=== PATIENT | female | born 1960 | race Caucasian/White ===

== ENCOUNTER → 2017-12-14 09:55 | Outpatient (CLI) | payer OTHER, SELFPAY ==
--- NOTE | 2017-12-14 10:01 | RAD_ITS ---
STUDY: X-RAY - PELVIS AND RIGHT HIP REASON FOR EXAM: Female, 57 years old. Bilateral hip pain TECHNIQUE: Radiological exam, hip, unilateral, with pelvis when performed; 2 or 3 views. COMPARISON: None. FINDINGS: There is a non-specific bowel gas pattern. Normal visualized soft tissue structures. There is minimal narrowing with cortical sclerosis and osteophyte formation of the sacroiliac joint consistent with degenerative osteoarthritic changes. Normal bilateral superior and inferior pubic rami. Normal pubic symphysis. Normal bilateral ischial tuberosities. Normal visualized femoral head. Normal acetabulum. Normal hip joint. RAD/Hip 2-3 Views with Pelvis IMPRESSION: Mild degenerative changes. Electronically Signed: Mariel Garcia MD at 4:09 EST , Service support ,
--- NOTE | 2017-12-14 10:01 | RAD_ITS ---
STUDY: X-RAY - PELVIS AND LEFT HIP REASON FOR EXAM: Female, 57 years old. Bilateral hip pain TECHNIQUE: Radiological exam, hip, unilateral, with pelvis when performed; 2 or 3 views. COMPARISON: None. FINDINGS: There is a non-specific bowel gas pattern. Normal visualized soft tissue structures. There is minimal narrowing with cortical sclerosis and osteophyte formation of the sacroiliac joint consistent with degenerative osteoarthritic changes. Normal bilateral superior and inferior pubic rami. Normal pubic symphysis. Normal bilateral ischial tuberosities. Normal visualized femoral head. Normal acetabulum. Normal hip joint. Benign appearing small bone sclerosis superior to the left acetabulum. RAD/Hip 2-3 Views with Pelvis IMPRESSION: Minimal degenerative changes centered at the sacroiliac joints. Electronically Signed: Mariel Garcia MD at 4:09 EST , Service support ,
== END ==
PROVIDERS: Family Provider Nurse Practitioner; PCP Nurse Practitioner; Visit Provider Nurse Practitioner
DX: M25.551 Pain in right hip (principal); M25.552 Pain in left hip
CPT/HCPCS: 73502

== ENCOUNTER → 2018-06-07 13:21 | Outpatient (CLI) | payer OTHER, SELFPAY | PROVIDERS: Family Provider Nurse Practitioner; PCP Nurse Practitioner; Visit Provider Internal Medicine Cardiovascular Disease | DX: I49.3 Ventricular premature depolarization (principal); Z86.79 Personal history of other diseases of the circulatory system; I47.2 Ventricular tachycardia; I10 Essential (primary) hypertension; E78.5 Hyperlipidemia, unspecified | CPT/HCPCS: 95806 ==

== ENCOUNTER → 2018-11-29 07:34 | Outpatient (CLI) | payer OTHER, SELFPAY ==
[2018-05-11 13:24] VITALS: BMI 32.8
[2018-11-29 10:10] LABS: AST(SGOT) 22 U/L (15-37); Alanine Aminotransfer ALT/SGPT 36 U/L (13-56); Albumin, Serum 3.7 g/dL (3.2-5.0); Alkaline Phosphatase 113 U/L (45-117); Bilirubin, Direct 0.15 mg/dL (0.00-0.30); Cholesterol 213 mg/dL (200); Globulin 3.3 g/dL (2.2-4.2); High Density Lipoprotein 54 mg/dL; Triglycerides 199 mg/dL; Very Low Density Lipoprotein 40 mg/dL (5-40)
== END ==
PROVIDERS: Family Provider Family Medicine; PCP Family Medicine; Referring Provider Internal Medicine Cardiovascular Disease; Visit Provider Internal Medicine Cardiovascular Disease
DX: E78.5 Hyperlipidemia, unspecified (principal)
CPT/HCPCS: 36415; 80061; 80076

== ENCOUNTER → 2019-01-24 09:16 | Outpatient (CLI) | payer OTHER, SELFPAY ==
[2018-11-30 13:14] VITALS: BMI 33.3
--- NOTE | 2019-01-24 09:20 | STE_ITS ---
Reason For Study: Arrhythmia Stress Results Protocol: Gregg Protocol Maximum Predicted HR: 164 bpm Target HR: 139 bpm % Maximum Predicted HR: 138 % Heart Stage Duration Rate BP Comment (mm:ss) (bpm) Baseline 65 132/84No Chest Pain Gregg Protocol Stage I 3:00 111 140/76No Chest Pain Gregg Protocol Stage II 3:00 129 148/72No Chest Pain Gregg Protocol Stage III 0:50 226 / Narrow Complex Tachycardia-Stopped Treadmill Patient Coughed While Lying Down and Broke Narrow Complex Recovery 80 128/72Tachycardia, Denied Chest Pain Stress Duration: 6:50 mm:ss Maximum Stress HR: 226 bpm METS: 9 Baseline Echocardiogram Findings The estimated ejection fraction is 65 %. Stress Echo Wall motion Data Resting WM Intermediate WM Stress WM Wall Motion Stress No regional wall motion abnormalities noted. EKG Data The baseline ECG displays normal sinus rhythm. The patient exercised according to the regular Gregg protocol for a total duration of 6:50. The maximum heart rate attained was 235 beats per minute. This was 143% of maximum predicted heart rate. The patient exercised into stage 3 of the Gregg protocol. During stress, there were no ST or T wave changes noted to suggest ischemia. No clinical angina was noted. Interpretation Summary The estimated ejection fraction is 65 %. Normal, adequate, treadmill echocardiogram. Negative for ischemia by EKG and echocardiographic criteria. No anginal symptoms noted. Patient did developed narrow complex supra ventricular tachycardia during exercise at a rate of around 230 bpm at around 6:45 seconds into exercise. Test was terminated, and her SVT resolved after coughing around 1:39 seconds into recovery. At no time did she have any anginal symptoms. No additional arrhythmias noted. Average exercise capacity for age. Final LVEF is 75%. Recommend consideration of changing from beta-blockers to calcium channel blockers to avoid recurrent supraventricular tachycardia. No complications. Ordering Physician: Josue Ogden Referring Physician: Michell Johnson Performed By: RoofYovana RDCS, RVT
[2019-01-24 10:40] LABS: AST(SGOT) 21 U/L (15-37); Alanine Aminotransfer ALT/SGPT 28 U/L (13-56); Albumin, Serum 3.7 g/dL (3.2-5.0); Alkaline Phosphatase 93 U/L (45-117); Bilirubin, Direct 0.16 mg/dL (0.00-0.30); Cholesterol 194 mg/dL (200); High Density Lipoprotein 63 mg/dL; Protein, Total 6.7 g/dL (6.4-8.2); Triglycerides 117 mg/dL; Very Low Density Lipoprotein 23 mg/dL (5-40)
== END ==
PROVIDERS: Family Provider Family Medicine; PCP Family Medicine; Referring Provider Internal Medicine Cardiovascular Disease; Visit Provider Internal Medicine Cardiovascular Disease
DX: R55 Syncope and collapse (principal); I49.3 Ventricular premature depolarization; I47.2 Ventricular tachycardia; Z82.49 Family history of ischemic heart disease and other diseases of the circulatory system; E78.5 Hyperlipidemia, unspecified
CPT/HCPCS: 36415; 80061; 80076; 93017; 93350

== ENCOUNTER → 2019-03-28 | Outpatient (CLI) | payer OTHER, SELFPAY ==
[2018-11-30 13:14] VITALS: BMI 33.3
--- NOTE | 2019-03-28 09:50 | US_ITS ---
STUDY: SUPERFICIAL ULTRASOUND - RIGHT FOREARM REASON FOR EXAM: Female, 58 years old. Lump on the right forearm TECHNIQUE: A superficial ultrasound was performed with real-time and static qiu-scale imaging. COMPARISON: None. FINDINGS: In the area of concern, there is a palpable lump which show some prominence in the tissue measuring 2.4 x 1.9 x 0.8 cm. This is relatively isoechoic to the surrounding tissue. Possibly an isoechoic lipoma US/Ext Non Vasc Limited/Soft Tiss IMPRESSION: As above Electronically Signed: Mandeep Archer DO at 13:10 EDT Tel , Service support ,
== END | disposition home or self-care (01) ==
LOC: US 09:49
PROVIDERS: Family Provider Family Medicine; PCP Family Medicine; Referring Provider Family Medicine; Visit Provider Family Medicine
DX: R22.31 Localized swelling, mass and lump, right upper limb (principal)
CPT/HCPCS: 76882

== ENCOUNTER → 2019-07-04 08:18 | Outpatient (CLI) | payer OTHER, SELFPAY ==
[2018-11-30 13:14] VITALS: BMI 33.3
[2019-07-04 09:12] LABS: AST(SGOT) 27 U/L (15-37); Alanine Aminotransfer ALT/SGPT 43 U/L (13-56); Albumin, Serum 3.8 g/dL (3.2-5.0); Alkaline Phosphatase 106 U/L (45-117); Bilirubin, Direct 0.15 mg/dL (0.00-0.30); Cholesterol 193 mg/dL (200); Globulin 3.2 g/dL (2.2-4.2); High Density Lipoprotein 63 mg/dL; Triglycerides 123 mg/dL; Very Low Density Lipoprotein 25 mg/dL (5-40)
== END ==
PROVIDERS: Family Provider Family Medicine; PCP Family Medicine; Referring Provider Physician Assistant Medical; Visit Provider Physician Assistant Medical
DX: E78.5 Hyperlipidemia, unspecified (principal)
CPT/HCPCS: 36415; 80061; 80076

== ENCOUNTER → 2020-03-30 | Outpatient (CLI) | payer OTHER, SELFPAY ==
[2019-07-04 14:12] VITALS: BMI 33.5
[2020-03-30 09:51] LABS: AST(SGOT) 15 U/L (15-37); Alanine Aminotransfer ALT/SGPT 28 U/L (13-56); Albumin, Serum 3.7 g/dL (3.2-5.0); Alkaline Phosphatase 78 U/L (45-117); Bilirubin, Direct 0.17 mg/dL (0.00-0.30); Cholesterol 221 mg/dL (200); Globulin 3.2 g/dL (2.2-4.2); High Density Lipoprotein 62 mg/dL; Protein, Total 6.9 g/dL (6.4-8.2); Triglycerides 79 mg/dL; Very Low Density Lipoprotein 16 mg/dL (5-40)
== END | disposition home or self-care (01) ==
LOC: LAB 08:38
PROVIDERS: PCP Family Medicine; Referring Provider Internal Medicine Cardiovascular Disease; Visit Provider Internal Medicine Cardiovascular Disease
DX: E78.5 Hyperlipidemia, unspecified (principal)
CPT/HCPCS: 36415; 80061; 80076

== ENCOUNTER → 2020-09-26 09:48 | Outpatient (CLI) | payer OTHER, SELFPAY ==
[2020-04-02 10:37] VITALS: BMI 30.7
[2020-09-26 10:51] LABS: AST(SGOT) 30 U/L (15-37); Alanine Aminotransfer ALT/SGPT 46 U/L (13-56); Albumin, Serum 3.9 g/dL (3.2-5.0); Alkaline Phosphatase 121 U/L (45-117); Bilirubin, Direct 0.19 mg/dL (0.00-0.30); Cholesterol 221 mg/dL (200); Globulin 3.2 g/dL (2.2-4.2); High Density Lipoprotein 79 mg/dL; Protein, Total 7.1 g/dL (6.4-8.2); Triglycerides 53 mg/dL; Very Low Density Lipoprotein 11 mg/dL (5-40)
== END ==
PROVIDERS: PCP Family Medicine; Referring Provider Nurse Practitioner Family; Visit Provider Nurse Practitioner Family
DX: E78.00 Pure hypercholesterolemia, unspecified (principal)
CPT/HCPCS: 36415; 80061; 80076

== ENCOUNTER → 2020-10-15 08:53 | Outpatient (CLI) | payer OTHER, SELFPAY ==
[2020-10-09 14:34] VITALS: BMI 32.5
== END ==
PROVIDERS: PCP Family Medicine; Referring Provider Specialist; Visit Provider Specialist
DX: R00.2 Palpitations (principal)
CPT/HCPCS: 93225; 93226

== ENCOUNTER → 2021-01-21 09:29 | Outpatient (CLI) | payer OTHER, SELFPAY ==
[2020-10-09 14:34] VITALS: BMI 32.5
--- NOTE | 2021-01-21 09:34 | US_ITS ---
STUDY: ULTRASOUND BREAST - RIGHT REASON FOR EXAM: Female, 60 years old. Tenderness in the right axillary region. TECHNIQUE: Axial and longitudinal images of the RIGHT breast were performed with a high resolution ultrasound transducer. # OF IMAGES: 27 COMPARISON: None. FINDINGS: RIGHT Breast: Sonographic imaging of the right axillary region was performed. No sonographic abnormality is seen. US/Breast Limited Unilateral IMPRESSION: No sonographic abnormality is seen. ASSESSMENT CATEGORY: BIRADS Category 1: Negative. A letter regarding these results will be sent to the patient by the facility within 30 days. Electronically Signed: Bill Og MD at 10:04 EDT , Service support ,
== END ==
PROVIDERS: PCP Family Medicine; Referring Provider Family Medicine; Visit Provider Family Medicine
DX: R22.31 Localized swelling, mass and lump, right upper limb (principal)
CPT/HCPCS: 76642

== ENCOUNTER 2021-12-13 10:11 | Outpatient (CLI) | payer BC, SELFPAY ==
[2021-12-13 10:35] LABS: Absolute Lymphocyte Count 1.47 X10^3/uL (0.83-4.51); Absolute Neutrophil Count 2.5 X10^3/uL (2.0-7.7); Basophil# 0.05 X10^3/uL; Basophil% 1.1 % (0-1); Eosinophil# 0.22 X10^3/uL; Eosinophils% 4.9 % (0-5); Hematocrit 43.2 % (37-47); Lymphocyte # 1.47 X10^3/ul (0.83-4.51); Lymphocyte % 32.6 % (19-41); Mean Corp Hgb Conc 34.7 g/dL (32-36); Mean Corpuscular Hgb 31.4 pg (27.0-32.0); Mean Corpuscular Volume 90.4 fL (81-99); Mean Platelet Vol. 10.2 fl (6.2-12.0); Monocyte# 0.26 X10^3/uL; Monocyte% 5.8 % (0-10); NRBC Flagged by Analyzer 0 % (0-5); Neutrophil % 55.4 % (47-70); Platelet Count 276 K/mm3 (150-450); RBC Distribution Width CV 12.3 % (11.6-14.6); RBC Distribution Width SD 40.8 fl (35.1-43.9); Red Blood Count 4.78 M/mm3 (4.2-5.4); White Blood Count 4.5 K/mm3 (4.4-11.0)
[2021-12-13 11:06] LABS: AST(SGOT) 21 U/L (15-37); Alanine Aminotransfer ALT/SGPT 41 U/L (13-56); Alkaline Phosphatase 104 U/L (45-117); Anion Gap 5 (5-15); BUN 11 mg/dL (7-18); Bilirubin, Direct 0.16 mg/dL (0.00-0.30); Calcium,Total 9.1 mg/dL (8.5-10.1); Chloride 105 mmol/L (98-107); Cholesterol 225 mg/dL (200); Creatinine, Serum 0.69 mg/dL (0.55-1.02); EST Glomerular Filtration Rate 93 mL/min (>60); Est Glom Filt Rate - Afr Amer 113 mL/min (>60); Globulin 3.4 g/dL (2.2-4.2); Glucose 98 mg/dL (74-106); High Density Lipoprotein 68 mg/dL; Magnesium 2.3 mg/dL (1.6-2.6); Potassium 3.6 mmol/L (3.5-5.1); Protein, Total 7.4 g/dL (6.4-8.2); Sodium Level 140 mmol/L (136-145); T4 Free Direct 1.15 ng/dL (0.76-1.46); Thyroid Stim Hormone (TSH) 3.69 uIU/mL (0.358-3.74); Triglycerides 144 mg/dL; Very Low Density Lipoprotein 29 mg/dL (5-40)
== END 2021-12-13 23:59 | disposition home or self-care (01) ==
LOC: LAB 10:19
PROVIDERS: PCP Family Medicine; Referring Provider Nurse Practitioner Family; Visit Provider Nurse Practitioner Family
DX: R00.2 Palpitations (principal); I47.2 Ventricular tachycardia; R25.2 Cramp and spasm; I10 Essential (primary) hypertension; E78.5 Hyperlipidemia, unspecified; Z86.79 Personal history of other diseases of the circulatory system
CPT/HCPCS: 36415; 80048; 80061; 80076; 83735; 84439; 84443; 85025

== ENCOUNTER 2022-02-04 08:57 | Outpatient (CLI) | payer SELFPAY, BC ==
--- NOTE | 2022-02-04 09:04 | ECHOD_ITS ---
Reason For Study: Arrhythmia Procedure This was a 2D Doppler, Color Flow transthoracic echocardiogram. The exam was of adequate technical quality. Exam performed in department. Left Ventricle Normal LV size. Left ventricular systolic function is normal. The estimated ejection fraction is 65 %. No evidence for diastolic dysfunction. No regional wall motion abnormalities noted. Right Ventricle Normal RV size. Normal systolic function. Atria Normal left atrium. Normal right atrium. No doppler evidence for ASD. Mitral Valve There is no mitral annular calcification. Normal mitral valve. Mild (1+) mitral valve insufficiency. Tricuspid Valve Normal tricuspid valve. Mild tricuspid valve insufficiency. Right ventricular systolic pressure estimated to be 25 mmHg. Aortic Valve Trisinus/trileaflet aortic valve. Mild focal aortic valve thickening. Pulmonic Valve The pulmonic valve is not well visualized. Great Vessels The aortic root is not well visualized. Pericardium/Pleural No pericardial effusion. MMode/2D Measurements & Calculations LVIDd: 5.4 cm IVSd: 0.90 cm LA dimension: 3.3 cm LVIDs: 3.4 cm LVPWd: 0.89 cm RVDd: 4.3 cm FS: 37.9 % LAV(MOD-bp): 70.6 ml LA A4 area: 22.5 cm2 RA A4 area: 19.1 cm2 LAV(MOD-bp) Indexed: 30.4 ml/m2 LAV(MOD-sp2): 61.3 ml LAV(MOD-sp4): 74.9 ml Time Measurements MV dec time: 0.22 sec Doppler Measurements & Calculations MV E max aiden: 96.6 cm/sec Lat Peak E' Aiden: 13.8 cm/sec Med Peak E' Aiden: 11.4 cm/sec MV A max aiden: 98.2 cm/sec E/E' lat: 7.0 E/E' med: 8.5 MV E/A: 0.98 MV V2 max: 106.9 cm/sec MV P1/2t max aiden: 105.9 cm/sec Ao V2 max: 137.8 cm/sec MV max P.6 mmHg MV P1/2t: 163.2 msec Ao max P.6 mmHg MV V2 mean: 60.3 cm/sec MV dec slope: 190.1 cm/sec2 MV mean P.7 mmHg MVA(P1/2t): 1.3 cm2 MV V2 VTI: 42.3 cm LV V1 max: 132.6 cm/sec PA V2 max: 82.8 cm/sec TR max aiden: 232.5 cm/sec LV V1 max P.0 mmHg TR max P.6 mmHg ECHO/Echo Complete Interpretation Summary Left ventricular systolic function is normal. The estimated ejection fraction is 65 %. Mild (1+) mitral valve insufficiency. Mild tricuspid valve insufficiency. Mild focal aortic valve thickening. Right ventricular systolic pressure estimated to be 25 mmHg. No evidence for diastolic dysfunction. Ordering Physician: Jim Dyson Referring Physician: Michell Du Performed By: José Proctor RCS
== END 2022-02-04 23:59 | disposition home or self-care (01) ==
LOC: CVS 09:03
PROVIDERS: PCP Family Medicine; Referring Provider Nurse Practitioner Family; Visit Provider Nurse Practitioner Family
DX: G47.33 Obstructive sleep apnea (adult) (pediatric) (principal); I47.2 Ventricular tachycardia; E78.5 Hyperlipidemia, unspecified; I10 Essential (primary) hypertension; I49.3 Ventricular premature depolarization; Z86.79 Personal history of other diseases of the circulatory system
CPT/HCPCS: 93306

== ENCOUNTER → 2022-08-06 | Outpatient (CLI) | payer BC, SELFPAY ==
[2022-08-06 08:46] LABS: AST(SGOT) 19 U/L (15-37); Alanine Aminotransfer ALT/SGPT 34 U/L (13-56); Alkaline Phosphatase 107 U/L (45-117); Bilirubin, Direct 0.18 mg/dL (0.00-0.30); Cholesterol 241 mg/dL (200); Globulin 3.4 g/dL (2.2-4.2); High Density Lipoprotein 74 mg/dL; Protein, Total 7.4 g/dL (6.4-8.2); Triglycerides 126 mg/dL; Very Low Density Lipoprotein 25 mg/dL (5-40)
== END | disposition home or self-care (01) ==
PROVIDERS: PCP Family Medicine; Visit Provider Physician Assistant Medical
DX: E78.5 Hyperlipidemia, unspecified (principal)
CPT/HCPCS: 36415; 80061; 80076

== ENCOUNTER → 2022-12-22 | Outpatient (CLI) | payer BC, SELFPAY ==
[2022-12-26 15:56] LABS: HPV APTIMA, High Risk Negative (Negative)
== END | disposition home or self-care (01) ==
LOC: LABSPEC 11:09
PROVIDERS: PCP Family Medicine; Visit Provider Registered Nurse
DX: Z12.4 Encounter for screening for malignant neoplasm of cervix (principal)
CPT/HCPCS: 87624; 88175; G0145

== ENCOUNTER → 2023-10-14 | Outpatient (CLI) | payer BC, SELFPAY ==
--- NOTE | 2023-10-14 14:36 | US_ITS ---
STUDY: ULTRASOUND OF THE FEMALE PELVIS - COMPLETE REASON FOR EXAM: Female, 63 years old. PELVIC MASS LMP: 6 years ago, postmenopausal age. TECHNIQUE: Transabdominal and Transvaginal TECHNICAL QUALITY: Adequate. COMPARISON: 09/10/2015. FINDINGS: The uterus is retroverted and is in a midline position. The uterus measures 12.9 x 8.8 x 5.7 cm. Normal uterine cervix. The endometrium is obscured due to shadowing artifact related to calcifications and uterine fibroids. There are 5 heterogeneous masses with shadowing artifact, some revealing dystrophic calcification and compatible with uterine fibroids, the 3 largest one seen at the left uterus measuring 6.4 x 6.1 x 4.8 cm, the second largest seen at the right uterus measuring 3.9 x 2.8 cm revealing calcifications. The third largest lesion is seen along midline posterior uterus measuring 3.1 x 3.2 x 2.9 cm. I.U.D. - The patient does not have an I.U.D. The bilateral ovaries are not visualized. There is no fluid in the cul-de-sac. The volume of the bladder was 547.6 ml. US/Pelvic w/ Transvaginal IMPRESSION: Myomatous uterus as described of scarring the visualization of the endometrium. Nonvisualized bilateral ovaries, remainder of the pelvic ultrasound unremarkable. Electronically Signed: Maricel Wilkes MD at 23:26 [id number] ,
== END | disposition home or self-care (01) ==
PROVIDERS: PCP Family Medicine; Referring Provider Urology; Visit Provider Urology
DX: Z01.411 Encounter for gynecological examination (general) (routine) with abnormal findings (principal); N28.89 Other specified disorders of kidney and ureter
CPT/HCPCS: 76830; 76856

== ENCOUNTER → 2023-11-20 | Outpatient (CLI) | payer BC, SELFPAY ==
--- OUTSIDE RECORDS SUMMARY | 2023-11-20 07:05 | XMS RPT_ITS | CCD ---
Author Name Unknown Address [address] [place] [address] Organization [facility] Care Team Providers Care Threader Name Role Phone Britta Weldon Unavailable Swathi Wild Unavailable Unavailable Unavailable Unavailable Britta Weldon Unavailable Nancie Clark Unavailable Gabe Weinberg Unavailable Nancie Clark Primary Care Provider [phone] KYLAH CH Attending UnavailKYLAH Choi Referring UnavailNANCIE Bah Primary Care Unavailable KYLAH CH Attending UnavailKYLAH Choi Referring UnavailNANCIE Bah Primary Care Unavailable NANCIE CLARK Attending Unavailable NANCIE CLARK Referring Unavailable MICHELL TIRADO Primary Care Unavailable Britta Weldon Unavailable Nancie Clark Unavailable Gabe Weinberg Unavailable [phone] Michell Tirado Primary Care Provider Unavailab Nancie Olsen Unavailable Robert Hendricks Unavailable Britta Weldon Unavailable Gabe Weinberg Unavailable Michell Tirado Primary Care Provider Unavailab Britta Dong MD Unavailable Amber WHELAN, Kristina Unavailable [phone] Gabe Weinberg MD Unavailable [phone] Michell Tirado MD E Primary Care Provider Unavai js Clark MD, Kristina Unavailable [phone] Robert Hendricks MD Unavailable Shiraz WHELAN, Britta M Unavailable [phone] Amber WHELAN, Kristina Unavailable Lenard WHELAN, Gabe Conway Unavailable Michell Tirado MD Primary Care Provider Amber WHELAN, Kristina Unavailable Robert Hendricks MD Unavailable Amber WHELAN, Kristina Unavailable Ambre WHELAN, Kristina Unavailable Lenard WHELAN, Gabe Conway Unavailable Amber WHELAN, Kristina Unavailable Robert Hendricks MD Unavailable HERMAN TAYLOR Attending Unavailable MIEDEL, MICHELL E Primary Care Unavailable AKHIL DUPREE Attending Unavailable MIEDEL, MICHELL E Primary Care Unavailable AKHIL DUPREE Admitting Unavailable AKHIL DUPREE Referring Unavailable MIEDEL, MICHELL E Primary Care Unavailable AKHIL DUPREE Attending Unavailable MIEDEL, MICHELL E Primary Care Unavailable KANU MCNEAL Attending Unavailab le MIEDEL, MICHELL E Primary Care Unavailable KANU MCNEAL Attending Unavailab le MIEDEL, MICHELL E Primary Care Unavailable KANU MCNEAL Attending Unavailab le MIEDEL, MICHELL E Primary Care Unavailable AKHIL DUPREE Admitting Unavailable MIEDEL, MICHELL E Primary Care Unavailable MIKAYLA ROTH Attending Unavailable AKHIL DUPREE Referring Unavailable AKHIL DUPREE Referring Unavailable MIEDEL, MICHELL E Primary Care Unavailable AKHIL DUPREE Attending Unavailable MIEDEL, MICHELL E Referring Unavailable MIEDEL, MICHELL E Primary Care Unavailable MIEDEL, MICHELL E Attending Unavailable MIEDEL, MICHELL E Primary Care Unavailable KANU MCNEAL Admitting Unavailab KANU Ellis Attending Unavailab le MIEDEL, MICHELL E Primary Care Unavailable KANU MCNEAL Attending Unavailab KANU Ellis Referring Unavailab le DUPREEAKHIL Referring Unavailable DUPREEAKHIL Admitting Unavailable MIEDEL, MICHELL E Primary Care Unavailable MIKAYLA ROTH Attending Unavailable AKHIL DUPREE Referring Unavailable DUPREEAKHIL PERRY Admitting Unavailable MIEDEL, MICHELL E Primary Care Unavailable MIKAYLA ROTH Attending Unavailable AKHIL DUPREE Referring Unavailable DUPREEAKHIL Admitting Unavailable MIEDEL, MICHELL E Primary Care Unavailable AZ HUNTER Attending Unavailable MIEDEL, MICHELL E Primary Care Unavailable AKHIL DUPREE Admitting Unavailable AZ HUNTER Attending Unavailable AKHIL DUPREE Referring Unavailable Unavailable Primary Care Provider Unavailabl e Allergies Allergy Classification Reported Allergen(s) Allergy Type Date of Onset Reaction(s) Facility HMG-CoA Reductase Inhibitors (statins) (20 sources) Pravastatin Drug Allergy 8 [facility] (17 sources) Hmg-Coa Reductase Inhibitors (Statins); Translations: [[id number] REDUCTASE INHIBITORS] Propensity to adverse reactions to drug 8 [facility] (13 sources) Pravastatin; Translations: [Unknown] Drug Allergy 9 [facility] Rep[facility] (12 sources) Simvastatin; Translations: [SIMVASTATIN] Drug Allergy 9 [facility] Medications Current Medications Medication Drug Class(es) Dates Sig (Normalized) Sig (Original) aspirin 81 mg delayed release oral tablet (19 sources) Platelet Aggregation Inhibitor, Nonsteroidal Anti-inflammatory Drug Start: 07-05-2021 End: 08-04-2021 take 1 tablet by mouth twice daily aspirin 81 MG EC tablet Take 1 (one) tablet (81 mg total) by mouth 2 (two) times a day . 60 tablet 0 07/05/2021 08/04/2021 Active Completed/Discontinued Medications Medication Drug Class(es) Dates Sig (Normalized) Sig (Original) gemfibrozil 600 mg oral tablet (3 sources) Peroxisome Proliferator Receptor alpha Agonist Start: 07-23-20 End: 02-15-20 21 take 1 tablet by mouth twice daily gemfibroziL (LOPID) 600 MG tablet Take 600 mg by mouth 2 (two) times a day . 0 07/23/2020 02/14/2021 Discontinued (Discontinued by another clinician) loratadine 10 mg oral capsule (7 sources) Start: 12-28-19 End: 02-15-20 loratadine (CLARITIN LIQUI-GEL) 10 mg cap CLARITIN 10 MG CAPS 0 12/28/2015 02/14/2021 Discontinued (Discontinued by another clinician) medroxyPROGESTERone acetate 10 mg oral tablet (4 sources) Progestin Start: 06-06-20 End: 02-15-20 take 1 tablet by mouth once daily medroxyPROGESTERone (PROVERA) 10 MG tablet Take 1 (one) tablet (10 mg total) by mouth daily for 10 days . 10 tablet 2 06/06/2019 02/14/2021 Discontinued (Discontinued by another clinician) mometasone furoate 0.05 mg/actuat metered dose nasal spray (5 sources) Corticosteroid Start: 12-28-19 16 End: 02-15-20 mometasone (NASONEX) 50 mcg/actuation nasal spray mometasone NASONEX 50 MCG/ACT SUSP Take as directed MOMETASONE FUROATE [id number] Jazlyn Mello RN 12-28-2015 [facility] ([id number]) 0 12/28/2015 02/14/2021 Discontinued (Discontinued by another clinician) 1 ml triamcinolone acetonide 40 mg/ml injection (1 source) Corticosteroid Start: 02-15-20 End: 02-15-20 triamcinolone acetonide (KENALOG-40) injection 40 mg Problems Active Problems Problem Classification Problem Date Documented Date Episodic/Chronic Joint disorders and dislocations; trauma-related (20 sources) Chondromalacia; Translations: [Chondromalacia patellae, right knee] Onset: 02-27-2021 Chronic Joint disorders and dislocations; trauma-related (12 sources) Acute tear of lateral meniscus of right knee; Translations: [Other tear of lateral meniscus, current injury, right knee, initial encounter] Onset: 05-29-2021 Episodic Menopausal disorders (1 source) Postmenopausal bleeding; Translations: [Post-menopause bleeding] Chronic Menstrual disorders (19 sources) Menorrhagia; Translations: [Excessive and frequent menstruation with regular cycle] Onset: 06-01-2018 06-01-2018 Chronic Nonmalignant breast conditions (2 sources) Breast lump; Translations: [Breast nodule] Episodic Osteoarthritis (18 sources) Osteoarthritis of right knee joint; Translations: [Unilateral primary osteoarthritis, right knee] Onset: 02-27-2021 Chronic Other upper respiratory infections (1 source) Sore throat symptom; Translations: [Acute pharyngitis, unspecified] Episodic Residual codes; unclassified (2 sources) History of arthroscopy of knee joint; Translations: [Other specified postprocedural states] Episodic Unclassified (1 source) Patient encounter status; Translations: [Visit for screening mammogram] Past or Other Problems Problem Classification Problem Date Documented Da te Episodic/Chronic Other and unspecified benign neoplasm (1 source) Leiomyoma; Translations: [Fibroids] Episodic Results Test Name Value Interpretation Reference Range Facil ity Vital Signs Date Time Vital Sign Value Performing Clinician Orlando pimentel 06-21-2021 14:14-0400 Body height 185.4 cm Kanu Mcneal MD Work Phone: [facility] 06-21-2021 14:14-0400 Body mass index (BMI) [Ratio] 31.66 kg/m2 Kanu Mcneal MD Work Phone: [facility] 06-21-2021 14:14-0400 Body weight 108.86 kg Kanu Mcneal MD Work Phone: [facility] 06-21-2021 14:14-0400 Diastolic blood pressure 85 mm[Hg] Kanu Mcneal MD Work Phone: [facility] 06-21-2021 14:14-0400 Heart rate 81 /min Kanu Mcneal MD Work Phone: [facility] 06-21-2021 14:14-0400 Systolic blood pressure 129 mm[Hg] Kanu Mcneal MD Work Phone: [facility] 06-15-2021 18:29-0400 Diastolic blood pressure 84 mm[Hg] Herman Taylor MD Work Phone: [facility] 06-15-2021 18:29-0400 Systolic blood pressure 130 mm[Hg] Herman Taylor MD Work Phone: [facility] 06-15-2021 18:26-0400 Body height 185.4 cm Herman Taylor MD Work Phone: [facility] 06-15-2021 18:26-0400 Body mass index (BMI) [Ratio] 31.66 kg/m2 Herman Taylor MD Work Phone: [facility] 06-15-2021 18:26-0400 Body temperature 98.4 [degF] Herman Taylor MD Work Phone: [facility] 06-15-2021 18:26-0400 Body weight 108.86 kg Herman Taylor MD Work Phone: [facility] 06-15-2021 18:26-0400 Heart rate 67 /min Herman Taylor MD Work Phone: [facility] 06-15-2021 18:26-0400 Respiratory rate 18 /min Herman Taylor MD Work Phone: [facility] 06-15-2021 18:26-0400 SaO2% (BldA) [Mass fraction] 95 % Herman Taylor MD Work Phone: [facility] 02-14-2021 08:02-0400 Body height 182.9 cm Akhil Dupree CNP Work Phone: [facility] 02-14-2021 08:02-0400 Body mass index (BMI) [Ratio] 32.55 kg/m2 Akhil Dupree CNP Work Phone: [facility] 02-14-2021 08:02-0400 Body weight 108.86 kg Akhil Dupree CNP Work Phone: [facility] Encounters Encounter Date Encounter Type Care Provider Facility Start: 10-31-2022 Documentation procedure Mammog yosef Coordinator [facility] Start: 10-31-2022 Letter encounter Mammography Coordinator [facility] Department Start: 10-24-2022 Documentation procedure [facility] Start: 10-24-2022 Letter encounter Mammography Coordinator [facility] Department Start: 10-21-2022 Documentation procedure Mammog yosef Coordinator [facility] Start: 10-21-2022 Letter encounter Mammography Coordinator [facility] Department Start: 10-17-2022 End: 10-17-2022 ambulatory Facility:[facility] Start: 08-22-2021 End: 08-23-2021 ambulatory [facility] Start: 07-19-2021 End: 07-19-2021 ambulatory KANU MCNEAL [facility] Start: 07-19-2021 End: 07-19-2021 Postop follow up visit related to original px Kanu Mcneal MD Work Phone: [facility] Procedures Date Procedure Procedure Detail Performing Clinician Start: 10-17-2022 Mammography Mammograph y Coordinator Start: 02-14-2021 Arthrocentesis aspir &/inj major jt/bursa w/o Akhil Dupree [facility] Work Phone: Start: 08-24-2020 Microscopic observat ion [Identifier] in Cervix by Cyto stain [facility] Start: 08-21-2020 MG Breast - bilatera l screening Nancie Clark Work Phone: Start: 08-21-2020 Mammography [facility] Pcp c Start: 02-02-2019 Us breast uni real t mirna with image limited Kylah Ch Work Phone: Start: 02-02-2019 MG Breast - bilatera l diagnostic Kylah Ch Work Phone: Start: 02-02-2019 Mammography Nancie Quinn s Start: 04-06-2018 Microscopic observat ion [Identifier] in Cervix by Cyto stain Kylah Ch Start: 12-23-2017 Mammography Kylah Jerson schulte Plan of Treatment Date Care Activity Detail Author Start: 10-17-2023 Mammography MAMMOGRAM [facility] Start: 08-24-2023 Screening for malign ant neoplasm of cervix Pap Smear [facility] Start: 10-26-2022 DEPRESSION ASSESSMENT DEPRESSION ASS ESSMENT [facility] Start: 08-24-2021 History and physical examination, annual for health maintenance Wellness Visit [facility] Start: 08-21-2021 Screening for malign ant neoplasm of breast Mammogram [facility] Start: 08-21-2021 Screening mammography Mammogram [facility] Start: 07-19-2021 End: 07-19-2021 Follow-up encounter 07/19/2021 Follow-Up Sports Medicine Kanu Mcneal MD [address] [place] [address] [facility] Start: 07-10-2021 End: 09-08-2022 Ultrasound duplex venous leg right Ultrasound duplex venous leg right Vascular Ultrasound Routine Acute medial meniscus tear of right knee, subsequent encounter S/P right knee arthroscopy Expected: 07/10/2021, Expires: 09/08/2022 [facility] Work Phone: Immunizations Immunization Date Immunization Notes Care Provider Shelby gómez 12-08-2020 Moderna SARS-CoV-2 Vaccination Shana Guerra [facility] 11-09-2020 Moderna SARS-CoV-2 Vaccination Covid Oes Pcp c [facility] Payers Date Payer Category Payer Unknown [employer] P[employer] OOS [id number] 2021-Present [phone] [address] [place] [address] PPO [id number] 2021 Unknown [id number] 2020 Unknown [id number] 2020 Unknown [id number] 2014 Unknown xxxxxxxxx [id number] 2014 Unknown [id number] [id number] 2014 Unknown [id number] [id number] 1962 Unknown [id number] 2.16.840.1.073457.3.579.2.900 1962 Unknown [id number] 2.16.840.1.024765.3.579.2.900 1962 Unknown [id number] 2.16.840.1.765636.3.579.2.900 1962 Unknown [id number] 2.16.840.1.849764.3.579.2.903 1962 Unknown [id number] 2.16.840.1.516759.3.579.2.90 1962 Unknown [id number] 2.16.840.1.750733.3.579.2.903 1962 Unknown [id number] 2.16.840.1.561206.3.579.2.903 1962 Unknown [id number] 2.16.840.1.308242.3.579.2.903 1962 Unknown [id number] 2.16.840.1.310663.3.579.2.903 1962 Unknown [id number] 2.16.840.1.291058.3.579.2.903 1962 Unknown [id number] 2.16.840.1.616495.3.579.2.903 1962 Unknown [id number] 2.16.840.1.863003.3.579.2.903 1962 Unknown [id number] 2.16.840.1.754098.3.579.2.903 1962 Unknown [id number] 2.16.840.1.001206.3.579.2.903 1962 Unknown [id number] 2.16.840.1.907644.3.579.2.903 1962 Unknown [id number] 2.16.840.1.764799.3.579.2.903 1962 Unknown [id number] 2.16.840.1.706002.3.579.2.903 1962 Unknown [id number] 2.16.840.1.464216.3.579.2.903 1962 Unknown [id number] 2.16.840.1.162859.3.579.2.903 Social History Date Type Detail Facility Start: 01-07-2017 End: 06-22-2017 Tobacco smoking status NHIS Never smoker [facility] Start: 1960 Sex Assigned At Not on file [facility] Work Phone: Start: 01-07-2017 Alcohol Comment socially [facility] Start: 08-21-2020 End: 06-15-2021 Tobacco use and exposure Never used [facility] Start: 08-21-2020 End: 07-20-2021 Alcohol intake Current drinker of alcohol (finding) [facility] Exposure to SARS-CoV -2 (event) Not sure [facility] Start: 08-24-2020 End: 03-06-2021 History SDOH Alcohol Frequency 4 [facility] Start: 08-24-2020 End: 03-06-2021 History SDOH Alcohol Std Drinks 1 [facility] Exposure to SARS-CoV -2 (event) Yes [facility] Start: 06-15-2021 Tobacco smoking stat [facility] Ex-smoker [facility] History of tobacco use Cigarette Smoker [facility] Start: 07-08-2021 End: 07-20-2021 Alcohol intake [facility] Tobacco smoking stat [facility] Tobacco smoking consumption unknown [facility] Clinical Notes 02-14-2021 to 10-31-2022 Letter - Mammography Coordinator - 10/31/2022 4:07 PM ESTLetter - Mammography Coordinator - 10/24/2022 4:13 PM ESTLetter - Mammography Coordinator - 10/21/2022 8:04 AM ESTPatient Instructions Note Date & Type Note Facility 10-31-2022 Miscellaneous Notes November 03, 2022 PID: [id number] Winifred Rosa [address] [place] [address] Dear Ms. Orosco, Your prior imaging studies have arrived and been compared to your current study. We are pleased to inform you that the results of your recent breast imaging exam on 10/17/2022 are normal. Your mammogram demonstrates that you have dense breast tissue, which could hide abnormalities. Dense breast tissue, in and of itself, is a relatively common condition. Therefore, this information is not provided to cause undue concern; rather, it is to raise your awareness and promote discussion with your health care provider regarding the presence of dense breast tissue in addition to other risk factors. Early detection of cancer is very important. We also understand recommendations regarding breast cancer screening are controversial. Please discuss with your primary care provider which strategy is best for you and whether a mammogram is right for you. Your imaging studies and report will be kept on file at [facility] as part of your permanent medical record and are available for your continuing care. Thank you for allowing us to help in meeting your health care needs. Sincerely, Dr. Leonardo Interpreting Radiologist [facility] (Normal Old Films compared) documented in this encounter [facility] 10-24-2022 Miscellaneous Notes October 28, 2022 PID: [id number] Winifred Orosco [address] [place] [address] Dear Ms. Orosco, Your prior imaging studies have arrived and been compared to your current study. We are pleased to inform you that the results of your recent breast imaging exam on 10/17/2022 are normal. Your mammogram demonstrates that you have dense breast tissue, which could hide abnormalities. Dense breast tissue, in and of itself, is a relatively common condition. Therefore, this information is not provided to cause undue concern; rather, it is to raise your awareness and promote discussion with your health care provider regarding the presence of dense breast tissue in addition to other risk factors. Early detection of cancer is very important. We also understand recommendations regarding breast cancer screening are controversial. Please discuss with your primary care provider which strategy is best for you and whether a mammogram is right for you. Your imaging studies and report will be kept on file at [facility] as part of your permanent medical record and are available for your continuing care. Thank you for allowing us to help in meeting your health care needs. Sincerely, Dr. Leonardo Interpreting Radiologist [facility] (Normal Old Films compared) documented in this encounter [facility] 10-21-2022 Miscellaneous Notes October 21, 2022 PID: [id number] Winifred Orosco [address] [facility] [place] [address] Dear Ms. Orosco, Your breast imaging exam 10/17/2022 showed a possible finding that may require additional imaging studies for a complete evaluation. However, we recognize you have prior imaging studies at facilities other than [facility], and would like the opportunity to compare your recent imaging with those studies to evaluate for any change. At this time, we have requested your prior studies. Your mammogram demonstrates that you have dense breast tissue, which could hide abnormalities. Dense breast tissue, in and of itself, is a relatively common condition. Therefore, this information is not provided to cause undue concern; rather, it is to raise your awareness and promote discussion with your health care provider regarding the presence of dense breast tissue in addition to other risk factors. If/when your prior studies arrive, a final report will be sent to your healthcare provider and/or you. In addition, you will receive a new result letter and or phone call If you need additional imaging. If we do not receive prior studies within 30 days of your exam, you will receive a reminder letter and or phone call to schedule your diagnostic imaging. Your imaging studies and reports are kept on file at [facility] as part of your permanent medical record, and are available for your continuing care. If you have any questions or concerns, please call [phone]. Thank you for choosing [facility] for your imaging needs. Sincerely, Dr. Leonardo Interpreting Radiologist [facility] (Old Films) documented in this encounter [facility] 10-17-2022 Note HNO ID: [id number] Author: RT Barrett(R) Service: ? Author Type: Technologist Type: Progress Notes Filed: 10/17/2022 1:20 PM Note Text: Radiology Service Progress Note PATIENT NAME: Winifred Orosco DATE OF SERVICE: October 17, 2022 TIME: 1:19 PM PATIENT IDENTITY VERIFICATION COMPLETED USING TWO (2) IDENTIFIERS: Name and Date of confirmed by patient verbally. FALL SCREENING: Has the patient had 2 falls in the last year or 1 fall with injury or currently using an Ambulatory Assistive Device (Walker, Cane, Wheelchair, Crutches, etc.)? No PATIENT GENDER DATA: Female. status: : No status: NO. PATIENT RELEVANT IMPLANT DATA REVIEWED: Not Applicable RADIOLOGY DEPARTMENT: Mammography PERIPHERAL IV DATA: Not applicable SIGNED BY: RT Barrett(R) October 17, 2022 1:19 PM [facility] 07-20-2021 History of Present illness Narrative Winifred Orosco comes in today for a followup of her right knee. She is 2 weeks out. If you recall, we did a right knee arthroscopy. Unfortunately, there was grade 3 chondromalacia of the medial femoral condyle, femoral trochlear groove, and grade 4 chondromalacia in the patella. We did a chondroplasty of the right knee with a partial medial meniscectomy. The patient is 2 weeks out. She has full range of motion of the ankle and hip. Right knee has 5 degrees short of full extension and 120 degrees of flexion. No DVT signs or symptoms. Calves soft. IMPRESSION Two weeks status post right knee arthroscopy. PLAN At this point in time, I have informed her the next step would in fact be total knee replacement. She says she is going to continue to work through the process. I have shown her the pictures. We talked about return to work. She will do her home exercises, local wound care, aspirin protocol. I will see her on a p.r.n. basis. documented in this encounter [facility] 06-22-2021 History of Present illness Narrative She comes in today for a preoperative consultation regarding her right knee. Winifred is a patient who has had right knee pain and discomfort for quite some period of time. However, over the course of the last 6 months, it has really started to increase in its severity and its consistency. 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 Unfortunately, by the end of October, she tried a 2nd shot and there was no relief whatsoever. Despite 2 injections as well as anti-inflammatories and ice, she has had increased pain, increased swelling and says that ever since November of 2020, it has been a constant nagging pain. It is difficulty to do steps. It is difficulty to go down inclines. She feels like the knee pops, it cracks, it hurts, it gives out on her and at this time, she presents for her pre-surgical visit regarding her knee arthroscopy. This patient went on to have x-ray examination. X-ray examination, 4 views of the right knee, revealed preservation of the joint space. She went on to have an MRI scan April 02, 2021, which showed abnormalities in both the medial and lateral meniscus, as well as some patellofemoral chondromalacia, but also showed a large Sandra's cyst. ALLERGIES Pravastatin, simvastatin, and statins. MEDICATIONS Include baby aspirin, diltiazem, glucosamine, lisinopril, fish oil. ILLNESSES High blood pressure. SURGERIES Biopsy, fine-needle aspiration. SOCIAL HISTORY She is . Does not smoke. Drinks on a social basis. REVIEW OF SYSTEMS Joint pain, arthralgias, knee pain, knee swelling. PHYSICAL EXAM General: She is awake, alert, and oriented x3, ambulates without assistive device. Chest: Clear. Heart: Regular rate and rhythm. Abdomen: Benign. Right lower extremity: Neurologically intact. Full range of motion of the ankle, knee, and hip. At this point in time, the right knee has tenderness on the medial and lateral joint line with a positive Jennifer. She has patellofemoral crepitus with a negative anterior drawer, negative posterior drawer. Negative Manny. Positive Jennifer. No varus or valgus instability. IMPRESSION 1.Right knee medial and lateral meniscus tear. 2.Right knee chondromalacia patella. PLAN At this point in time, we will proceed forward with right knee arthroscopy. All risks and complications were discussed. I have discussed all the treatment options with the patient. The patient is part of the entire decision-making process. Mental status was assessed. Narcotic review was performed. She has no listed narcotics. The patient is fully vaccinated for COVID-19. documented in this encounter [facility] 06-15-2021 History of Present illness Narrative PATIENT NAME: Winifred Orosco [facility] [address] [facility] [address] : 1960 DATE OF VISIT: 06/15/2021 SS#: [id number] PROVIDER: Herman Taylor MD Chief Complaint Patient presents with Covid-19 Screening headache, sore throat, x this morning. fully vaccinated SUBJECTIVE 61 y.o. female presents Covid-19 Screening (headache, sore throat, x this morning. fully vaccinated) HPI BRASHER, ST--onset this morning. Mild, infrequent cough to clear throat. Denies anosmia or ageusia. Has had COVID. Was vaccinated as well. MEDICAL ISSUES History reviewed. No pertinent past medical history. 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 Tobacco Use Smoking status: Former Smoker Types: Cigarettes Smokeless tobacco: Never Used Vaping Use Vaping Use: Never used Substance and Sexual Activity Alcohol use: Yes Drug use: No Sexual activity: Yes Partners: Male control/protection: Post-menopausal Other Topics Concern Not on file Social History Narrative Not on file Social Determinants of Health Financial Resource Strain: Difficulty of Paying Living Expenses: Not on file Food Insecurity: Worried About Running Out of Food in the Last Year: Not on file Ran Out of Food in the Last Year: Not on file Transportation Needs: Lack of Transportation (Medical): Not on file Lack of Transportation (Non-Medical): Not on file Physical Activity: Days of Exercise per Week: Not on file Minutes of Exercise per Session: Not on file Stress: Feeling of Stress : Not on file Social Connections: Frequency of Communication with Friends and Family: Not on file Frequency of Social Gatherings with Friends and Family: Not on file Attends Islam Services: Not on file Active Member of Clubs or Organizations: Not on file Attends Club or Organization Meetings: Not on file Marital Status: Not on file Housing Stability: Unable to Pay for Housing in the Last Year: Not on file Number of Places Lived in the Last Year: Not on file Unstable Housing in the Last Year: Not on file FAMILY HISTORY Family History Problem Relation Age of Onset Lung cancer Mother Uterine cancer Paternal Aunt Uterine cancer Cousin Breast cancer Neg Hx REVIEW OF SYSTEMS Review of Systems Constitutional: Negative for chills and fever. Gastrointestinal: Negative for nausea and vomiting. MEDICATIONS PRIOR TO VISIT Current Outpatient Medications on File Prior to Visit Medication Sig Dispense Refill diltiazem (CARDIZEM CD) 120 MG 24 hr capsule glucosamine sulfate 2KCl 1,000 mg Tab GLUCOSAMINE HCL TABS losartan (COZAAR) 25 MG tablet omega 7-hzs-mjw-fish oil (FISH OIL) 300-1,000 mg CpDR Take by mouth . aspirin 81 MG EC tablet ASPIRIN EC 81 MG TBEC LISINOPRIL ORAL Take by mouth . No current facility-administered medications on file prior to visit. ALLERGIES/INTOLERANCES Allergies Allergen Reactions Pravastatin Simvastatin Dwwhxcb-Qmy-Qhe Reductase Inhibitors OBJECTIVE BP 130/84 Pulse 67 Temp 98.4 F (36.9 C) (Temporal) Resp 18 Ht 6' 1 Wt 108.9 kg (240 lb) LMP 03/26/2018 SpO2 95% BMI 31.66 kg/m Physical Exam Constitutional: General: She is not in acute distress. Appearance: She is well-developed. HENT: Head: Normocephalic and atraumatic. Right Ear: External ear normal. Left Ear: External ear normal. Mouth/Throat: Pharynx: No posterior oropharyngeal erythema. Eyes: General: No scleral icterus. Right eye: No discharge. Left eye: No discharge. Conjunctiva/sclera: Conjunctivae normal. Pulmonary: Effort: Pulmonary effort is normal. No respiratory distress. Abdominal: General: There is no distension. Musculoskeletal: Cervical back: Normal range of motion. Skin: General: Skin is dry. Neurological: Mental Status: She is alert and oriented to person, place, and time. Coordination: Coordination normal. Psychiatric: Behavior: Behavior normal. Thought Content: Thought content normal. Judgment: Judgment normal. PROCEDURE Procedures Results No results found for this or any previous visit (from the past 168 hour(s)). ASSESSMENT/PLAN (expressed as patient instructions): 1. Sore throat COVID-19, Molecular No follow-ups on file. MDM Section ORDERS PLACED THIS VISIT Orders Placed This Encounter Procedures COVID-19, Molecular MEDICATION LIST AT END OF VISIT Current Outpatient Medications Medication Sig Dispense Refill diltiazem (CARDIZEM CD) 120 MG 24 hr capsule glucosamine sulfate 2KCl 1,000 mg Tab GLUCOSAMINE HCL TABS losartan (COZAAR) 25 MG tablet omega 6-izi-raj-fish oil (FISH OIL) 300-1,000 mg CpDR Take by mouth . aspirin 81 MG EC tablet ASPIRIN EC 81 MG TBEC LISINOPRIL ORAL Take by mouth . No current facility-administered medications for this visit. Isolate pending result. documented in this encounter [facility] 06-15-2021 Instructions Herman Taylor MD - 06/15/2021 6:39 PM EDT [facility] COVID-19 Post-swabbing Instructions We will do our best to update you as soon as we receive your test results, but if we had to send your test to be run at the lab, you may see the results on MyChart or receive a call from [facility] before we are able to contact you. You should receive a call from our COVID-19 results provider as soon as possible. If you test POSITIVE for COVID-19: Isolate until: - it has been 10 days since you developed symptoms AND - you have been without a fever (100.4 F) for at least 24 hours without the use of fever reducing medication AND - your symptoms are improving Isolation is when you test positive for COVID-19 and is meant to keep the infected person away from all others, even in their own home. If you live with others, stay in a specific sick room or area and away from other people or animals, including pets. Use a separate bathroom, if available. Seek emergency medical care immediately if you develop worsening warning signs including: - trouble breathing - persistent pain or pressure in the chest - new confusion - inability to wake or stay awake - bluish lips or face It is not recommended by the CDC to have another COVID-19 test done in order to discontinue isolation or return to work/school. We can provide return to work and school documentation as needed. If you test NEGATIVE for COVID-19: Symptomatic for COVID-19 If you have COVID-19 symptoms (symptomatic) and you are under a 14 day quarantine because of significant exposure (which is defined as close contact with someone that has a laboratory confirmed infection from COVID-19 or a person that was diagnosed by a medical professional), then a negative COVID-19 test does not clear you from the 14 day quarantine. You were likely not clinically infectious at the time of the test. This does not mean that you will not get sick and develop symptoms. It is possible that you were in the early phase of the infection at the time of your test and you could be positive later. For these reasons: 1) If the test was due to having symptoms WITH significant exposure, you should remain in quarantine: - for the full 14 days AND - you have been without a fever (100.4 F) for at least 24 hours without the use of fever reducing medication AND - your symptoms are improving If you are unable to separate yourself completely from the COVID-19 positive person (i.e. parent caring for a child), CDC guidelines recommend you quarantine for 24 days (10 days from symptom onset of the COVID positive person PLUS 14 additional days). 2) If the test was due to symptoms WITHOUT significant exposure, you may return to work/school if: - you have been without a fever (100.4 F) for at least 24 hours without the use of fever reducing medication AND - your symptoms are improving Asymptomatic for COVID-19 If you do not have any COVID-19 symptoms (asymptomatic): 1) you and your provider may have decided together not to do asymptomatic COVID-19 testing at this time (or your test is still pending). Your quarantine may end after 10 days if: - you remain without symptoms (without symptoms reducing medications) for the full 10 days since your last exposure to a known COVID-19 positive person - you continue to monitor symptoms for the full 14 days after exposure. If symptoms develop at any time during these 14 days, please self-isolate and contact your health care provider for further instructions as you may need further testing. 2) you and your provider may have decided together to do asymptomatic COVID-19 testing at this time. Your quarantine may end after 7 days if: - your COVID-19 test is done after day 5 (post exposure) - your COVID-19 test is negative (not detected) - you remain without symptoms (without symptom reducing medications) during your quarantine - you continue to monitor symptoms for the full 14 days after exposure. If symptoms develop at any time during these 14 days, please self-isolate and contact your health care provider for further instructions as you may need further testing. When Do I Self-Quarantine? You should quarantine if you have had a significant exposure which is defined as having been in close contact (as defined below) with someone that has a laboratory confirmed infection from COVID-19 or that person was diagnosed by a medical professional. This includes contact within 48 hours prior to when the COVID-19 positive person developed symptoms. - Quarantine is used to keep someone who might have been exposed to COVID-19 away from others. - Quarantine helps prevent spread of disease that can occur before a person knows they are sick or if they are infected with the virus without feeling symptoms. - People in quarantine should stay home, separate themselves from others, monitor their health, and follow directions from their state or local health department. What if Someone is Fully Vaccinated and Has a Significant COVID-19 exposure? - If you are fully vaccinated, and you have had close contact with someone who tested positive for COVID-19, you do not need to isolate/quarantine or get tested unless you have symptoms. - If you have symptoms after an exposure, you will need a negative test to resume normal activity. - People are considered fully vaccinated: 2 weeks after their second dose in a 2-dose series (such as Pfizer or Moderna vaccines) OR 2 weeks after a single-dose vaccine (such as Sacha & Sacha's Emerita vaccine) What counts as close contact? - You were within 6 feet of someone who has COVID-19 for at least 15 minutes - You provided care at home to someone who is sick with COVID-19 - You had direct physical contact with the person (touched, hugged, or kissed them) - You shared eating or drinking utensils - They sneezed, coughed, or somehow got respiratory droplets on you When and How Will I Get Results? Tests performed in the clinic will be available within 15-20 minutes from initiation of test. If your test was sent out to the lab for testing, it could take anywhere from 1-5 days after your specimen is collected. The provider/practice who placed the order for your test will notify you of your results. - If you have an active [employer] account, and your COVID-19 test is negative (not detected), then you will be notified through your [employer] account. You should call the urgent care if you have any further questions. - If your COVID-19 test is positive (detected), you will receive a phone call to discuss your results and answer any questions you might have at that time. Please make sure [employer] [employer] has your updated phone number so we can contact you. [facility] will notify the [place] [facility] of any positive results to comply with state regulations. What Happens After I Get Tested if I Develop Worsening COVID-19 Symptoms? All patients should self-quarantine at home until they receive their test results. While self-quarantining, contact your PCP or return to the urgent care if you develop any of the following: - A fever of 103 degrees F (39.4 C) or higher - A fever that lasts more than 3 days without medication - A fever that returns after being gone for more than 24 hours - Chest pain or difficulty breathing - A worsening of current symptoms For work concerns, please contact your employer's HR department. How Do I Self-Quarantine? - Stay home until 14 days after last exposure and maintain social distance (at least 6 feet) from others at all times - Avoid contact with people at higher risk for severe illness from COVID-19 - Self-monitor for symptoms: - Check temperature twice a day - Watch for fever (100.4F or higher), cough, shortness of breath, or other CDC recognized symptoms of COVID-19 If I test positive, what about those with which I have had close contact (household members, partners, close friends, etc)? Anyone with close contact (as defined above) within 48 hours prior to when the COVID-19 positive person developed symptoms should self-quarantine. This includes during the 10 day quarantine period. So, if your family is unable to isolate from you - they must wait your 10 days, plus additional quarantine as described below. If they develop symptoms - they should quarantine for the entire 14 days from their exposure to you. A negative test, while having symptoms, does not change this recommendation. If they do not develop symptoms and are no longer exposed to you: Without testing, quarantine can end after 10 days from the last exposure to a known positive COVID person. If they test negative, and their test was done at least 5 days from their last known COVID exposure, their quarantine can end after 7 days. They must continue to monitor symptoms daily for all 14 days. However, if at any time during those 14 days they develop symptoms you must self-isolate and follow up for further evaluation. If they are fully vaccinated and do not have symptoms, they are not required to quarantine. If they have symptoms, they need a negative test to resume activity. What Do I Do If I am Sick? Stay Home: If you are sick, stay home from work, school, public places, and social gatherings Social Distance: maintain 6 feet of distance from other people. Monitor Your Symptoms: If you develop fever, shortness of breath, confusion, or any respiratory symptoms, please notify your doctor immediately Cover Your Cough: Cough and sneeze into your shirt sleeve or inner elbow. Do not cough into your hands or into the air. If available, cough into a tissue and throw it into a trash can. Wash Your Hands: Wash hands often with soap and warm water and/or alcohol based hand sales engineer account manager, scrubbing your hands for at least 20 seconds. Wash your hands after sneezing or coughing, after going to the bathroom, and before eating or drinking. Wear a Mask: Wear a face mask when around others. Always wear a face mask (if able) if you have to leave your home Don't Touch: avoid touching your eyes, nose, and mouth Don't Share: avoid sharing items with others as they can spread infection Call First: If you do need to seek urgent medical care, call the facility first to let them know you are on your way Other COVID Questions? CDC - https://www.cdc.gov/coronavirus/2 019-ncov/index.html - https://www.cdc.gov/coronavirus/2 019-ncov/qn-cxt-gsh-sick/quaranti ne.html [facility] - Website: https://coronavirus.[place]/wps/ portal/gov/covid-19/home - Hotline: 615-5-QFT-OD (714-763-9780) [facility]: https://blog.[employer]/serie s/knhmb-11-opawpaoifba-toolkit/ documented in this encounter [facility] 04-24-2021 History of Present illness Narrative [facility] [address] [facility] [address] [facility] [id number] No chief complaint on file. Winifred Orosco returns to the office today for follow-up of the right knee as well as her MRI results. She reports that the knee is about the same. She has good and bad days. On the good days she feels as though she could continue on with injections and OTC pain medications. Then there are some days when she is very limited as to what she can do because of the right knee pain. She denies any new injuries or significant changes within the right knee. She has been in outpatient physical therapy for the right knee which does not make it worse but also has not given her any type of significant symptom or pain relief. She did receive an injection on February 14, 2021 which she states did provide her with some pain relief but at this point in time it has worn off. The patient's past medical history, surgical history, social history, family history, medications and allergies were reviewed with the patient today and are available in the chart for further review. Allergies Allergen Reactions Pravastatin Simvastatin Hyxqedp-Gix-Szd Reductase Inhibitors Current Outpatient Medications: aspirin 81 MG EC tablet, ASPIRIN EC 81 MG TBEC, Disp: , Rfl: diltiazem (CARDIZEM CD) 120 MG 24 hr capsule, , Disp: , Rfl: glucosamine sulfate 2KCl 1,000 mg Tab, GLUCOSAMINE HCL TABS, Disp: , Rfl: LISINOPRIL ORAL, Take by mouth ., Disp: , Rfl: omega 4-kmx-qiv-fish oil (FISH OIL) 300-1,000 mg CpDR, Take by mouth ., Disp: , Rfl: No past medical history on file. 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 Tobacco Use Smoking status: Never Smoker Smokeless tobacco: Never Used Vaping Use Vaping Use: Never used Substance and Sexual Activity Alcohol use: Yes Drug use: No Sexual activity: Yes Partners: Male control/protection: Post-menopausal Other Topics Concern Not on file Social History Narrative Not on file Social Determinants of Health Financial Resource Strain: Difficulty of Paying Living Expenses: Food Insecurity: Worried About Running Out of Food in the Last Year: Ran Out of Food in the Last Year: Transportation Needs: Lack of Transportation (Medical): Lack of Transportation (Non-Medical): Physical Activity: Days of Exercise per Week: Minutes of Exercise per Session: Stress: Feeling of Stress : Social Connections: Frequency of Communication with Friends and Family: Frequency of Social Gatherings with Friends and Family: Attends Islam Services: Active Member of Clubs or Organizations: Attends Club or Organization Meetings: Marital Status: Imaging: MRI Knee 1. Medial and lateral meniscal tears. 2. 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 3. 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 4. Joint effusion with partially ruptured lobulated and septated Sandra's cyst. Assessment/Plan: After reviewing of the patient MRI images we discussed treatment options for the right knee. She has been utilizing conservative treatment measures, oral pain medications, injections as well as outpatient physical therapy without any significant symptom or pain relief. She is not able to do everything that she would like or needs to do on a consistent basis. She does not want to have to revolve her life around what the knee will allow her or not allow her to do. 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 We did discuss surgical intervention which would consist of a right knee arthroscopy with meniscectomy and chondroplasty with Dr. Mcneal. Unfortunately the patient feels as though this is the only way she can obtain some symptom and pain relief. She would like to move forward and have the knee arthroscopy with Dr. Mcneal. I did explain that the office will contact her to schedule this. I am more than happy to see her back in the office as needed prior to her surgery. She does verbalize understanding and is in agreement with this treatment plan. documented in this encounter [facility] 04-24-2021 History of Present illness Narrative [facility] DAILY TREATMENT NOTE Today's Date 04/24/2021 Patient Name: Winifred Orosco Date of : 1960 Current Visit #: 5 Authorized Visits: 50 Case Name: Right Knee Pain History: Pre-Treatment Pain Scale: 3 Symptoms: gradually improved Functional Diagnosis: 1. Primary osteoarthritis of right knee 2. Chondromalacia patellae of right knee Clinical Information: Subjective: Pt denies change in med hx. She states her pain actually seems to be worsening. She is scheduled to follow up with orthopedics later today. Objective Knee Right Knee Range of Motion: Flexion Active: 125 Extension Active: 0 Muscle Strength: Flexion: 5 Extension: 5 Treatments: Physical Therapy Exercise Log - 04/24/21 1303 OTHER Notes Visit 5: 1:04 - 1:41 Therapeutic Exercise ([id number]) Intervention SciFit - x5 min Lvl 3 Parameters Calf stretch, HS stretch - 20 sec x3 Intervention figure 4 stretch - 20 sec x3 - NT Parameters quad sets - 5 sec x15 Intervention SLR in ER - x20 - NT Parameters sidelying clamshells - x20 - NT Intervention sidelying SLR abd - x20 - NT Parameters BOSU Lunges - x20 alt Intervention Step ups 6 - x15 fwd, lat Parameters Lat/retro ambulation - 30' x4 Intervention Shuttle - x20 50# with ball squeeze, SL 25# Parameters hip abd, add - x20 ball GTB - NT Intervention LAQ, HS curls - x15 GTB - NT Parameters Steamboats - x15 Lvl 3 PT Treatment Times Therex Total Time 39 Direct Treatment Time 39 Total Treatment Time 39 Goals: Physical Therapy Ortho Goals: MOBILITY: Patient will be able to ambulate for 30 minutes in community without difficulty in 6 weeks. MOBILITY: Patient will be able to ambulate on uneven surfaces without difficulty in 6 weeks. MOBILITY: Patient will be able to ascend/descend stairs without difficulty in 4 weeks. CHANGING MAINTAINING POSITON: Patient will be able to stand for >1 hour without difficulty in 6 weeks IMPAIRMENT: Improve pain from 5/10 to <3/10 during prolonged standing and walking in 6 weeks OTHER: Patient will increase FOTO score from 65 to at least 75 to show MDC/MCII and expected functional outcome in 6 weeks. OTHER: Patient will be able to properly demonstrate independence with HEP in 1 week. Patient Education: Diagnosis and recovery specific education and Pain Management with patient verbalized understanding. Post-Treatment Pain Scale: 2 Assessment: Patient had an expected response to treatment. Skilled Intervention demonstrated by modifications of treatment per exercise log including assessment of patient's response and safety interventions per exercise log. Progress towards goals as expected. Plan: Hold pending follow up with referring provider Az Hunter PT State License, [id number] documented in this encounter [facility] 04-10-2021 History of Present illness Narrative [facility] OUTPATIENT REHABILITATION DAILY TREATMENT NOTE Today's Date 04/10/2021 Patient Name: Winifred Orosco Date of : 1960 Current Visit #: 4 Authorized Visits: 50 Case Name: Right Knee Pain History: Pre-Treatment Pain Scale: 2 Symptoms: stabilized Functional Diagnosis: 1. Primary osteoarthritis of right knee 2. Chondromalacia patellae of right knee Clinical Information: Subjective: Pt reports knee was hurting yesterday after hiking 2 miles and wokring around house. Pt has swelling today. Objective Treatments: Physical Therapy Exercise Log - 04/10/21 0750 OTHER Notes Visit 4: 7:50 - 8:30 Therapeutic Exercise (61084) Intervention SciFit - x5 min Lvl 3 - not available Parameters Calf stretch, HS stretch - 20 sec x3 Intervention figure 4 stretch - 20 sec x3 Parameters quad sets - 5 sec x15 Intervention SLR in ER - x20 Parameters sidelying clamshells - x20 Intervention sidelying SLR abd - x20 Parameters BOSU Lunges - x20 alt Intervention Step ups - x15 fwd, lat Parameters Lat ambulation - 15' x4 Intervention Shuttle - x20 50# with ball squeeze Parameters hip abd, add - x20 ball GTB Intervention LAQ, HS curls - x15 GTB Parameters Steamboats - x15 Lvl 3 PT Treatment Times Therex Total Time 40 Direct Treatment Time 40 Total Treatment Time 40 Goals: Physical Therapy Ortho Goals: MOBILITY: Patient will be able to ambulate for 30 minutes in community without difficulty in 6 weeks. MOBILITY: Patient will be able to ambulate on uneven surfaces without difficulty in 6 weeks. MOBILITY: Patient will be able to ascend/descend stairs without difficulty in 4 weeks. CHANGING MAINTAINING POSITON: Patient will be able to stand for >1 hour without difficulty in 6 weeks IMPAIRMENT: Improve pain from 5/10 to <3/10 during prolonged standing and walking in 6 weeks OTHER: Patient will increase FOTO score from 65 to at least 75 to show MDC/MCII and expected functional outcome in 6 weeks. OTHER: Patient will be able to properly demonstrate independence with HEP in 1 week. Patient Education: Quality of movement with patient demonstrated understanding. Post-Treatment Pain Scale: 2 Assessment: Patient had an expected response to treatment. Skilled Intervention demonstrated by modifications of treatment per exercise log including increased load and safety interventions per exercise log. Progress towards goals as expected. Plan for Next Visit: Treatment Visit with focus on strengthening and VMO tracking Mikayla Roth PTA STATE LICENSE, [id number] documented in this encounter [facility] 04-05-2021 History of Present illness Narrative [facility] OUTPATIENT REHABILITATION DAILY TREATMENT NOTE Today's Date 04/05/2021 Patient Name: Winifred Orosco Date of : 1960 Current Visit #: 3 Authorized Visits: 50 Case Name: Right Knee Pain History: Pre-Treatment Pain Scale: 3 Symptoms: gradually improved Functional Diagnosis: 1. Primary osteoarthritis of right knee 2. Chondromalacia patellae of right knee Clinical Information: Subjective: Pt reports knee feeling more sore today and does not have brace on today. Pt stated wearing brace helps knee feel more stable and less pain. Pt had MRI this week waiting to hear about results. Objective Treatments: Physical Therapy Exercise Log - 04/05/21 1127 OTHER Notes Visit 3: 11:27 - 12:03 Therapeutic Exercise (80090) Intervention SciFit - x5 min Lvl 3 Parameters Calf stretch, HS stretch - 20 sec x3 Intervention figure 4 stretch - 20 sec x3 Parameters quad sets - 5 sec x15 Intervention SLR in ER - x20 Parameters sidelying clamshells - x20 Intervention sidelying SLR abd - x20 Parameters BOSU Lunges - x20 alt Intervention Step ups - x15 fwd, lat Parameters Lat ambulation - 15' x4 Intervention Shuttle - x20 50# with ball squeeze Parameters hip abd, add - x15 ball GTB Intervention LAQ, HS curls - x15 GTB Parameters Steamboats - x10 Lvl 3 PT Treatment Times Therex Total Time 35 Direct Treatment Time 35 Total Treatment Time 35 Goals: Physical Therapy Ortho Goals: MOBILITY: Patient will be able to ambulate for 30 minutes in community without difficulty in 6 weeks. MOBILITY: Patient will be able to ambulate on uneven surfaces without difficulty in 6 weeks. MOBILITY: Patient will be able to ascend/descend stairs without difficulty in 4 weeks. CHANGING MAINTAINING POSITON: Patient will be able to stand for >1 hour without difficulty in 6 weeks IMPAIRMENT: Improve pain from 5/10 to <3/10 during prolonged standing and walking in 6 weeks OTHER: Patient will increase FOTO score from 65 to at least 75 to show MDC/MCII and expected functional outcome in 6 weeks. OTHER: Patient will be able to properly demonstrate independence with HEP in 1 week. Patient Education: Quality of movement with patient demonstrated understanding. Post-Treatment Pain Scale: 2 Assessment: Patient had an expected response to treatment. Skilled Intervention demonstrated by modifications of treatment per exercise log including increased load and safety interventions per exercise log. Progress towards goals as expected. Plan for Next Visit: Treatment Visit with focus on strengthening and patellar tracking Mikayla Roth PTA STATE LICENSE, [id number] documented in this encounter [facility] 02-27-2021 History of Present illness Narrative [facility] OUTPATIENT REHABILITATION Evaluation Today's Date 02/27/2021 Patient Name: Winifred Orosco Date of : 1960 Case Name: Right Knee Pain Functional Diagnosis: 1. Primary osteoarthritis of right knee 2. Chondromalacia patellae of right knee 3. Chondromalacia of patellofemoral joint, right Clinical Information: Subjective Referring Diagnosis: Right Knee OA Follow Up With Physician: none scheduled. History of Present Illness Per medical records dated: 02/14/21 Contemporary Medical History: X-Ray FINDINGS: There is no acute displaced fracture or dislocation identified bilaterally. There is lliy-pu-[id number] tricompartmental osteoarthritis involving the right knee, most significant the medial compartment. No joint effusion or layering lipohemarthrosis. There is jqvi-[id number] bicompartmental osteoarthritis involving the left knee. Subjective History: Pt reports c/o chronic right knee pain worsening over time. She reports no injury. She has received multiple Cortisone injections, most recently 02/14 but they seem to be less and less effective. She was also provided a hinged knee brace which seems to be helping with the pain throughout the day. She reports occasional numbness and heaviness with prolonged standing and walking. Previous Imaging: X-ray Pain Scale: Pain location: knee Average Pain: 1/10 Pain at highest: 5/10 Aggravating factors: prolonged standing and walking, stairs Easing factors: rest, elevation, ice, Aleve 24 Hour Symptom Behavior Morning Pain: gradual End of day pain: worse Personal Goals: Decrease pain and improve stability. She is hoping to avoid surgery. 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 Sleep Assessment Sleep disturbance: no Sleep Disturbance Red Flags: None Comments: Barriers to Care: None Islam, social, or cultural considerations to be made aware of before starting treatment: No Knee Right Knee Tenderness: medial joint line Range of Motion: Flexion Active: 128 Extension Active: 0 Muscle Strength: Flexion: 5 Extension: 5 Special Tests Jennifer (Medial): Positive Jennifer (Lateral): Negative Stress Test (Varus): Negative Stress Test (Valgus): Negative Patellar Femoral Grind: Negative Pt presents with increased genu valgum but has no further laxity and denies pain with stress testing FOTO: 65 Ankle/Foot Right Ankle/Foot Right Ankle/Foot WFL Treatments: Physical Therapy Exercise Log - 02/27/21 0905 OTHER Notes Visit 1: 8:40 - 9:10 Therapeutic Exercise (76329) Intervention provided written HEP handouts consisting of the following: Parameters HS stretch Intervention figure 4 stretch Parameters quad sets Intervention SLR in ER Parameters sidelying clamshells Intervention sidelying SLR abd PT Treatment Times Total Treatment Time 30 Goals: Physical Therapy Ortho Goals: MOBILITY: Patient will be able to ambulate for 30 minutes in community without difficulty in 6 weeks. MOBILITY: Patient will be able to ambulate on uneven surfaces without difficulty in 6 weeks. MOBILITY: Patient will be able to ascend/descend stairs without difficulty in 4 weeks. CHANGING MAINTAINING POSITON: Patient will be able to stand for >1 hour without difficulty in 6 weeks IMPAIRMENT: Improve pain from 5/10 to <3/10 during prolonged standing and walking in 6 weeks OTHER: Patient will increase FOTO score from 65 to at least 75 to show MDC/MCII and expected functional outcome in 6 weeks. OTHER: Patient will be able to properly demonstrate independence with HEP in 1 week. CPT Code 74139 Low 73898 Moderate 97847 High History 0 1-2 3+ Comorbidities: OA, Personal factors: chronicity or severity of the current condition Examination of body systems (elements of body structures & functions, activity limitations, and/or participation restrictions) 1-2 elements 3+ elements 4+ elements See below clinical impression Clinical Presentation Stable Evolving Unstable As evidenced by reproduction of or changes in symptoms with certain movements and pt report of overall worsening of symtpoms over time Decision Making Low (FOTO >/= 69) Moderate (FOTO 34 - 68) High (FOTO </= 33) FOTO score= 65 Pt is a 60 y.o. female who presents to PT services with c/o right knee pain. Upon assessment, pt has been found with the following impairments: decreased strength, impaired dynamic balance, antalgic gait, swelling and pain. 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 The pt would benefit from skilled PT services focused on the above listed impairments and limitations in order to safely progress pt to their desired level of function. Pt to be discharged from OP PT services if/when goals are met, if they fail to make progress with conservative management in PT, if their level of progress plateaus, or if they do not maintain compliance with attendance or HEP. At this time, it is my clinical judgment that services are medically necessary. Plan of Care Frequency of Visits: 2 times per week Duration: 6 weeks Interventions: Therapeutic Exercise, Neuromuscular Re-Education, Manual Therapy, Gait Training, Hot/Cold Pack and Vasopneumatic Rehab Potential: good Suicide Screen Signs and Symptoms of Abuse/Neglect: No Actions Taken: No Suicide Risk: Does the patient feel like ending their life today?No Actions Taken: No Patient Education Provided Pt was educated on the benefits of therapy and importance of compliance with sessions and HEP for rehabilitation. Pt was also educated on treatment diagnosis, POC, and frequency/duration of treatment. Clinical Impression Pt would benefit from PT interventions for possible patellofemoral pain syndrome and arthritis of the knee to address impairments in strength and stability as well as swelling and pain control. Az Hunter PT State License, [id number] documented in this encounter [facility] 02-14-2021 History of Present illness Narrative Associated Order(s): LG Jt Injection/Arthrocentesis: R knee Post-Procedure Diagnose(s): Primary osteoarthritis of right knee; Chondromalacia of patellofemoral joint, right LG Jt Injection/Arthrocentesis: R knee Performed by: Akhil Dupree CNP Authorized by: Akhil Dupree CNP CPT 82704 - Large Joint Arthrocentesis: Consent given by: Patient Time out: Immediately prior to the procedure a time out was called Physician or proceduralist has discussed critical or nonroutine steps, procedure duration and anticipated blood loss: Yes Supporting Documentation: Indications: Pain, joint swelling and diagnostic evaluation Procedure Details: Location: Knee Site: R knee Prep: patient was prepped and draped in usual sterile fashion Needle size: 22 G Approach: Anterolateral Medications: 40 mg triamcinolone acetonide 40 mg/mL Anesthetic used: Lidocaine 1% Anesthetic amount (mL): 2 Patient tolerance: Patient tolerated the procedure well with no immediate complications Winifred Orosco 1960 CC: 60 y.o. is a she with right knee pain. Chief Complaint Patient presents with Right Knee - Pain . HPI: Knee Pain: Patient presents today with right knee pain. 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 She denies any specific injury to the knee. She did see her pcp who has injected her with cortisone. The first injection in the fall provided her with great relief but unfortunately the one at the end of Oct, didn't give her but a month of relief. She is having increased swelling which she does take Aleve for as well as uses ice which do calm the knee down but it just continues to worsen. This swelling she has today started in Nov and really hasn't gone down since. She denies any instability in the knee but does have difficulty with up and down stairs. There is popping and cracking in the knee but not catching or locking up. PMH: Allergies Allergen Reactions Pravastatin Simvastatin Qmbzrcz-Txv-Rfs Reductase Inhibitors Current Outpatient Medications: aspirin 81 MG EC tablet, ASPIRIN EC 81 MG TBEC, Disp: , Rfl: diltiazem (CARDIZEM CD) 120 MG 24 hr capsule, , Disp: , Rfl: glucosamine sulfate 2KCl 1,000 mg Tab, GLUCOSAMINE HCL TABS, Disp: , Rfl: LISINOPRIL ORAL, Take by mouth ., Disp: , Rfl: omega 1-mqm-pyl-fish oil (FISH OIL) 300-1,000 mg CpDR, Take by mouth ., Disp: , Rfl: History reviewed. No pertinent past medical history. 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 Social Needs Financial resource strain: Not on file Food insecurity Worry: Not on file Inability: Not on file Transportation needs Medical: Not on file Non-medical: Not on file Tobacco Use Smoking status: Never Smoker Smokeless tobacco: Never Used Substance and Sexual Activity Alcohol use: Yes Frequency: 2-3 times a week Drinks per session: 1 or 2 Drug use: No Sexual activity: Yes Partners: Male control/protection: Post-menopausal Lifestyle Physical activity Days per week: Not on file Minutes per session: Not on file Stress: Not on file Relationships Social connections Talks on phone: Not on file Gets together: Not on file Attends anabaptist service: Not on file Active member of club or organization: Not on file Attends meetings of clubs or organizations: Not on file Relationship status: Not on file Other Topics Concern Not on file Social History Narrative Not on file The patient's past medical history, surgical history, social history, family history, medications and allergies were reviewed with the patient today and are available in the chart for further review. ROS: Review of Systems Constitutional: Negative for activity change and fatigue. HENT: Negative for congestion, hearing loss and trouble swallowing. Eyes: Negative for visual disturbance. Respiratory: Negative for chest tightness and shortness of breath. Cardiovascular: Negative for chest pain and palpitations. Gastrointestinal: Negative for abdominal pain, diarrhea, nausea and vomiting. Endocrine: Negative for polydipsia, polyphagia and polyuria. Genitourinary: Negative for decreased urine volume, difficulty urinating and hematuria. Musculoskeletal: Positive for arthralgias and joint swelling. Negative for myalgias. Skin: Negative for color change, rash and wound. Allergic/Immunologic: Negative for immunocompromised state. Neurological: Negative for dizziness, weakness, light-headedness and numbness. Hematological: Does not bruise/bleed easily. Psychiatric/Behavioral: Negative for confusion and sleep disturbance. The patient is not nervous/anxious. PE: Physical Exam Constitutional: She is oriented to person, place, and time. She appears well-developed and well-nourished. HENT: Head: Normocephalic. Eyes: Pupils are equal, round, and reactive to light. Neck: Normal range of motion. Neck supple. Cardiovascular: Normal rate and regular rhythm. Pulmonary/Chest: Effort normal and breath sounds normal. Abdominal: Soft. Bowel sounds are normal. Musculoskeletal: General: Tenderness and edema present. Right knee: She exhibits decreased range of motion and swelling. She exhibits no effusion. Tenderness found. Medial joint line and lateral joint line tenderness noted. Neurological: She is alert and oriented to person, place, and time. Skin: Skin is warm and dry. ORTHO: Right Knee Exam Tenderness The patient is experiencing tenderness in the lateral joint line, medial joint line and patella. Range of Motion Extension: normal Flexion: 120 (Pain with PROM) abnormal Tests Jennifer: Medial - negative Lateral - negative Varus: negative Valgus: negative Manny: Anterior - negative Drawer: Anterior - negative Posterior - negative Other Erythema: absent Scars: absent Sensation: normal Pulse: present Swelling: mild Effusion: no effusion present Imaging:R Knee There is puih-hq-zuulnwit tricompartmental osteoarthritis involving the right knee, most significant the medial compartment Assessment/Plan: After examination and reviewing of the patient x-ray images, we discussed treatment options. I did offer her another cortisone injection which she gladly accepted. I did this without complications and she tolerated this well. Given that she has been utilizing injections and oral otc pain medications with no improvement and worsening symptoms, I am going to start her in outpatient physical therapy and get a MRI for further diagnostic evaluation. I will see her back for her results. She verbalizes understanding and is in agreement with the treatment plan. Diagnosis: Problem List Items Addressed This Visit None Follow Up: No follow-ups on file. Akhil Dupree CNP documented in this encounter [facility] Primary osteoarthritis of right knee Chondromalacia patellae of right knee Chondromalacia of patellofemoral joint, right [facility] Diagnosis Primary osteoarthritis of right knee- Primary Chondromalacia patellae of right knee [facility] Diagnosis Primary osteoarthritis of right knee- Primary Chondromalacia patellae of right knee [facility] Diagnosis Primary osteoarthritis of right knee- Primary Chondromalacia patellae of right knee [facility] Diagnosis Acute lateral meniscus tear of right knee, initial encounter- Primary Acute medial meniscus tear of right knee, initial encounter [facility] Diagnosis Acute medial meniscus tear of right knee, initial encounter- Primary Chondromalacia of patellofemoral joint, right Chondromalacia patellae of right knee Acute medial meniscus tear of right knee [facility] Diagnosis Chondromalacia patellae of right knee Acute medial meniscus tear of right knee Sore throat- Primary Acute pharyngitis Acute medial meniscus tear of right knee, initial encounter Chondromalacia of patellofemoral joint, right [facility] Diagnosis Chondromalacia patellae of right knee Acute medial meniscus tear of right knee Acute medial meniscus tear of right knee, subsequent encounter- Primary Chondromalacia of patellofemoral joint, right Acute medial meniscus tear of right knee, initial encounter Chondromalacia of patellofemoral joint, right [facility] Diagnosis Acute medial meniscus tear of right knee, initial encounter- Primary Chondromalacia of patellofemoral joint, right Chondromalacia patellae of right knee Acute medial meniscus tear of right knee Acute medial meniscus tear of right knee, initial encounter Chondromalacia of patellofemoral joint, right [facility] Diagnosis Acute medial meniscus tear of right knee, subsequent encounter- Primary S/P right knee arthroscopy [facility] Diagnosis S/P arthroscopy of right knee- Primary Other postprocedural status documented in this encounter [facility] Assessments Diagnosis Postartificial menopausal sy ndrome - Primary Symptomatic states associated with artificial menopause Diagnosis Breast nodule Other (abnormal) findings on radiological examination of breast Diagnosis Breast nodule Other (abnormal) findings on radiological examination of breast Diagnosis Breast nodule Other (abnormal) findings on radiological examination of breast Diagnosis Visit for screening mammogram Diagnosis Post-menopause bleeding Postmenopausal bleeding Fibroids Leiomyoma of uterus, unspecified Advance Directives No Advanced Directives Records FoundDocuments on File Type Date Recorded 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 Advance Directives and Livin g Will 08/21/2020 3:39 PM Documents on File Type Date Recorded 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 Advance Directives and Livin g Will 08/21/2020 3:39 PM Documents on File Type Date Recorded 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 Advance Directives and Livin g Will 05/26/2019 3:39 PM Documents on File Type Date Recorded 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 Advance Directives and Livin g Will 04/02/2021 5:27 PM Documents on File Type Date Recorded 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 Advance Directives and Livin g Will 07/05/2021 5:30 AM Documents on File Type Date Recorded 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 Advance Directives and Livin g Will 07/09/2021 5:30 AM Summary Purpose Family History No Family History Records FoundNo Family History Records FoundNo Family History Records FoundNo Family History Records FoundNo Family History Records Found Reason for Referral Status Reason Specialty Diagnoses / Procedures Referre d By Contact Referred To Contact Closed Radiology Diagnoses Visit for screening mammogram Procedures Mammography Screening West Bilateral Mammography Screening Bilateral Nancie Clark MD [address] [place] [address] [place] [address] Status Reason Specialty Diagnoses / Procedures Re ferred By Contact Referred To Contact Closed Central Scheduling Diagnoses Post-menopause bleeding Fibroids Procedures US Pelvic Transabdominal and Transvaginal Nancie Clark MD [address] [place] [address] Central Scheduling [address] [place] [address] Status Reason Specialty Diagnoses / Procedures Referred By Contact Referred To Contact Authorized Rehabilitation Diagnoses Primary osteoarthritis of right knee Chondromalacia of patellofemoral joint, right Akhil Dupree, BERNY [address] [place] [address] [place] [address] [address] [place] [address] Status Reason Specialty Diagnoses / Procedures Re ferred By Contact Referred To Contact New Request Radiology Diagnoses Primary osteoarthritis of right knee Chondromalacia of patellofemoral joint, right Procedures MR Knee Right Without Contrast Akhil Dupree, BERNY [address] [place] [address] Specialty Diagnoses / Procedures Referred By Contpanda tomas Referred To Contact Cardiology Diagnoses Acute medial meniscus tear of right knee, subsequent encounter S/P right knee arthroscopy Procedures Ultrasound duplex venous leg right Kanu Mcneal MD [address] [place] [address] Referral ID Status Reason Start Date Expiration Date V isits Requested Visits Authorized [id number] New Request 07/10/2021 07/10/2022 1 1 Additional Source Comments Reason for Visit (unrecogniz ed section and content) Status Reason Specialty Diagnoses / Procedures Referre d By Contact Referred To Contact Closed Radiology Diagnoses Visit for screening mammogram Procedures Mammography Screening West Bilateral Mammography Screening Bilateral Nancie Clark MD [address] [facility] [address] [place] [address] Status Reason Specialty Diagnoses / Procedures Re ferred By Contact Referred To Contact Closed Central Scheduling Diagnoses Post-menopause bleeding Fibroids Procedures US Pelvic Transabdominal and Transvaginal Nancie Clark MD [address] [facility] [address] [place] [id number] Central Scheduling [address] [place] [address] Status Reason Specialty Diagnoses / Procedures Referred By Contact Referred To Contact Pending Review Radiology Diagnoses Breast nodule Procedures Mammography Diagnostic West Bilateral Mammography Diagnostic Bilateral Kylah Ch CNP [address] [facility] [address] [place] [address] Central Scheduling [address] [place] [address] Reason Comments Pain Reason Comments Physical Therapy Status Reason Specialty Diagnoses / Procedures Referred By Contact Referred To Contact Authorized Rehabilitation Diagnoses Primary osteoarthritis of right knee Chondromalacia of patellofemoral joint, right Akhil Dupree, BERNY [address] [place] [address] [facility] [place] [address] [place] [address] Reason Comments Results Reason Comments Covid-19 Screening headache, sore throa t, x this morning. fully vaccinated Reason Comments Pre-op Exam right knee Reason Comments Suture / Staple Removal Wound Check INFORMATION SOURCE (unrecogn ized section and content) DATE CREATED AUTHOR AUTHOR'S ORGANIZ ATION 06/16/2021 [facility] DATE CREATED AUTHOR AUTHOR'S ORGANIZ ATION 07/20/2021 [facility] DATE CREATED AUTHOR AUTHOR'S ORGANIZ ATION 08/23/2021 [facility] DATE CREATED AUTHOR AUTHOR'S ORGANIZ ATION 11/05/2022 [facility] Care Teams (unrecognized sec tion and content) Threader Relationship Specialty Start Date End Date Gabe Weibnerg MD [address] [facility] [place] [address] PCP - WADE Attributed Provider - [facility] 01/10/19 Michell Tirado MD [address] [facility] [place] [address] PCP - General Internal Medicine 05/26/19 Britta Weldon MD [address] [facility] 2 [place] [address] 03/25/11 Nancie Clark MD [address] [facility] [address] [place] [address] Operations Vocational Instructor Obstetrics/Gynecolo gy 04/06/18 Nancie Clark MD [address] [facility] [address] [place] [address] WADE Attributed Provider - ELEMENTARY ELL TEACHER Obstetrics/Gynecolo gy 09/01/17 Robert Hendricks MD [address] [place] [address] WADE Attributed Provider - Family Medicine Family Medicine 01/07/17 Threader Relationship Specialty Start Date End Date Gabe Weinberg MD [address] [place] [address] PCP - WADE Attributed Provider - [facility] 01/10/19 Michell Tirado MD [address] [facility] [place] [address] PCP - General Internal Medicine 05/26/19 Britta Weldon MD [address] [place] [address] 2 [place] [address] 03/25/11 Nancie Clark MD [address] [facility] [address] [place] [address] Operations Vocational Instructor Obstetrics/Gynecolo gy 04/06/18 Nancie Clark MD [address] [place] [address] [address] [place] [address] WADE Attributed Provider - ELEMENTARY ELL TEACHER Obstetrics/Gynecolo gy 09/01/17 Robert Hendricks [place] [address] WADE Attributed Provider - Family Medicine Family Medicine 01/07/17 Threader Relationship Specialty Start Date End Date aGbe Weinberg MD [address] [place] [address] PCP - WADE Attributed Provider - [facility] 01/10/19 Michell Tirado MD [address] [facility] [place], [place] [address] PCP - General Internal Medicine 05/26/19 Britta Weldon MD [address] [place] [address] [address] [place] [address] 03/25/11 Nancie Clark MD [address] [facility] [address] [place] [address] Operations Vocational Instructor Obstetrics/Gynecolo gy 04/06/18 [place] [address] [place] [address] Rd [facility] [address] [place] [address] WADE Attributed Provider - ELEMENTARY ELL TEACHER Obstetrics/Gynecolo gy 09/01/17 Robert Hendricks MD [address] [place] [address] WADE Attributed Provider - Family Medicine Family Medicine 01/07/17 Threader Relationship Specialty Start Date End Date Gabe Weinberg MD [address] [facility] [place] [address] PCP - WADE Attributed Provider - [facility] 01/10/19 Michell Tirado MD [address] [facility] [place] [address] PCP - General Internal Medicine 05/26/19 Britta Weldon MD [address] [facility] 2 [place] [address] 03/25/11 Nancie Clark MD [address] [address] Operations Vocational Instructor Obstetrics/Gynecolo gy 04/06/18 Nancie Clark MD [address] [facility] [address] [place] [address] WADE Attributed Provider - ELEMENTARY ELL TEACHER Obstetrics/Gynecolo gy 09/01/17 Robert Hendricks MD [address] [place] [address] WADE Cody Provider - [facility] Family Medicine 01/07/17 Source Comments (unrecognize d section and content) In the event this informatio n is protected by the Federal Confidentiality of Alcohol and Drug Abuse Patient Records regulations: The Federal rules restrict any use of the information to criminally investigate or prosecute any alcohol or drug abuse patient.[facility] the event this information is protected by the Federal Confidentiality of Alcohol and Drug Abuse Patient Records regulations: The Federal rules restrict any use of the information to criminally investigate or prosecute any alcohol or drug abuse patient.[facility] the event this information is protected by the Federal Confidentiality of Alcohol and Drug Abuse Patient Records regulations: The Federal rules restrict any use of the information to criminally investigate or prosecute any alcohol or drug abuse patient.[facility] FOR RECORDS PERTAINING TO PATIENTS WHO ARE OR HAVE BEEN ENROLLED IN A CHEMICAL DEPENDENCY/SUBSTANCEABUSE PROGRAM, SOME INFORMATION MAY BE OMITTED. This clinical summary was aggregated from multiple sources. Caution should be exercised in using it in the provision of clinical care. This summary normalizes information from multiple sources, and as a consequence, information in this document may materially change the coding, format and clinical context of patient data. In addition, data may be omitted in some cases. CLINICAL DECISIONS SHOULD BE BASED ON THE PRIMARY CLINICAL RECORDS. [facility] [employer] [facility]. provides no warranty or guarantee of the accuracy or completeness of information in this document.
[2023-11-20 10:55] LABS: AST(SGOT) 20 U/L (15-37); Alanine Aminotransfer ALT/SGPT 27 U/L (13-56); Albumin, Serum 4.1 g/dL (3.2-5.0); Alkaline Phosphatase 95 U/L (45-117); Bilirubin, Direct 0.18 mg/dL (0.00-0.30); Cholesterol 258 mg/dL (200); Globulin 3.2 g/dL (2.2-4.2); High Density Lipoprotein 83 mg/dL; Protein, Total 7.3 g/dL (6.4-8.2); Triglycerides 81 mg/dL; Very Low Density Lipoprotein 16 mg/dL (5-40)
== END | disposition home or self-care (01) ==
LOC: MTLAB 07:03
PROVIDERS: PCP Family Medicine; Referring Provider Nurse Practitioner Gerontology; Visit Provider Nurse Practitioner Gerontology
DX: E78.5 Hyperlipidemia, unspecified (principal)
CPT/HCPCS: 36415; 80061; 80076

== ENCOUNTER → 2024-01-01 | Outpatient (CLI) | payer BC, SELFPAY ==
--- OUTSIDE RECORDS SUMMARY | 2024-01-01 07:09 | XMS RPT_ITS | CCD ---
Author Name Unknown Address [address] [place] [address] Organization [facility] Care Team Providers Care 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 Name Role Phone Britta Weldon Unavailable Swathi Wild Unavailable Unavailable Unavailable Unavailable Britta Weldon Unavailable Nancie Clark Unavailable Gabe Weinberg Unavailable Nancie Clark Primary Care Provider KYLAH CH Attending UnavailKYLAH Choi Referring UnavailNANCIE Bah Primary Care Unavailable KYLAH CH Attending UnavailKYLAH Choi Referring UnavailNANCIE Bah Primary Care Unavailable NANCIE CLARK Attending Unavailable NANCIE CLARK Referring Unavailable MICHELL TIRADO Primary Care Unavailable Britta Weldon Unavailable Nancie Clark Unavailable Gabe Weinberg Unavailable Michell Tirado Primary Care Provider Unavailab Nancie Olsen Unavailable Robert Hendricks Unavailable [phone] Britta Weldon Unavailable Gabe Weinberg Unavailable [phone] Michell Tirado Primary Care Provider Unavailab Britta Dong MD Unavailable Amber WHELAN, Kristina Unavailable Gabe Weinberg MD Unavailable Michell Tirado MD E Primary Care Provider Unavai js Clark MD, Kristina Unavailable Robert Hendricks MD Unavailable Shiraz WHELAN, Britta M Unavailable Amber WHELAN, Kristina Unavailable [phone] Lenard WHELAN, Gabe Conway Unavailable Michell Tirado MD Primary Care Provider Amber WHELAN, Kristina Unavailable Robert Hendricks MD Unavailable Amber WHELAN, Kristina Unavailable [phone] Amber WHELAN, Kristina Unavailable [phone] Lenard WHELAN, Gabe Conway Unavailable [phone] Amber WHELAN, Kristina Unavailable Robert Hendricks MD Unavailable [phone] HERMAN TAYLOR Attending Unavailable MIEDEL, MICHELL E [...] (statins) (20 sources) Pravastatin Drug Allergy [address] [facility] (17 sources) Hmg-Coa Reductase Inhibitors (Statins); Translations: [ZLFUULI-RIU-WXJ REDUCTASE INHIBITORS] Propensity to adverse reactions to drug [address] [facility] (13 sources) Pravastatin; Translations: [Unknown] Drug Allergy 9 [facility] (12 sources) Simvastatin; Translations: [SIMVASTATIN] Drug Allergy [address] [facility] Medications Current Medications Medication Drug [...] MCG/ACT SUSP Take as directed MOMETASONE FUROATE [id number] Jazlyn Mello RN 12-28-2015 [facility] [phone] 0 12/28/2015 02/14/2021 Discontinued (Discontinued by another [...] 185.4 cm Kanu Mcneal MD Work Phone: [facility] 06-21-2021 14:14-0400 Body mass index (BMI) [Ratio] 31.66 kg/m2 Kanu Mcneal MD Work Phone: [facility] 06-21-2021 14:14-0400 Body weight 108.86 kg Kanu Mcneal MD Work Phone: [facility] 06-21-2021 14:14-0400 Diastolic blood pressure 85 mm[Hg] Kanu Mcneal MD Work Phone: [facility] 06-21-2021 14:14-0400 Heart rate 81 /min Kanu Mcneal MD Work Phone: [facility] 06-21-2021 14:14-0400 Systolic blood pressure 129 mm[Hg] Kanu Mcneal MD Work Phone: [facility] 06-15-2021 18:29-0400 Diastolic blood pressure 84 mm[Hg] Herman Taylor MD Work Phone: [facility] 06-15-2021 18:29-0400 Systolic blood pressure 130 mm[Hg] Herman Taylor MD Work Phone: [facility] 06-15-2021 18:26-0400 Body height 185.4 cm Herman Taylor MD Work Phone: [facility] 06-15-2021 18:26-0400 Body mass index (BMI) [Ratio] 31.66 kg/m2 Herman Taylor MD Work Phone: [facility] 06-15-2021 18:26-0400 Body temperature 98.4 [degF] Herman Taylor MD Work Phone: [facility] 06-15-2021 18:26-0400 Body weight 108.86 kg Herman Taylor MD Work Phone: [facility] 06-15-2021 18:26-0400 Heart rate 67 /min Herman Taylor MD Work Phone: [facility] 06-15-2021 18:26-0400 Respiratory rate 18 /min Herman Taylor MD Work Phone: [facility] 06-15-2021 18:26-0400 SaO2% (BldA) [Mass fraction] 95 % Herman Taylor MD Work Phone: [facility] 02-14-2021 08:02-0400 Body height 182.9 cm Akhil Dupree CNP Work Phone: [facility] 02-14-2021 08:02-0400 Body mass index (BMI) [Ratio] 32.55 kg/m2 Akhil Dupree CNP Work Phone: [facility] 02-14-2021 08:02-0400 Body weight 108.86 kg Akhil Dupree CNP Work Phone: [facility] Encounters Encounter Date Encounter Type Care Provider Facility Start: 10-31-2022 Documentation procedure Mammog yosef Coordinator [facility] Start: 10-31-2022 Letter encounter Mammography Coordinator [facility] Department Start: 10-24-2022 Documentation procedure [facility] Start: 10-24-2022 Letter encounter Mammography Coordinator [facility] Department Start: 10-21-2022 Documentation procedure Mammog yosef Coordinator [facility] Start: 10-21-2022 Letter encounter Mammography Coordinator [facility] Department Start: 10-17-2022 End: 10-17-2022 ambulatory Facility:[facility] Start: 08-22-2021 End: 08-23-2021 ambulatory [facility] Start: 07-19-2021 End: 07-19-2021 ambulatory KANU MCNEAL [facility] Start: 07-19-2021 End: 07-19-2021 Postop follow up visit related to original px Kanu Mcneal MD Work Phone: [facility] Procedures Date Procedure Procedure Detail Performing Clinician Start: 10-17-2022 Mammography Mammograph y Coordinator Start: 02-14-2021 Arthrocentesis aspir &/inj major jt/bursa w/o Akhil Dupree [facility] Work Phone: Start: 08-24-2020 Microscopic observat ion [Identifier] in Cervix by Cyto stain [facility] Start: 08-21-2020 MG Breast - bilatera l screening Nancie Clark Work Phone: Start: 08-21-2020 Mammography Covid Oes Pcp c Start: 02-02-2019 Us breast uni real t imrna with image limited Kylah Ch Work Phone: Start: 02-02-2019 MG Breast - bilatera l diagnostic Kylah Ch Work Phone: Start: 02-02-2019 Mammography Nancie Quinn s Start: 04-06-2018 Microscopic observat ion [Identifier] in Cervix by Cyto stain Kylah Ch Start: 12-23-2017 Mammography Kylah Jerson schulte Plan of Treatment Date Care Activity Detail Author Start: 10-17-2023 Mammography MAMMOGRAM [facility] Start: 08-24-2023 Screening for malign ant neoplasm of cervix Pap Smear [facility] Start: 10-26-2022 DEPRESSION ASSESSMENT DEPRESSION ASS ESSMENT [facility] Start: 08-24-2021 History and physical examination, annual for health maintenance Wellness Visit [facility] Start: 08-21-2021 Screening for malign ant neoplasm of breast Mammogram [facility] Start: 08-21-2021 Screening mammography Mammogram [facility] Start: 07-19-2021 End: 07-19-2021 Follow-up encounter 07/19/2021 Follow-Up Sports Medicine Kanu Mcneal MD [address] [place] [address] [facility] Start: 07-10-2021 End: 09-08-2022 Ultrasound duplex venous leg right Ultrasound duplex venous leg right Vascular Ultrasound Routine Acute medial meniscus tear of right knee, subsequent encounter S/P right knee arthroscopy Expected: 07/10/2021, Expires: 09/08/[address] [facility] Work Phone: Immunizations Immunization Date Immunization Notes Care Provider Shelby gómez 12-08-2020 Moderna SARS-CoV-2 Vaccination Shana Guerra [facility] 11-09-2020 Moderna SARS-CoV-2 Vaccination Covid Oes Pcp c [facility] Payers Date Payer Category Payer Unknown [employer] PPO OOS [id number] 2021-Present [phone] [address] [place] [address] PPO [id number] 2021 Unknown [id number] 2020 Unknown [id number] [id number] 2020 Unknown [id number] 2014 Unknown xxxxxxxxx 2.16.840.1.456352.3.249.13 2014 Unknown [id number] 2.16.840.1.070943.3.249.13 2014 Unknown [id number] 1.2.840.037536.1.13.385.2.7.3.6 [id number] 1962 Unknown [id number] 2.16.840.1.805915.3.579.2.900 1962 Unknown [id number] 2.16.840.1.214515.3.579.2.900 1962 Unknown [id number] 2.16.840.1.916187.3.579.2.900 1962 Unknown [id number] 2.16.840.1.035283.3.579.2.903 1962 Unknown [id number] 2.16.840.1.580930.3.579.2.90 1962 Unknown [id number] 2.16.840.1.422933.3.579.2.903 1962 Unknown [id number] 2.16.840.1.964259.3.579.2.903 1962 Unknown [id number] 2.16.840.1.173489.3.579.2.903 1962 Unknown [id number] 2.16.840.1.322924.3.579.2.903 1962 Unknown [id number] 2.16.840.1.617842.3.579.2.903 1962 Unknown [id number] 2.16.840.1.696675.3.579.2.903 1962 Unknown [id number] 2.16.840.1.695863.3.579.2.903 1962 Unknown [id number] 2.16.840.1.276951.3.579.2.903 1962 Unknown [id number] 2.16.840.1.801184.3.579.2.903 1962 Unknown [id number] 2.16.840.1.757383.3.579.2.903 1962 Unknown [id number] 2.16.840.1.387227.3.579.2.903 1962 Unknown [id number] 2.16.840.1.781004.3.579.2.903 1962 Unknown [id number] 2.16.840.1.683611.3.579.2.903 1962 Unknown [id number] 2.16.840.1.105141.3.579.2.903 Social History Date Type Detail Facility Start: 01-07-2017 End: 06-22-2017 Tobacco smoking status NHIS Never smoker [facility] Start: 1960 Sex Assigned At Not on file [facility] Work Phone: Start: 01-07-2017 Alcohol Comment socially [facility] Start: 08-21-2020 End: 06-15-2021 Tobacco use and exposure Never used [facility] Start: 08-21-2020 End: 07-20-2021 Alcohol intake Current drinker of alcohol (finding) [facility] Exposure to SARS-CoV -2 (event) Not sure [facility] Start: 08-24-2020 End: 03-06-2021 History SDOH Alcohol Frequency [address] [facility] Start: 08-24-2020 End: 03-06-2021 History SDOH Alcohol Std Drinks [address] [facility] Exposure to SARS-CoV -2 (event) Yes [facility] Start: 06-15-2021 Tobacco smoking stat [facility] Ex-smoker [facility] History of tobacco use Cigarette Smoker [facility] Start: 07-08-2021 End: 07-20-2021 Alcohol intake [facility] Tobacco smoking stat [facility] Tobacco smoking consumption unknown [facility] Clinical Notes 02-14-2021 to 10-31-2022 Letter - Mammography Coordinator - 10/31/2022 4:07 PM ESTLetter - Mammography Coordinator - 10/24/2022 4:13 PM ESTLetter - Mammography Coordinator - 10/21/2022 8:04 AM ESTPatient Instructions Note Date & Type Note Facility 10-31-2022 Miscellaneous Notes November 03, 2022 PID: [id number] Winifred Rosa [address] [place] [address] Dear Ms. Orosco, Your prior imaging studies [...] report will be kept on file at [facility] as part of your permanent medical record and are available for your continuing care. Thank you for allowing us to help in meeting your health care needs. Sincerely, Dr. Leonardo Interpreting Radiologist [facility] (Normal Old Films compared) documented in this encounter [facility] 10-24-2022 Miscellaneous Notes October 28, 2022 PID: [id number] Winifred Orosco [address] [place] [address] Dear Ms. Orosco, Your prior imaging studies [...] report will be kept on file at [facility] as part of your permanent medical record and are available for your continuing care. Thank you for allowing us to help in meeting your health care needs. Sincerely, Dr. Leonardo Interpreting Radiologist [facility] (Normal Old Films compared) documented in this encounter [facility] 10-21-2022 Miscellaneous Notes October 21, 2022 PID: [id number] Winifred Orosco [address] [facility] [place] [address] Dear Ms. Orosco, Your breast imaging exam 10/17/2022 showed a possible finding that may require additional imaging studies for a complete evaluation. However, we recognize you have prior imaging studies at facilities other than [facility], and would like the opportunity to compare [...] and reports are kept on file at [facility] as part of your permanent medical record, and are available for your continuing care. If you have any questions or concerns, please call [phone]. Thank you for choosing [facility] for your imaging needs. Sincerely, Dr. Leonardo Interpreting Radiologist [facility] (Old Films) documented in this encounter [facility] 10-17-2022 Note HNO ID: [id number] Author: RT Barrett(R) Service: ? Author Type: [...] RT Barrett(R) October 17, 2022 1:19 PM [facility] 07-20-2021 History of Present illness Narrative Winifred [...] a p.r.n. basis. documented in this encounter [facility] 06-22-2021 History of Present illness [...] vaccinated for COVID-19. documented in this encounter [facility] 06-15-2021 History of Present illness Narrative PATIENT NAME: Winifred Orosco [facility] [address] [facility] [address] : 1960 DATE OF VISIT: 06/15/2021 SS#: [...] Friends and Family: Not on file Attends Jew Services: Not on file Active Member of [...] TABS losartan (COZAAR) 25 MG tablet omega 3-wvn-mqy-fish oil (FISH OIL) 300-1,000 mg CpDR Take by mouth . aspirin 81 MG EC tablet ASPIRIN EC 81 MG TBEC LISINOPRIL ORAL Take by mouth . No current facility-administered medications on file prior to visit. ALLERGIES/INTOLERANCES Allergies Allergen Reactions Pravastatin Simvastatin Pzyyqfg-Obe-Zow Reductase Inhibitors OBJECTIVE BP 130/84 Pulse 67 [...] TABS losartan (COZAAR) 25 MG tablet omega 9-syk-lnj-fish oil (FISH OIL) 300-1,000 mg CpDR Take by mouth . aspirin 81 MG EC tablet ASPIRIN EC 81 MG TBEC LISINOPRIL ORAL Take by mouth . No current facility-administered medications for this visit. Isolate pending result. documented in this encounter [facility] 06-15-2021 Instructions Herman Taylor MD - 06/15/2021 6:39 PM EDT [facility] COVID-19 Post-swabbing Instructions We will do our best to update you as soon as we receive your test results, but if we had to send your test to be run at the lab, you may see the results on MyChart or receive a call from [facility] before we are able to contact you. [...] results. - If you have an active [employer] account, and your COVID-19 test is negative (not detected), then you will be notified through your Watchwith account. You should call the urgent care if you have any further questions. - If your COVID-19 test is positive (detected), you will receive a phone call to discuss your results and answer any questions you might have at that time. Please make sure [place] has your updated phone number so we can contact you. [facility] will notify the [place] [facility] of any positive results to comply with [...] and warm water and/or alcohol based hand swatch checker, scrubbing your hands for at least 20 [...] Questions? CDC - https://www.cdc.gov/coronavirus/2 019-ncov/index.html - https://www.cdc.gov/coronavirus/2 019-ncov/xz-tmx-dbw-sick/quaranti ne.html [facility] - Website: https://coronavirus.[place].[facility]/wps/ portal/gov/covid-19/home - Hotline: 463-5-ZHP-OD (786-490-7280) [facility]: https://blog.Mobeon/serie s/yiqsu-84-zcqgepbsyfx-toolkit/ documented in this encounter [facility] 04-24-2021 History of Present illness Narrative [facility] [address] [facility] [address] [facility] [id number] No chief complaint on file. Winifred Orosco [...] further review. Allergies Allergen Reactions Pravastatin Simvastatin Lejlfyx-Xow-Krm Reductase Inhibitors Current Outpatient Medications: aspirin 81 MG EC tablet, ASPIRIN EC 81 MG TBEC, Disp: , Rfl: diltiazem (CARDIZEM CD) 120 MG 24 hr capsule, , Disp: , Rfl: glucosamine sulfate 2KCl 1,000 mg Tab, GLUCOSAMINE HCL TABS, Disp: , Rfl: LISINOPRIL ORAL, Take by mouth ., Disp: , Rfl: omega 8-aye-gci-fish oil (FISH OIL) 300-1,000 mg CpDR, Take [...] Social Gatherings with Friends and Family: Attends Jew Services: Active Member of Clubs or Organizations: [...] this treatment plan. documented in this encounter [facility] 04-24-2021 History of Present illness Narrative [facility]ILY TREATMENT NOTE Today's [...] Visit 5: 1:04 - 1:41 Therapeutic Exercise (64556) Intervention SciFit - x5 min Lvl 3 [...] referring provider Az Hunter PT State License, [id number] documented in this encounter [facility] 04-10-2021 History of Present illness Narrative [facility]ILY TREATMENT NOTE Today's [...] Visit 4: 7:50 - 8:30 Therapeutic Exercise (66825) Intervention SciFit - x5 min Lvl 3 [...] VMO tracking Mikayla Roth PTA STATE LICENSE, [id number] documented in this encounter [facility] 04-05-2021 History of Present illness Narrative [facility]ILY TREATMENT NOTE Today's [...] Visit 3: 11:27 - 12:03 Therapeutic Exercise (72916) Intervention SciFit - x5 min Lvl 3 [...] patellar tracking Mikayla Roth PTA STATE LICENSE, [id number] documented in this encounter [facility] 02-27-2021 History of Present illness Narrative [facility] Evaluation Today's Date 02/27/2021 [...] fracture or dislocation identified bilaterally. There is fkqb-ps-qntbebow tricompartmental osteoarthritis involving the right knee, most significant the medial compartment. No joint effusion or layering lipohemarthrosis. There is uvup-uq-mfmprprp bicompartmental osteoarthritis involving the left knee. 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 CPT Code 15984 Low 08757 Moderate 64040 High History 0 1-2 3+ Comorbidities: OA, [...] impairments result in the following functional limitations: health outcomes liaison, functional mobility, recreational activities, quality of life, [...] pain control. Az Hunter PT State License, [id number] documented in this encounter [facility] 02-14-2021 History of Present illness Narrative Associated Order(s): LG Jt Injection/Arthrocentesis: R knee Post-Procedure Diagnose(s): Primary osteoarthritis of right knee; Chondromalacia of patellofemoral joint, right LG Jt Injection/Arthrocentesis: R knee Performed by: Akhil Dupree CNP Authorized by: Akhil Dupree CNP CPT 44175 - Large Joint Arthrocentesis: Consent given by: [...] up. PMH: Allergies Allergen Reactions Pravastatin Simvastatin Flzeemu-Bfd-Mlm Reductase Inhibitors Current Outpatient Medications: aspirin 81 MG EC tablet, ASPIRIN EC 81 MG TBEC, Disp: , Rfl: diltiazem (CARDIZEM CD) 120 MG 24 hr capsule, , Disp: , Rfl: glucosamine sulfate 2KCl 1,000 mg Tab, GLUCOSAMINE HCL TABS, Disp: , Rfl: LISINOPRIL ORAL, Take by mouth ., Disp: , Rfl: omega 8-pjx-ctl-fish oil (FISH OIL) 300-1,000 mg CpDR, Take [...] file Gets together: Not on file Attends faith service: Not on file Active member of [...] no effusion present Imaging:R Knee There is ebcp-qd-yefpxvfx tricompartmental osteoarthritis involving the right knee, most [...] Akhil Dupree CNP documented in this encounter [facility] FoundDocuments on File Type Date Recorded Patient Wild Life Photographer Expl anation Advance Directives and Livin g Will 08/21/2020 3:39 PM Documents on File Type Date Recorded Patient Wild Life Photographer Expl anation Advance Directives and Livin g Will 08/21/2020 3:39 PM Documents on File Type Date Recorded Patient Wild Life Photographer Expl anation Advance Directives and Livin g Will 05/26/2019 3:39 PM Documents on File Type Date Recorded Patient Wild Life Photographer Expl anation Advance Directives and Livin g Will 04/02/2021 5:27 PM Documents on File Type Date Recorded Patient Wild Life Photographer Expl anation Advance Directives and Livin g Will 07/05/2021 5:30 AM Documents on File Type Date Recorded Patient Wild Life Photographer Expl anation Advance Directives and Livin g [...] Bilateral Mammography Screening Bilateral Nancie Clark MD [address] [place] [address] [place] [address] Status Reason Specialty Diagnoses / Procedures Re ferred By Contact Referred To Contact Closed Central Scheduling Diagnoses Post-menopause bleeding Fibroids Procedures US Pelvic Transabdominal and Transvaginal Nancie Clark MD [address] [place] [address] Central Scheduling [address] [place] [address] Status Reason Specialty Diagnoses / Procedures Referred By Contact Referred To Contact Authorized Rehabilitation Diagnoses Primary osteoarthritis of right knee Chondromalacia of patellofemoral joint, right Akhil Dupree, BERNY [address] [place] [address] [place] [address] [address] [place] [address] Status Reason Specialty Diagnoses / Procedures Re ferred By Contact Referred To Contact New Request Radiology Diagnoses Primary osteoarthritis of right knee Chondromalacia of patellofemoral joint, right Procedures MR Knee Right Without Contrast Akhil Dupree, BERNY [address] [place] [address] Specialty Diagnoses / Procedures Referred By Contpanda toams Referred To Contact Cardiology Diagnoses Acute medial meniscus tear of right knee, subsequent encounter S/P right knee arthroscopy Procedures Ultrasound duplex venous leg right Kanu Mcneal MD [address] [place] [address] Referral ID Status Reason Start Date Expiration Date V isits Requested Visits Authorized [id number] New Request 07/10/2021 07/10/2022 1 1 Additional Source Comments Reason for Visit (unrecogniz ed section and content) Status Reason Specialty Diagnoses / Procedures Referre d By Contact Referred To Contact Closed Radiology Diagnoses Visit for screening mammogram Procedures Mammography Screening West Bilateral Mammography Screening Bilateral Nancie Clark MD [address] [facility] [address] [place] [address] Status Reason Specialty Diagnoses / Procedures Re ferred By Contact Referred To Contact Closed Central Scheduling Diagnoses Post-menopause bleeding Fibroids Procedures US Pelvic Transabdominal and Transvaginal Nancie Clark MD [address] [facility] [address] [place] [address] Central Scheduling [address] [place] [address] Status Reason Specialty Diagnoses / Procedures Referred By Contact Referred To Contact Pending Review Radiology Diagnoses Breast nodule Procedures Mammography Diagnostic West Bilateral Mammography Diagnostic Bilateral Kylah Ch CNP 3525 [facility] [address] [place] [id number] Central Scheduling [address] [place] [address] Reason Comments Pain Reason Comments Physical Therapy Status Reason Specialty Diagnoses / Procedures Referred By Contact Referred To Contact Authorized Rehabilitation Diagnoses Primary osteoarthritis of right knee Chondromalacia of patellofemoral joint, right Akhil Dupree, BERNY [address] [place] [address] [facility] [place] [address] [place] [address] Reason Comments Results Reason Comments Covid-19 Screening headache, sore throa t, x this morning. fully vaccinated Reason Comments Pre-op Exam right knee Reason Comments Suture / Staple Removal Wound Check INFORMATION SOURCE (unrecogn ized section and content) DATE CREATED AUTHOR AUTHOR'S ORGANIZ ATION 06/16/2021 [facility] Urge nt Care DATE CREATED AUTHOR AUTHOR'S ORGANIZ ATION 07/20/2021 [facility] Ambu latory DATE CREATED AUTHOR AUTHOR'S ORGANIZ ATION 08/23/2021 [facility] DATE CREATED AUTHOR AUTHOR'S ORGANIZ ATION 11/05/2022 [facility] Care Teams (unrecognized sec tion and content) 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 Relationship Specialty Start Date End Date Gabe Weinberg MD [address] [facility] [place] [address] PCP - WADE Attributed Provider - [facility] 01/10/19 Michell Tirado MD [address] [facility] [place] [address] PCP - General Internal Medicine 05/26/19 Britta Weldon MD 3727 [facility] 2 [place] [address] 03/25/11 Nancie Clark MD 4600 [facility] [address] [place] [address] Finance Director Obstetrics/Gynecolo gy 04/06/18 Nancie Clark MD 4796 [facility] [address] [place] [address] WADE Attributed Provider - TREATING INSPECTOR Obstetrics/Gynecolo gy 09/01/17 Robert Hendricks MD [address] [place] [address] WADE Attributed Provider - Family Medicine Family Medicine 01/07/17 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 Relationship Specialty Start Date End Date Gabe Weinberg MD [address] [address] PCP - WADE Attributed Provider - [facility] 01/10/19 Michell Tirado MD [address] [facility] [place] [address] PCP - General Internal Medicine 05/26/19 Britta Weldon MD [address] [place] [address] 2 [place] [address] 03/25/11 Nancie Clark MD [address] [facility] [address] [place] [address] Finance Director Obstetrics/Gynecolo gy 04/06/18 Nancie Clark MD [address] [place] [address] Rd [address] [place] [address] WADE Attributed Provider - TREATING INSPECTOR Obstetrics/Gynecolo gy 09/01/17 Robert Hendricks MD E [facility] [place] [address] WADE Attributed Provider - Family Medicine Family Medicine 01/07/17 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 Relationship Specialty Start Date End Date Gabe Weinberg MD [address] [place] [address] PCP - WADE Attributed Provider - [facility] 01/10/19 Michell Tirado MD 12[address] [facility] [place], [place] [address] PCP - General Internal Medicine 05/26/19 Britta Weldon MD [address] [place] [address] 2 [place] [address] 03/25/11 Nancie Clark MD 3525 [facility] [address] [place] [address] Finance Director Obstetrics/Gynecolo gy 04/06/18 [place] [address] [place] [address] Rd [facility] [address] [place] [address] WADE Attributed Provider - TREATING INSPECTOR Obstetrics/Gynecolo gy 09/01/17 Robert Hendricks MD [address] [place] [address] WADE Attributed Provider - Family Medicine Family Medicine 01/07/17 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 Relationship Specialty Start Date End Date Gabe Weinberg MD 3521 [facility] [place] [address] PCP - WADE Attributed Provider - [facility] 01/10/19 Michell Tirado MD [address] [facility] [place] [address] PCP - General Internal Medicine 05/26/19 Britta Weldon MD 3727 [facility] [place] [address] 03/25/11 Nancie Clark MD [address] [address] Finance Director Obstetrics/Gynecolo gy 04/06/18 Nancie Clark MD 3525 [facility] [address] [place] [address] WADE Attributed Provider - TREATING INSPECTOR Obstetrics/Gynecolo gy 09/01/17 Robert Hendricks MD [address] [place] [address] WADE Cody Provider - [facility] Family Medicine 01/07/17 Source Comments (unrecognize d section and content) In the event this informatio n is protected by the Federal Confidentiality of Alcohol and Drug Abuse Patient Records regulations: The Federal rules restrict any use of the information to criminally investigate or prosecute any alcohol or drug abuse patient.[facility] the event this information is protected by the Federal Confidentiality of Alcohol and Drug Abuse Patient Records regulations: The Federal rules restrict any use of the information to criminally investigate or prosecute any alcohol or drug abuse patient.[facility] Center[facility] the event this information is protected by the Federal Confidentiality of Alcohol and Drug Abuse Patient Records regulations: The Federal rules restrict any use of the information to criminally investigate or prosecute any alcohol or drug abuse patient.[facility] FOR RECORDS PERTAINING TO PATIENTS WHO ARE [...] BE BASED ON THE PRIMARY CLINICAL RECORDS. [facility] [employer] [facility]. provides no warranty or guarantee of the accuracy or completeness of information in this document.
[2024-01-01 10:30] LABS: Anion Gap 4 (5-15); BUN 11 mg/dL (7-18); BUN/Creat Ratio 14.2 RATIO (10-20); Calcium,Total 9.5 mg/dL (8.5-10.1); Chloride 106 mmol/L (98-107); Creatinine, Serum 0.78 mg/dL (0.55-1.02); EST Glomerular Filtration Rate 80 mL/min (>60); Est Glom Filt Rate - Afr Amer 97 mL/min (>60); Glucose 96 mg/dL (74-106); Potassium 4.1 mmol/L (3.5-5.1); Sodium Level 141 mmol/L (136-145); Thyroid Stim Hormone (TSH) 3.12 uIU/mL (0.358-3.74)
== END | disposition home or self-care (01) ==
LOC: MTLAB 07:07
PROVIDERS: PCP Family Medicine; Referring Provider Family Medicine; Visit Provider Family Medicine
DX: I10 Essential (primary) hypertension (principal); E78.5 Hyperlipidemia, unspecified; Z83.3 Family history of diabetes mellitus
CPT/HCPCS: 36415; 80048; 84443

== ENCOUNTER → 2024-01-26 | Outpatient (CLI) | payer BC, SELFPAY ==
--- NOTE | 2024-01-26 10:06 | BI_ITS ---
MAMMOGRAPHY - BILATERAL SCREENING REASON FOR EXAM: Female, 63 years old. Routine annual screening examination. PERTINENT HISTORY: Non-contributory. Remote right breast biopsy. TECHNIQUE: Digital bilateral breast phylicia (3D mammographic acquisition) in the CC and MLO projections. 2-D mediolateral oblique (MLO) and craniocaudad (CC) views of both breasts were obtained. CAD: Full Field Digital Mammography with Computer Added Detection was performed. COMPARISON: Comparison is made with prior outside examination dated October 17, 2022. FINDINGS: Breast Composition: The breasts are extremely dense, which lowers the sensitivity of mammography. I suspect a 1.4 cm x 1 cm nodular density in the deep central medial aspect of the left breast. Correlation with ultrasound is recommended. Stable small benign-appearing bilateral axillary lymph nodes. No other significant abnormalities are identified. BI/SCRN MAMM (CAD)W/PHYLICIA BILAT IMPRESSION: I suspect a 1.4 cm x 1 cm nodular density in the deep central medial aspect of the left breast. Correlation with ultrasound is recommended. ASSESSMENT CATEGORY: BIRADS Category 0: Incomplete. Need additional imaging evaluation. A letter regarding these results will be sent to the patient by the facility within 30 days. Approximately 10% of breast cancers are not detected by mammography. A normal mammogram should not delay biopsy of a clinically suspicious abnormality. [id number] Electronically Signed: Bill Og MD at 14:22 EDT ,
== END | disposition home or self-care (01) ==
LOC: OPBI 10:05
PROVIDERS: PCP Family Medicine; Referring Provider Family Medicine; Visit Provider Family Medicine
DX: Z12.31 Encounter for screening mammogram for malignant neoplasm of breast (principal)
CPT/HCPCS: 77063; 77067

== ENCOUNTER → 2024-01-29 | Outpatient (CLI) | payer BC, SELFPAY ==
--- NOTE | 2024-01-29 10:06 | US_ITS ---
STUDY: ULTRASOUND BREAST - LEFT REASON FOR EXAM: Female, 63 years old. Abnormal screening mammogram. TECHNIQUE: Axial and longitudinal images of the LEFT breast were performed with a high resolution ultrasound transducer. # OF IMAGES: 34 COMPARISON: Comparison is made with prior mammogram dated January 26, 2024. FINDINGS: LEFT Breast: The medial inner aspect of the left breast was examined with ultrasound. The mammographic abnormality corresponds to a 1.6 cm x 1.4 cm x 0.7 cm well-defined hypoechoic solid nodule at the 9:00 patient the breast at 4 cm from the nipple. Biopsy recommended. US/Breast Limited Unilateral IMPRESSION: 1.6 cm x 1.4 cm x 0.7 cm well-defined hypoechoic solid nodule at the 9:00 position of the breast at 4 separate from nipple. Biopsy recommended. ASSESSMENT CATEGORY: BIRADS Category 4: Suspicious - Biopsy Should Be Considered. A letter regarding these results will be sent to the patient by the facility within 30 days. Electronically Signed: Bill Og MD at 12:57 EDT ,
== END | disposition home or self-care (01) ==
PROVIDERS: PCP Family Medicine; Referring Provider Family Medicine; Visit Provider Family Medicine
DX: R92.8 Other abnormal and inconclusive findings on diagnostic imaging of breast (principal); N63.20 Unspecified lump in the left breast, unspecified quadrant
CPT/HCPCS: 76642

== ENCOUNTER → 2024-02-10 | Outpatient (CLI) | payer BC, SELFPAY ==
--- NOTE | 2024-02-09 08:10 | BRBX_PTH ---
PATIENT: DAVID OROSCO LOC: [facility] U#:[id number] AGE/SX: 63/F ROOM: RE02/10/[address]: Dr. Julius Warren MD : 1960 BED: DIS: 02/10/2024 SPEC #: [id number] RECD: 02/10/24 10:35 STATUS: CRIS RE[place] #: [id number] KATHYA: 02/09/24 08:[address]: Julius Warren DEPT: SURGICAL PATHOLOGY RECD BY: Pratibha Mas ENTERED: 02/10/24 11:35 SP TYPE: BREAST BX OTHR DR: Dr. Michell Tirado MD Tissues: Left breast, NOS Procedures: Surgery Specimen Level IV HEADER OPERATION: Left breast biopsy PRE-OP DIAGNOSIS: Left breast mass TISSUE SUBMITTED: Left breast tissue MICROSCOPIC DIAGNOSIS Left breast tissue, core biopsy: Fragments of benign breast tissue with dense fibrosis. Negative for atypia or malignancy. See comment. SJ/mr 02/11/2024 COMMENT Correlation with clinical, radiologic findings and appropriate follow up are necessary. MICROSCOPIC DESCRIPTION Slides are reviewed. GROSS DESCRIPTION Received in fixative is one container labeled with the patient's name and designated Left breast tissue. The specimen consists of multiple elongated fragments of york yellow fibroadipose tissue that in aggregate measure 2.0 x 0.3 x 0.1 cm. The specimen is totally submitted in one cassette. / 02/10/24 TC:5 CPT:16910
== END | disposition home or self-care (01) ==
LOC: LABSPEC 10:38
PROVIDERS: PCP Family Medicine; Referring Provider Surgery; Visit Provider Surgery
DX: R92.30 Dense breasts, unspecified (principal)
CPT/HCPCS: 88305

== ENCOUNTER → 2024-06-20 | Outpatient (CLI) | payer BC, SELFPAY ==
[2024-06-20 11:21] LABS: AST(SGOT) 18 U/L (15-37); Alanine Aminotransfer ALT/SGPT 25 U/L (13-56); Albumin, Serum 3.8 g/dL (3.2-5.0); Alkaline Phosphatase 98 U/L (45-117); Bilirubin, Direct 0.18 mg/dL (0.00-0.30); Cholesterol 241 mg/dL (200); Globulin 3.2 g/dL (2.2-4.2); High Density Lipoprotein 68 mg/dL; Triglycerides 136 mg/dL; Very Low Density Lipoprotein 27 mg/dL (5-40)
== END | disposition home or self-care (01) ==
LOC: MTLAB 07:11
PROVIDERS: PCP Family Medicine; Referring Provider Nurse Practitioner Gerontology; Visit Provider Nurse Practitioner Gerontology
DX: E78.5 Hyperlipidemia, unspecified (principal)
CPT/HCPCS: 36415; 80061; 80076

== ENCOUNTER → 2024-08-01 | Outpatient (CLI) | payer BC, SELFPAY ==
--- NOTE | 2024-08-01 10:43 | US_ITS ---
STUDY: ULTRASOUND BREAST - LEFT REASON FOR EXAM: Female, 64 years old. 6 month follow-up examination following biopsy. TECHNIQUE: Axial and longitudinal images of the LEFT breast were performed with a high resolution ultrasound transducer. # OF IMAGES: 21 COMPARISON: Comparison is made with prior sonogram dated January 29, 2024. FINDINGS: LEFT Breast: Stable 1.6 cm x 1.4 cm x 0.7 cm hypoechoic nodular density with a clip within it at the 9:00 position of the breast at 4 cm from the nipple. US/Breast Limited Unilateral IMPRESSION: Persistent nodular density at the 9:00 position breast at 4 cm from the nipple. A tissue clip marker is seen within. ASSESSMENT CATEGORY: BIRADS Category 2: Benign. A letter regarding these results will be sent to the patient by the facility within 30 days. Electronically Signed: Bill Og MD at 11:22 EDT ,
== END | disposition home or self-care (01) ==
LOC: OPUS 10:43
PROVIDERS: PCP Family Medicine; Referring Provider Surgery; Visit Provider Surgery
DX: N63.22 Unspecified lump in the left breast, upper inner quadrant (principal)
CPT/HCPCS: 76642

== ENCOUNTER 2024-09-15 09:41 | Day surgery (SDC) | payer BC, SELFPAY ==
[2024-09-15] VITALS (7 sets, daily range): BP systolic 85–122; BP diastolic 61–73; PULSE 57–62; RESP 14–16; TEMP 36.3–36.4; O2SAT 94–98; BMI 33.7
--- NOTE | 2024-09-15 09:51 | PCM.HP.STD ---
HPI - General General Date of Admission: 09/15/24 Date of Service: 09/15/24 Chief Complaint: Screening colonoscopy HPI Narrative DAVID OROSCO, is a 64 F who presents today for screening colonoscopy. She had a colonoscopy approximately 10 years ago that was normal. She denies any abdominal pain. She denies any chest pain or shortness of breath. Overall she is in very good health. [facility] Medical History (Updated 09/13/24 @ 09:46 by Flores Yeh) Wears glasses Post-menopausal Alcohol use Arthritis Former smoker History of edema History of Holter monitoring History of echocardiogram History of stress test Cardiology follow-up encounter History of irregular heartbeat Abnormal mammogram Near syncope Obstructive sleep apnea hypopnea, mild History of paroxysmal atrial tachycardia Premature ventricular contraction Leiomyoma of body of uterus Ventricular premature depolarization Nonsustained paroxysmal ventricular tachycardia Hypertension Hyperlipidemia Home Medications ?Medication ?Instructions ?Recorded ?Last Taken ?Type loratadine 10 mg tablet (Claritin) 10 mg PO QDAY PRN allergy symptoms 05/10/18 Unknown History calcium carbonate (Calcium 500) 500 mg PO DAILY 12/13/21 Unknown History omega-3 fatty acids 1,000 mg 1,000 mg PO DAILY 12/13/21 Unknown History capsule (Fish Oil Concentrate) multivitamin (Daily Multi-Vitamin 1 tab PO DAILY 08/06/22 Unknown History tablet) sgwlmluzfgt-isb-rjbjicqrv-hrb 1 tab PO BID 01/01/24 Unknown History 149-hyalur 500 mg-500 mg-66.7 mg tablet (Oafrrhiguae-Xrghyqyyzrb-EBP (with antiox)) losartan 25 mg tablet 25 mg PO BID #180 tabs 01/11/24 Unknown Rx metoprolol succinate 25 mg 25 mg PO DAILY #90 tabs 01/11/24 Unknown Rx tablet,extended release 24 hr diltiazem HCl 360 mg 360 mg PO DAILY #90 caps 04/08/24 Unknown Rx capsule,extended release 24 hr evolocumab 140 mg/mL subcutaneous 140 mg subcut Q2W #2 mL 06/20/24 Unknown Rx pen injector (Mckenna Patel) Allergy/AdvReac Type Severity Reaction Status Date / Time pravastatin AdvReac Severe Severe Verified 09/13/24 09:37 myalgias simvastatin AdvReac Severe Severe Verified 09/13/24 09:37 myalgias ezetimibe (From Zetia) AdvReac Intermediate Myalgias Verified 09/13/24 09:37 Family History Brother Diabetes Hypertension Hyperlipidemia CAD (coronary artery disease) Stented coronary artery Sister Atrial fibrillation Alcoholism Mother Alcoholism Lung cancer Surgical History (Updated 09/13/24 @ 09:46 by Flores Yeh) History of cardiac catheterization Hx of colonoscopy History of arthroscopy of right knee (07/05/21) Social History (Updated 07/21/24 @ 08:57 by Olivia Birmingham) household members: spouse current occupational status: retired Smoking Status: Former smoker how long ago did patient quit smokin alcohol intake: current alcohol intake frequency: a few times a week substance use type: does not use caffeine: Yes Type: coffee Number of servings: 2 what type of physical activity do you participate in: swimming and other details: ski frequency: 3-4 times per week seatbelt use: always do you feel safe at home: Yes additional social history: -Adelaide ROS Review of Systems ROS Unobtainable: other Constitutional Constitutional: Denies fatigue, fever(s), poor appetite, weight gain or weight loss ENT HEENT: Denies mouth lesions Cardiovascular Cardiovascular: Denies abdominal bloating, abdominal edema or abdominal pain Respiratory/Chest Respiratory/Chest: Denies change in mental status, change in phlegm color, chest congestion or chest tightness Gastrointestinal Gastrointestinal: Denies belching, bloating, change in bowel habits, change in stool character, chewing difficulty, coffee ground emesis, constipation, cramping, diarrhea, dyspepsia, dysphagia, early satiety, excessive flatus, fecal incontinence, heartburn, hematemesis, hematochezia, hemorrhoids, loose stools, melena, nausea, odynophagia, rectal bleeding, tenesmus, vomiting or weight changes Genitourinary Genitourinary: Denies abdominal discomfort, burning urination or itching Musculoskeletal Musculoskeletal: Reports as per HPI; Denies muscle weakness or myalgias Integumentary Integumentary: Denies jaundice Neurologic Neurologic: Denies lack of coordination or weakness Psychiatric Psychiatric: Denies confusion, depression, memory loss, mood swings, paranoia or suicidal ideation Endocrine Endocrinology: Denies systems reviewed and no addt'l complaints, except as documented Hematologic/Lymphatic Hematologic/Lymphatic: Denies anemia, easy bleeding, easy bruising or lymphadenopathy Allergic/Immunologic Allergic/Immunologic: Denies systems reviewed and no addt'l complaints, except as documented Physical Exam Const alert General Appearance: cooperative Orientation / Consciousness: oriented to person HEENT hearing grossly normal bilaterally Head and Scalp: normal to inspection Face and Sinus: face symmetric Nose: external nose normal Mouth: oral and palatal mucosa normal Eyes conjunctivae normal General Eye: normal appearance of both eyes Neck full ROM General: normal visual inspection Lymph Lymphatic: no lymphadenopathy noted Chest inspection of chest normal and palpation of chest normal Chest: symmetrical chest wall rise Resp normal respiratory effort Effort and Inspection: able to speak in complete sentences Cardio regular rate GI non-distended Percussion: normal to percussion Rectal Exam: deferred Neuro Speech: speech normal Gait (Neuro): normal gait Assessment & Plan Assessment/Plan (1) Encounter for screening for malignant neoplasm of colon: PLAN: She was explained alternatives, benefits, risk including not withstanding bleeding, infection, sepsis, perforation, need for emergent urgent . She have an ASA of 3.
--- NOTE | 2024-09-15 10:19 | PRE.ANES_ITS ---
ASA Classification* ASA Classification ASA Classification: 3 Assessment & Plan Anesthesia* Anesthesia Assessment Anesthesia Assessment: Discussed sedation and/or anesthesia options, risks, benefits, and alternatives with patient/parents/legal guardian/POA. Questions invited. The patient/parents/legal guardian/POA seems to understand and agrees to proceed with anesthesia plan. Reviewed the physical assessment, medical history, allergy history and patient home medications list prior to surgery/procedure/anesthetic and documented any changes. Performed airway and anesthesia risk assessments. Anesthesia Type Anesthesia Type: MAC Anesthesia Focused Assessment* Temperature: 97.5 F Pulse Rate: 62 Blood Pressure: 122/73 Respiratory Rate: 16 Pulse Ox: 97 Airway Assessment Mouth opens: >3 cm Mallampati Score: II Focused Labs Anesthesia Preop lab: CBC WBC 4.5 K/mm3 (4.4-11.0) 12/13/21 10:23 RBC 4.78 M/mm3 (4.2-5.4) 12/13/21 10:23 Hgb 15.0 g/dL (12.0-15.0) 12/13/21 10:23 Hct 43.2 % (37-47) 12/13/21 10:23 Plt Count 276 K/mm3 (150-450) 12/13/21 10:23 CHEMISTRY Potassium 4.1 mmol/L (3.5-5.1) 01/01/24 07:11 Sodium 141 mmol/L (136-145) 01/01/24 07:11 Magnesium 2.3 mg/dL (1.6-2.6) 12/13/21 10:23 BUN 11 mg/dL (7-18) 01/01/24 07:11 Creatinine 0.78 mg/dL (0.55-1.02) 01/01/24 07:11 Glucose 96 mg/dL (74-106) 01/01/24 07:11 TSH 3.12 uIU/mL (0.358-3.74) 01/01/24 07:11 COAG Pre-Assessment Diagnosis/Proposed Procedure Planned Operative Procedure(s): COLONOSCOPY-OA Anesthesia History Anesthesia History - client relationship consultant: Anesthesia History - client relationship consultant Hx Hospitalization No 09/13/24 09:46 Any Problems With Anesthesia No 09/13/24 09:46 Cholinesterase deficiency No 09/13/24 09:46 You/Your Family Experience No 09/13/24 09:46 fever (hyperthermia) with Relationship Recent Exposure to Contagious No 09/15/24 10:11 Disease Does patient have nerve No 09/13/24 09:46 stimulator Patient instructed to have device shut off --Does patient have Pacemaker No 09/15/24 10:11 or ICD? When Was Last Pacemaker Check QUESTION #4 FULL TEXT: You/Your Family Experience fever (hyperthermia) with Anesthesia Last Oral Intake Last Oral intake: Last Oral Intake NPO since 06:30 09/15/24 10:11 Meds taken in AM with sips of Yes 09/15/24 10:11 water? Meds patient instructed to metoprolol, losartan 09/15/24 10:11 take am of surgery PONV PONV - client relationship consultant: PONV - client relationship consultant Female Yes 09/13/24 09:46 HX of Motion Sickness No 09/13/24 09:46 HX of N/V After Surgery No 09/13/24 09:46 Non-Smoker Yes 09/13/24 09:46 Duration of Surgery greater No 09/13/24 09:46 than 60 minutes Number of Risk Factors 2 09/13/24 09:46 PONV Score Moderate Risk 09/13/24 09:46 Height & Weight Height & Weight: Anesthesia: Height & Weight Height 6 ft 09/15/24 10:11 Weight: 112.9 kg 09/15/24 10:11 Body Mass Index (BMI) 33.7 09/15/24 10:11 Respiratory Assessment Respiratory Assessment - client relationship consultant: Respiratory Tract Infection Hx - client relationship consultant Hx Respiratory Tract Infection No 09/13/24 09:46 STOP Sleep Apnea STOP Sleep Apnea - client relationship consultant: STOP Sleep Apnea - client relationship consultant Hx Hypertension Yes: CONTROLED ON MED 09/13/24 09:46 Hx Sleep Apnea No 09/13/24 09:46 CPAP BIPAP Do you snore loudly (louder No 09/13/24 09:46 than talking or can be heard Do you often feel tired/ No 09/13/24 09:46 fatigued/ sleepy during daytime? Has anyone observed you stop No 09/13/24 09:46 breathing during sleep? STOP Results Negative 09/13/24 09:46 QUESTION #5 FULL TEXT : Do you snore loudly (louder than talking or can be heard through closed doors)? 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 Specify any problems Hx of Preganancy in last 3 No 09/13/24 09:46 Months Nurse Filling Out Transfusion VCHRISTIN 09/13/24 09:46 & Questions: Date: 09/13/24 09/13/24 09:46 Time: 09:47 09/13/24 09:46 Patient unable to answer at this time (ie. confused, unrespo /Reproduction History /Reproductive History - client relationship consultant: /Reproductive Hx- client relationship consultant Hx Now No 09/13/24 09:46 Gestational Age (in weeks): EDC: Hx Hx Para Hx Section SAB No 09/13/24 09:46 PFSH Medical History Wears glasses Post-menopausal Alcohol use Arthritis Former smoker History of edema History of Holter monitoring History of echocardiogram History of stress test Cardiology follow-up encounter History of irregular heartbeat Abnormal mammogram Near syncope Obstructive sleep apnea hypopnea, mild History of paroxysmal atrial tachycardia Premature ventricular contraction Leiomyoma of body of uterus Ventricular premature depolarization Nonsustained paroxysmal ventricular tachycardia Hypertension Hyperlipidemia Home Medications ?Medication ?Instructions ?Recorded ?Last Taken ?Type loratadine 10 mg tablet (Claritin) 10 mg PO QDAY PRN allergy symptoms 05/10/18 Unknown History calcium carbonate (Calcium 500) 500 mg PO DAILY 12/13/21 Unknown History omega-3 fatty acids 1,000 mg 1,000 mg PO DAILY 12/13/21 Unknown History capsule (Fish Oil Concentrate) multivitamin (Daily Multi-Vitamin 1 tab PO DAILY 08/06/22 Unknown History tablet) yhsbliwzjnp-xtr-qgzpuyqea-hrb 1 tab PO BID 01/01/24 Unknown History 149-hyalur 500 mg-500 mg-66.7 mg tablet (Istnldytdbo-Ueblvcpezda-WWP (with antiox)) losartan 25 mg tablet 25 mg PO BID #180 tabs 01/11/24 09/15/24 05:30 Rx metoprolol succinate 25 mg 25 mg PO DAILY #90 tabs 01/11/24 09/15/24 05:30 Rx tablet,extended release 24 hr diltiazem HCl 360 mg 360 mg PO DAILY #90 caps 04/08/24 09/14/24 20:00 Rx capsule,extended release 24 hr evolocumab 140 mg/mL subcutaneous 140 mg subcut Q2W #2 mL 06/20/24 Unknown Rx pen injector (Mckenna Patel) Allergy/AdvReac Type Severity Reaction Status Date / Time pravastatin AdvReac Severe Severe Verified 09/13/24 09:37 myalgias simvastatin AdvReac Severe Severe Verified 09/13/24 09:37 myalgias ezetimibe (From Zetia) AdvReac Intermediate Myalgias Verified 09/13/24 09:37 Family History Brother Diabetes Hypertension Hyperlipidemia CAD (coronary artery disease) Stented coronary artery Sister Atrial fibrillation Alcoholism Mother Alcoholism Lung cancer Surgical History History of cardiac catheterization Hx of colonoscopy History of arthroscopy of right knee (07/05/21) Social History household members: spouse current occupational status: retired Smoking Status: Former smoker how long ago did patient quit smokin alcohol intake: current alcohol intake frequency: a few times a week substance use type: does not use caffeine: Yes Type: coffee Number of servings: 2 what type of physical activity do you participate in: swimming and other details: ski frequency: 3-4 times per week seatbelt use: always do you feel safe at home: Yes additional social history: -Adelaide Review of Systems (Anesthesia) ROS Narrative System reviewed and no additional complaints, except as documented.
--- NOTE | 2024-09-15 10:45 | COLBX_PTH ---
PATIENT: DAVID OROSCO LOC: [facility] U#:[id number] AGE/SX: 64/F ROOM: RE09/15/[address]: Dr. Abilio Estevez DO : 1960 BED: DIS: 09/15/2024 SPEC #: [id number] RECD: 09/15/24 13:25 STATUS: CRIS JONY #: [id number] KATHYA: 09/15/24 10:[address]: Abilio Estevez DEPT: SURGICAL PATHOLOGY RECD BY: Niharika Ramirez ENTERED: 09/15/24 14:33 SP TYPE: COLON BX OTHR DR: Dr. Michell Tirado MD Tissues: A - Descending colon B - Cecum, NOS C - Transverse colon D - Sigmoid colon biopsy E - Rectum, NOS Procedures: Surgery Specimen Level IV HEADER OPERATION: Colonoscopy with biopsy, polypectomy PRE-OP DIAGNOSIS: Encounter for screening for malignant neoplasm of colon TISSUE SUBMITTED: A- Descending colon polyp, B- Cecum polyp, C- Transverse colon polyp, D- Sigmoid polyp, E- Rectum polyp MICROSCOPIC DIAGNOSIS A. Descending colon polyp, polypectomy: Tubular adenoma. B. Cecum polyp, polypectomy: Fragments of hyperplastic polyp. C. Transverse colon polyp, polypectomy: Hyperplastic polyp. D. Sigmoid polyp, polypectomy: Fragments of tubular adenoma. E. Rectum polyp, polypectomy: Fragments of tubular adenoma. 09/16/2024 MICROSCOPIC DESCRIPTION Slides are reviewed. GROSS DESCRIPTION A. Received in fixative is one container labeled with the patient's name and designated Descending colon polyp. The specimen consists of one irregular fragment of light [place] soft tissue that measures 0.4 x 0.4 x 0.2 cm. The specimen is totally submitted in one cassette. B. Received in fixative is one container labeled with the patient's name and designated Cecum polyp. The specimen consists of multiple irregular fragments of light [place] soft tissue that in aggregate measure 1.0 x 0.3 x 0.1 cm. The specimen is totally submitted in one cassette. C. Received in fixative is one container labeled with the patient's name and designated Transverse colon polyp. The specimen consists of one irregular fragment of light [place] soft tissue that measures 0.4 x 0.3 x 0.1 cm. The specimen is totally submitted in one cassette. D. Received in fixative is one container labeled with the patient's name and designated Sigmoid colon polyp. The specimen consists of two irregular fragments of light [place] soft tissue that in aggregate measure 0.6 x 0.4 x 0.1 cm. The specimen is totally submitted in one cassette. E. Received in fixative is one container labeled with the patient's name and designated Rectum polyp. The specimen consists of a york-pink polyp measuring 0.7 x 0.5 x 0.4cm. Also present in the container are a few fragments of [place] soft tissue measuring in aggregate 0.4 x 0.2 x 0.1cm. The entire specimen is submitted in one cassette. SJ 09/15/2024 TC:1 CPT:[id number]
--- NOTE | 2024-09-15 11:33 | OP.COLON_ITS ---
Patient Name: Winifred Lee Procedure Date: 09/15/2024 10:57 AM Date of : 1960 Age: 64 Procedure: Colonoscopy Indications: High risk colon cancer surveillance: Personal history of colonic polyps Providers: Abilio Estevez DO Referring MD: Michell Tirado Medicines: Monitored Anesthesia Care Patient Profile: This is a 64 year old female. Refer to note in patient chart for documentation of history and physical. Last Colonoscopy: 5 years ago. Complications: No immediate complications. Procedure: Pre-Anesthesia Assessment: - Prior to the procedure, a History and Physical was performed, and patient medications and allergies were reviewed. The patient is competent. The risks and benefits of the procedure and the sedation options and risks were discussed with the patient. All questions were answered and informed consent was obtained. Patient identification and proposed procedure were verified by the physician in the pre-procedure area. Mental Status Examination: alert and oriented. Airway Examination: normal oropharyngeal airway and neck mobility. Respiratory Examination: clear to auscultation. CV Examination: normal. Prophylactic Antibiotics: The patient does not require prophylactic antibiotics. Prior Anticoagulants: The patient has taken no anticoagulant or antiplatelet agents except for NSAID medication. ASA Grade Assessment: II - A patient with mild systemic disease. After reviewing the risks and benefits, the patient was deemed in satisfactory condition to undergo the procedure. The anesthesia plan was to use monitored anesthesia care (MAC). Immediately prior to administration of medications, the patient was re-assessed for adequacy to receive sedatives. The heart rate, respiratory rate, oxygen saturations, blood pressure, adequacy of pulmonary ventilation, and response to care were monitored throughout the procedure. The physical status of the patient was re-assessed after the procedure. After I obtained informed consent, the scope was passed under direct vision. Throughout the procedure, the patient's blood pressure, pulse, and oxygen saturations were monitored continuously. The Colonoscope was introduced through the anus and advanced to the cecum, identified by appendiceal orifice and ileocecal valve. The colonoscopy was performed without difficulty. The patient tolerated the procedure well. The quality of the bowel preparation was adequate. The ileocecal valve, appendiceal orifice, and rectum were photographed. Scope In: 11:04:17 AM Scope Withdrawal Time 0 hours 11 minutes 43 seconds Scope Out: 11:24:06 AM Total Procedure Duration Time 0 hours 19 minutes 49 seconds Findings: The perianal and digital rectal examinations were normal. Four sessile polyps were found in the rectum, sigmoid colon and descending colon. The polyps were 1 to 2 mm in size. These polyps were removed with a hot snare. Resection and retrieval were complete. Verification of patient identification for the specimen was done. Estimated blood loss was minimal. Two sessile polyps were found in the transverse colon and cecum. The polyps were 1 to 2 mm in size. These polyps were removed with a jumbo cold forceps. Resection and retrieval were complete. Verification of patient identification for the specimen was done. Estimated blood loss was minimal. Two small-mouthed diverticula were found in the recto-sigmoid colon. Impression: - Four 1 to 2 mm polyps in the rectum, in the sigmoid colon and in the descending colon, removed with a hot snare. Resected and retrieved. - Two 1 to 2 mm polyps in the transverse colon and in the cecum, removed with a jumbo cold forceps. Resected and retrieved. - Diverticulosis in the recto-sigmoid colon. Recommendation: - Discharge patient to home. - Resume previous diet. - Continue present medications. - Await pathology results. - Repeat colonoscopy in 3 years for surveillance. Procedure Code(s): --- Professional --- 11945, Colonoscopy, flexible; with removal of tumor(s), polyp(s), or other lesion(s) by snare technique 53599, 59, Colonoscopy, flexible; with biopsy, single or multiple CPT copyright 2021 [employer]. All rights reserved. The codes documented in this report are preliminary and upon motor coach bus driver review may be revised to meet current compliance requirements. Abilio Estevez DO 09/15/2024 11:32:37 AM This report has been signed electronically. Number of Addenda: 0 Note Initiated On: 09/15/2024 10:57 AM
--- NOTE | 2024-09-15 11:33 | OP.CCLET_ITS ---
09/15/2024 Michell Tirado [place] [id number] [place] [address] Re : Colonoscopy procedure for Winifred Larsenleida Dear Dr. Tirado This procedure was performed on August. My impressions and recommendations are as follows: Impressions : - Four 1 to 2 mm polyps in the rectum, in the sigmoid colon and in the descending colon, removed with a hot snare. Resected and retrieved. - Two 1 to 2 mm polyps in the transverse colon and in the cecum, removed with a jumbo cold forceps. Resected and retrieved. - Diverticulosis in the recto-sigmoid colon. Recommendations : - Discharge patient to home. - Resume previous diet. - Continue present medications. - Await pathology results. - Repeat colonoscopy in 3 years for surveillance. My findings are described in the full procedure note, which is enclosed. If I can be of further assistance, please feel free to contact me at . Sincerely, Abilio Estevez, 09/15/2024 11:32:37 AM This report has been signed electronically.
--- NOTE | 2024-09-15 11:39 | PCM.POST.ANE ---
Anesthesia: Postop Eval I Current Vital Signs Temperature: 97.4 F Pulse Rate: 61 Blood Pressure: 87/61 Respiratory Rate: 14 Pulse Ox: 96 Oxygen Delivery Method: Room Air Assessment Airway patent: Yes Spontaneous unlabored respirations: Yes Mental status: Asleep nausea: No Vomiting: No Anesthesia Complication: No Fluid Hydration Crystalloid volume administer (ml): 60 Total IV fluid infused: 60 Progress Note Anesthesia document: Postop Eval 1 completed: Yes
--- NOTE | 2024-09-15 17:02 | PCM.POSTANE2 ---
Anesthesia Postop Eval I Sum Postop Eval Completion status Anesthesia document: Postop Eval 1 completed: Yes Anesthesia Postop Eval I Summary Anesthesia Postop Eval I Summary: Anesthesia Postop Eval I: Assessment Summary Airway patent Yes 09/15/24 11:40 [email or web address] Spontaneous unlabored Yes 09/15/24 11:40 [email or web address] respirations Mental status Asleep 09/15/24 11:40 [email or web address] nausea No 09/15/24 11:40 [email or web address] Vomiting No 09/15/24 11:40 [email or web address] Anesthesia Postop Eval I: Fluid Summary Crystalloid volume administer 60 09/15/24 11:40 [email or web address] (ml) Colloids volume administered ( ml) Blood Product volume administered (ml) Total IV fluid infused 60 09/15/24 11:40 [email or web address] Anesthesia Postop Eval I: Summary Notes Anesthesia Complication No 09/15/24 11:40 [email or web address] Anesthesia Complication Comment: Post-operative progress note Anesthesia: Postop Eval II Evaluation Mental status: Awake and Calm Pain Level: 0 nausea: No Vomiting: No Complications Anesthesia Complication: No
== END 2024-09-15 12:05 | disposition home or self-care (01) ==
LOC: EN 09:41 → AC 09:42
PROVIDERS: PCP Family Medicine; Referring Provider Family Medicine; Visit Provider Internal Medicine Gastroenterology
PROC: 0DJD8ZZ Inspection of Lower Intestinal Tract, Via Natural or Artificial Opening Endoscopic (ICD-10-PCS; CPT 45378; principal; 2024-09-15 10:40)
DX: Z12.11 Encounter for screening for malignant neoplasm of colon (principal); Z87.891 Personal history of nicotine dependence; E78.5 Hyperlipidemia, unspecified; I10 Essential (primary) hypertension; K57.90 Diverticulosis of intestine, part unspecified, without perforation or abscess without bleeding; Z86.0100 Personal history of colon polyps, unspecified; D12.4 Benign neoplasm of descending colon; D12.3 Benign neoplasm of transverse colon; D12.5 Benign neoplasm of sigmoid colon; D12.7 Benign neoplasm of rectosigmoid junction; Z79.899 Other long term (current) drug therapy
CPT/HCPCS: 45380; 45385; 88305; A4216; J2405

== ENCOUNTER → 2024-12-27 | Outpatient (CLI) | payer BC, SELFPAY ==
[2024-12-27 11:39] LABS: Cholesterol 143 mg/dL (<=200); High Density Lipoprotein 62 mg/dL; Low Density Lipoprotein Calc. 57 mg/dL; Triglycerides 123 mg/dL; Very Low Density Lipoprotein 25 mg/dL (5-40); cholesterol:hdl ratio screen 2.31
[2024-12-27 12:36] LABS: Alanine Aminotransfer ALT/SGPT 41 U/L (<=34); Albumin, Serum 4.3 g/dL (3.4-4.8); Alkaline Phosphatase 147 U/L (35-104); Bilirubin, Direct 0.18 mg/dL (0.00-0.30); Globulin 2.8 g/dL (2.2-4.2); Total Bilirubin 0.41 mg/dL (0.00-1.30)
[2024-12-27 12:50] LABS: AST(SGOT) 22 U/L (<=31)
== END | disposition home or self-care (01) ==
LOC: MTLAB 07:25
PROVIDERS: PCP Family Medicine; Referring Provider Physician Assistant Medical; Visit Provider Physician Assistant Medical
DX: E78.2 Mixed hyperlipidemia (principal)
CPT/HCPCS: 36415; 80061; 80076

== ENCOUNTER 2025-01-26 15:00 | Outpatient (RCR) | payer BC, SELFPAY ==
--- NOTE | 2025-01-03 09:44 | HP.PTEVAL_ITS ---
Patient's Visit Information Visit Information Visit Information: DAVID OROSCO is a 64 year old F referred to Physical Therapy by Dr. Michell Tirado MD with a diagnosis of KNEE PAIN. Date of Evaluation: 01/03/25 Physical Therapist: Doc Martin PT, Cert MDT, OCS Visit Plan Frequency: 2x /Week Duration: 4 Weeks Plan: PT INTERVENTIONS ROM ,STRENGTHENING BLE ( HIPS) ,FUNCTIONAL STRENGTHENING ,FLEXABILITY AND ACTIVITY MODIFICATION Subjective Subjective: This 64 y/o female presents to physical therapy for bilateral knee pain right > left . Patient has h/o arthroscopy due to meniscectomy right [address] . Patient [address] [place] recommended PT medication and no imaging Patient located global right and left knee thigh and lower leg . Aggravating factors pain with squatting /kneeling ,stairs and uneven surfaces. Alleviating factors ibuproprin ,ice . Patient pain in AM or getting up sitting driving and gets better movingDenies paresthesia/tingling. Sleeping okay. Patient pain affects QOL ,housework . Patient goals to decrease pain. SOCIAL: VOCATION: Retired HOBBIES: lap swimming Pain Right Knee: Pain Intensity (Out of 10): 2 Pain Intensity Range: 10 Left Knee: Pain Intensity (Out of 10): 5 Pain Intensity Range: 10 Objective Objective: POSTURE: bilateral mod knee valgus PALPATION:unremarkable GAIT: reciprocal pattern NEURO: denies paresthesia/tingling AROM: supine knee flexion 0-125 degrees ,0-125 degrees MMT: ( peak force) quads right 25.9 ,left 24.2 ,hamstrings right 26.9 ,left 28.9 ,hip flexion right 23.8 ,left 24.8 ,hip abduction right 21.9 , left hip abduction 23.1 STAIRS: one step at time with rail bilateral Special Tests R Knee Jennifer - Meniscus: Positive R Knee Manny - ACL: Negative R Knee Valgus - MCL: Negative R Knee Varus - LCL: Negative R Knee Patellar Apprehension - PFS: Negative R Knee Patellar Grind - PFS: Positive L Knee Jennifer - Meniscus: Positive L Knee Valgus - MCL: Negative L Knee Varus - LCL: Negative L Knee Patellar Grind - PFS: Positive Balance/Special Test Scores Lower Extremity Functional Score: 41 Goals Goal 1:: Patient to be I with HEP for knees Goal 2:: Patient to demonstrate 50 % improvement with less pain and improved function with gait Goal Time Frame: 4-6 Weeks Goal 3:: Patient to improve LFES score by 5 points to improve function with QOL Goal Time Frame: 4-6 Weeks Goal 4:: Patient to improve peak force hips by 5-10# to improve function and strength Goal Time Frame: 4-6 Weeks Rehabilitation Potential Physical Therapy Diagnosis: Patient has knee pain due to DJD with pain decrease ROM weakness ,hips and quads impairs gait and stairs thus benefit from skilled PT Rehabilitation Potential: Good Anticipated Interventions Patient/Client Instruction: Educate patient on: Condition and Plan of Care For the Purpose of:: To decrease pain, To improve muscle performance and motor function, To increase tolerance to activity/condition/position, To improve ability of physical actions for home/community/work/leisure, To improve health of tissue, To decrease soft tissue restriction, To reduce risk of recurrence and To improve tolerance to ADL's Therapeutic Exercise to Include: Strength training, Postural training, Flexibilty training and Active ROM Comment: BLE -HIPS For the Purpose of:: To decrease pain, To improve muscle performance and motor function, To increase tolerance to activity/condition/position, To improve ability of physical actions for home/community/work/leisure, To improve health of tissue, To decrease soft tissue restriction, To increase flexibility/ROM, To reduce risk of recurrence and To improve tolerance to ADL's TENS: Yes IF ES: Yes Cryotherapy (ice pack, ice massage): Yes Ultrasound (thermal/non thermal): Yes For the Purpose of:: To decrease pain, To improve muscle performance and motor function, To increase tolerance to activity/condition/position, To improve health of tissue and To decrease soft tissue restriction Text: Thank you for the opportunity to evaluate your patient. For Medicare and Medicare HMO plans, please review the plan of care and approve it. It will need to be FAXED BACK to us at [phone] for Medicare purposes. For Medicare only, by signing this I certify the plan of care. Please let me know if there are questions or concerns regarding this plan of care. Physician Signature: Date:_
--- NOTE | 2025-01-26 15:26 | HP.PTDCSUM ---
Discharge Summary D/C summary: It has been my pleasure to treat DAVID OROSCO referred by Dr. Micehll Tirado MD, with the diagnosis of KNEE PAIN for a total of 7 visit(s). Discharge Date: 01/26/25 Please see the following information for a summary of their discharge status. Subjective Subjective: Doing well with ex's Standing up from chair easier Patient able to do steps easier Pain Right Knee: Pain Intensity (Out of 10): 2 Left Knee: Pain Intensity (Out of 10): 2 Overall Improvement % Improvement: 75 Objective Objective/Function: POSTURE: bilateral mod knee valgus PALPATION:unremarkable GAIT: reciprocal pattern NEURO: denies paresthesia/tingling AROM: supine knee flexion 0-125 degrees ,0-125 degrees MMT: ( peak force) quads right 54.9 ,left 54.9 ,hamstrings right 49.8.8 ,left 48.9 ,hip flexion right 34.1 ,left 38.2 ,hip abduction right 28.9 , left hip abduction 29.1 STAIRS: one step at time with rail bilateral Goals Goal 1:: Patient to be I with HEP for knees Goal Progress: Goal Met Goal 2:: Patient to demonstrate 50 % improvement with less pain and improved function with gait Goal Progress: Goal Met Goal 3:: Patient to improve LFES score by 5 points to improve function with QOL Goal Progress: Goal Met Goal 4:: Patient to improve peak force hips by 5-10# to improve function and strength Goal Progress: Goal Met Plan Plan: D/C D/C Information Discharge Comments: HEP d/c sentence: If there are questions or concerns regarding this patient's physical therapy, please feel free to call me at [phone]. Thank you for the referral of this patient. Sincerely, Doc Martin, PT, Cert MDT, OCS Balance/Gait/Functional tests Balance/Special Test Scores Lower Extremity Functional Score: 41 Improvement % Improvement: 75
== END 2025-01-26 19:00 | disposition home or self-care (01) ==
LOC: PT 15:00
PROVIDERS: PCP Family Medicine; Referring Provider Family Medicine; Visit Provider Family Medicine
DX: M25.569 Pain in unspecified knee (principal)
CPT/HCPCS: 97110; 97162; 97530

== ENCOUNTER → 2025-03-14 | Outpatient (CLI) | payer BC, SELFPAY ==
--- NOTE | 2025-03-14 14:45 | BI_ITS ---
EXAM: SCRN MAMM (CAD)W/PHYLICIA BILAT DATE: 03/14/2025 CLINICAL HISTORY: F, Age 64 y/o , SCREENING BREAST CANCER RISK ASSESSMENT: Not reported TECHNIQUE: Bilateral screening digital breast tomosynthesis with 2D and 3D images. Computer aided detection. COMPARISON: Prior exam(s) none available FINDINGS: TISSUE DENSITY: The breast tissue is heterogenously dense, which may obscure small masses. Bilateral Breast Mammographic Findings: Right breast: No suspicious masses, calcifications or other abnormalities are identified. Left breast: There is a mass in the upper-outer left breast mid depth. BI/SCRN MAMM (CAD)W/PHYLICIA BILAT IMPRESSION: OVERALL FINAL ASSESSMENT: BIRADS 0 Incomplete: Need additional imaging evaluati on. RECOMMENDATION: Incomplete: Need additional imaging evaluation with diagnostic left breast mamm ogram and ultrasound. A letter with findings and recommendations will be mailed to the patient. Reading Location: [id number]
== END | disposition home or self-care (01) ==
LOC: OPBI 14:44
PROVIDERS: PCP Family Medicine; Referring Provider Family Medicine; Visit Provider Family Medicine
DX: Z12.31 Encounter for screening mammogram for malignant neoplasm of breast (principal)
CPT/HCPCS: 77063; 77067

== ENCOUNTER → 2025-06-12 | Outpatient (CLI) | payer BC, SELFPAY ==
--- OUTSIDE RECORDS SUMMARY | 2025-06-12 07:10 | XMS RPT_ITS | CCD ---
Author Organization [facility] Care Team Providers Care Reference Archivist Name Role Phone ShirazBritta Vinod Unavailable Swathi Wild Unavailable Unavailable Unavailable Unavailable Shiraz Britta Brock Unavailable Ruba Jacobsen Unavailable Gabe Weinberg Unavailable Ruba Jacobsen Primary Care Provider [phone] INES CH Attending UnavailINES Choi Referring UnavailRUBA Bah Primary Care Unavailable INES CH Attending UnavailINES Choi Referring UnavailRUBA Bah Primary Care Unavailable RUBA JACOBSEN Attending Unavailable RUBA JACOBSEN Referring Unavailable MICHELL TIRADO Primary Care Unavailable Jacquelinemarcia Britta Brock Unavailable Ruba Jacobsen Unavailable Gabe Weinberg Unavailable [phone] Michell Tirado Primary Care Provider Unavailab Ruba Olsen Unavailable Robert Hendricks Unavailable Britta Weldon Unavailable Gabe Weinberg Unavailable Michell Tirado Primary Care Provider Unavailab Britta Dong MD Unavailable [phone] Ruba Jacobsen MD Unavailable [phone] Gabe Weinberg MD Unavailable [phone] Miedel MD, Michell E Primary Care Provider Helen Jacobsen MD, Kristina Unavailable Robert Hendricks MD Unavailable Shiraz WHELAN, Britta Brock Unavailable Amber WHELAN, Kristina Unavailable Lenard WHELAN, Gabe Conway Unavailable Celestino WHELAN, Michell E Primary Care Provider Amber WHELAN, Kristina Unavailable Eladio WHELAN, Robert Sullivan Unavailable Amber WHELAN, Kristina Unavailable [phone] Amber WHELAN, Kristina Unavailable Lenard WHELAN, Gabe Conway Unavailable Amber WHELAN, Kristina Unavailable Eladio WHELAN, Robert Sullivan Unavailable HERMAN TAYLOR Attending Unavailable MIEDEL, MICHELL E Primary Care Unavailable BIBIANA DUPREE Attending Unavailable MIEDEL, MICHELL E Primary Care Unavailable BIBIANA DUPREE Admitting Unavailable BIBIANA DUPREE Referring Unavailable MIEDEL, MICHELL E Primary Care Unavailable BIBIANA DUPREE Attending Unavailable MIEDEL, MICHELL E Primary Care Unavailable KANU PHIPPS Attending Unavailab le MIEDEL, MICHELL E Primary Care Unavailable KANU PHIPPS Attending Unavailab le MIEDEL, IMCHELL E Primary Care Unavailable KANU PHIPPS Attending Unavailab le MIEDEL, MICHELL E Primary Care Unavailable BIBIANA DUPREE Admitting Unavailable MIEDEL, MICHELL E Primary Care Unavailable AYUSH ROTH Attending Unavailable BIBIANA DUPREE Referring Unavailable BIBIANA DUPREE Referring Unavailable MIEDEL, MICHELL E Primary Care Unavailable BIBIANA DUPREE Attending Unavailable MIEDEL, MICHELL E Referring Unavailable MIEDEL, MICHELL E Primary Care Unavailable MIEDEL, MICHELL E Attending Unavailable MIEDEL, MICHELL E Primary Care Unavailable KANU PHIPPS Admitting Unavailab le DESIRE, KANU LUGO Attending Unavailab le MIEDEL, MICHELL E Primary Care Unavailable KANU PHIPPS Attending Unavailab ann PHIPPS, KANU LUGO Referring Unavailab le DUPREE BIBIANA LUCI Referring Unavailable DUPREE, BIBIANA LUCI Admitting Unavailable MIEDEL, MICHELL E Primary Care Unavailable AYUSH ROTH Attending Unavailable DUPREE, BIBIANA LUCI Referring Unavailable DUPREE, BIBIANA LUCI Admitting Unavailable MIEDEL, MICHELL E Primary Care Unavailable AYUSH ROTH Attending Unavailable DUPREE, BIBIANA LUCI Referring Unavailable DUPREE, BIBIANA LUCI Admitting Unavailable MIEDEL, MICHELL E Primary Care Unavailable ISMA HUNTER Attending Unavailable MIEDEL, MICHELL E Primary Care Unavailable DUPREE, BIBIANA LUCI Admitting Unavailable ISMA HUNTER Attending Unavailable DUPREE, BIBIANA LUCI Referring Unavailable Dr. Michell Tirado Primary Care Provider [phone] Dr. Michell Tirado Referring Provider [phone] Kiel GRANTS AND CONTRACTS ASSISTANT, GRANTS AND CONTRACTS ASSISTANT-Yossi Panda Attending Provider [phone] Tom Madden Attending Provider [phone] Dr. Michell Tirado Primary Care Provider [phone] Dr. Michell Tirado Referring Provider Mckinley REED, BRIANNA Brock Attending Provider Unavailable Primary Care Provider UnavailDr. Michell Hernandez Primary Care Provider [phone] Dr. Michell Tirado Referring Provider [phone] MARELY Marina Attending Provider [phone] Michell Tirado Primary Care Provider [phone] Dr. Michell Tirado Referring Provider Curtis GRANTS AND CONTRACTS ASSISTANT, GRANTS AND CONTRACTS ASSISTANTMakaylaC Sophie Attending Provider MARELY Marina Attending Provider Dr. Julius Warren Attending Provider [phone] Celestino WHELAN, Dr. Galarza Primary Care Provider Celestino WHELAN, Dr. Galarza Referring Provider [phone] Zenaida RAPHAEL, Dr. Knox Attending Provider Zenaida RAPHAEL, Dr. Knox Other Provider Keith Kate Attending Provider Jazlyn James Attending Provider Jazlyn James Referring Provider Celestino WHELAN, Dr. Galarza Attending Provider [phone] Celestino WHELAN, Dr. Galarza Primary Care Provider Celestino WHELAN, Dr. Galarza Referring Provider [phone] Celestino WHELAN, Dr. Galarza Attending Provider [phone] Miedel, Michell Attending Unavailable Miedel, Michell Referring Unavailable Miedel, Michell Primary Care Unavailable Miedel, Michell Attending Unavailable Miedel, Michell Referring Unavailable Miedel, Michell Primary Care Unavailable Abilio Estevez Attending Unavailable Miedel, Michell Referring Unavailable Miedel, Michell Primary Care Unavailable Miedel, Michell Attending Unavailable Miedel, Michell Referring Unavailable Miedel, Michell Primary Care Unavailable Miedel, Michell Attending Unavailable Miedel, Michell Primary Care Unavailable Julius Warren Attending Unavailable Miedel, Michell Referring Unavailable Miedel, Michell Primary Care Unavailable Keith Kate Attending Unavailable Miedel, Michell Referring Unavailable Miedel, Michell Primary Care Unavailable Olivia Birmingham Attending Unavailable Miedel, Michell Primary Care Unavailable Abilio Estevez Consulting Unavailable Abilio Estevez Attending Unavailable Miedel, Michell Referring Unavailable Miedel, Michell Primary Care Unavailable Miedel, Michell Primary Care Unavailable [facility] Jim BEE Attending Unavailable Miedel, Michell Referring Unavailable Miedel, Michell Primary Care Unavailable Curtis GRANTS AND CONTRACTS ASSISTANT, Sophie Attending Unavailable Curtis GRANTS AND CONTRACTS ASSISTANT, Sophie Referring Unavailable Nddave Michell Primary Care Unavailable Julius Warren Attending Unavailable Julius Warren Referring Unavailable Mckinley REED, Jazlyn Brock Attending Unavail able Mckinley REED, Jazlyn Brock Referring Unavail able Michell Tirado Primary Care Unavailable MICHELL TIRADO Primary Care Physician CELESTINO MICHELL Primary Care Unavailable SUPPJAMES DPM, ROBERT Marcum Attending Unavailable CELESTINO MICHELL Primary Care Unavailable SUPPJAMES DPM, ROBERT Marcum Attending Unavailable Celestino WHELAN, Dr. Galarza Primary Care Provider [phone] Celestino WHELAN, Dr. Galarza Attending Provider Dr. Michell Tirado MD Referring Provider Scott WHELAN, Dr. Mehta Attending Provider [facility] Jim PITTMAN Attending Provider [phone] Allergies Allergy Classification Reported Allergen(s) Allergy Type Date of Onset Reaction(s) Facility HMG-CoA Reductase Inhibitors (statins) (20 sources) Pravastatin Drug Allergy 8 [facility] (17 sources) Hmg-Coa Reductase Inhibitors (Statins); Translations: [YOAFJCZ-HNS-QF A REDUCTASE INHIBITORS] Propensity to adverse reactions to drug 8 [facility] (20 sources) Pravastatin; Translations: [Unknown] Drug Allergy 9 Severe myalgias [facility] (20 sources) Simvastatin; Translations: [SIMVASTATIN] Drug Allergy 9 Severe myalgias [facility] (12 sources) ezetimibe Drug Allergy 2 Myalgias [place] (1 source) ezetimibe Drug Allergy 5 [place] [facility] (1 source) Simvastatin Drug Allergy 5 [place] [facility] (1 source) HMG-CoA reductase inhibitor; Translations: [statins] Propensity to adverse reactions to drug Muscle weakness (finding) [facility] Medications Current Medications Medication Drug Class(es) Dates Sig (Normalized) Sig (Original) C,E,Zinc,Copper 42-Gfxci3q-Mug (Ocuvite Adult 50 Plus) 250-5-1 mg capsule (11 sources) Start: 12-13-2021 C,E,Zinc,Copper 31-Rrqua1e-Wdl (Ocuvite Adult 50 Plus) 250-5-1 mg capsule Active 1 CAP PO DAILY December 13, 2021 12:11pm Start: 12-13-2021 End: 06-23-2024 C,E,Zinc,Copper 49-Ufnub8i-I ut (Ocuvite Adult 50 Plus) 250-5-1 mg capsule Discontinued 1 NMA PO DAILY December 13, 2021 1:00am June 23, 2024 2:10pm Start: 12-13-2021 C,E,Zinc,Coppe r 17-Gxfzv2k-Umt (Ocuvite Adult 50 Plus) 250-5-1 mg capsule Active 1 CAP PO DAILY December 13, 2021 12:00am Start: 12-13-2021 C,E,Zinc,Coppe r 40-Umqle4z-Sgg (Ocuvite Adult 50 Plus) 250-5-1 mg capsule Active 1 CAP PO DAILY December 13, 2021 1:00am calcium carbonate 1250 mg chewable tablet (12 sources) Start: 12-13-2021 take 1 tablet by mouth once daily Calcium Carbonate (Calcium 500) 500 mg calcium (1,250 mg) tablet,chewable Active 500 mg PO DAILY December 13, 2021 1:00am calcium citrate 950 mg oral tablet (1 source) Start: 06-05-2025 calcium (as ca lcium citrate) 200 mg oral tablet Dose : 200 mg = 1 tab(s), Oral, qDay, # 100 tab(s), 0 Refill(s) Start Date: 06/05/25 Status: Ordered Medication Dispense Status: Completed Quantity: 100.0 Unit: tab(s) Total Allowed Fills: 1 Fills Dispensed: 0 24 hr dilTIAZem hydrochloride 360 mg extended release oral capsule (20 sources) Calcium Channel Juan Luis Start: 10-09-2020 End: 03-30-2025 take 1 capsule by mouth once daily Diltiazem Hcl 360 mg capsule,extended release 24hr Active 360 mg PO DAILY 90 3 March 30, 2025 7:52am Start: 08-29-2020 End: 10-09-2020 take 1 capsule by mouth twice daily Diltiazem Hcl 120 mg capsule,extended release 24hr Discontinued 120 mg PO TWICE A DAY 180 August 29, 2020 4:24pm October 09, 2020 4:09pm this is a dose increase Start: 04-04-2019 diltiazem (CAR DIZEM CD) 120 MG 24 hr capsule Start: 01-26-2019 End: 08-29-2020 take 1 capsule by mouth once daily Diltiazem Hcl 120 mg capsule,extended release 24hr Discontinued 120 mg PO DAILY 30 January 19, 2020 11:11am August 29, 2020 4:25pm DilTIAZem (Eqv-Cardizem CD) 360 mg/24 hours oral capsule, extended release (1 source) Start: 06-05-2025 take 1 capsule by mouth every hour DilTIAZem (Eqv-Cardizem CD) 360 mg/24 hours oral capsule, extended release 0 Refill(s) Start Date: 06/05/25 Status: Ordered Medication Dispense Status: Completed Total Allowed Fills: 1 Fills Dispensed: 0 1 ml evolocumab 140 mg/ml prefilled syringe (14 sources) PCSK9 Inhibitor Start: 06-05-2025 inject 1 dose by subcutaneous injection every other week Repatha Prefilled Syringe 140 mg/mL subcutaneous solution Dose : 140 mg =, Subcutaneous, q2wk, rotate injection sites, # 2 EA, 0 Refill(s) Start Date: 06/05/25 Status: Ordered Medication Dispense Status: Completed Quantity: 2.0 Unit: EA Total Allowed Fills: 1 Fills Dispensed: 0 Start: 06-20-2024 End: 05-29-2025 Evolocumab (Repatha Sureclic k) 140 mg/mL pen injector Active 140 mg SC every 2 weeks 2 May 29, 2025 11:41am Start: 11-27-2023 End: 12-04-2023 Evolocumab (Repatha Sureclic k) 140 mg/mL pen injector Discontinued 140 mg SC every 2 weeks 2 November 27, 2023 1:00am December 04, 2023 10:08am Fish Oils (1 source) Start: 06-05-2025 Fish Oil 1000 mg oral capsule Dose : 1,000 mg = 1 cap(s), Oral, qDay, # 90 cap(s), 0 Refill(s) Start Date: 06/05/25 Status: Ordered Medication Dispense Status: Completed Quantity: 90.0 Unit: cap(s) Total Allowed Fills: 1 Fills Dispensed: 0 Ihkrxjmb-Qfp-Nrnyw-Dkq669-Or al (Sejvsk-Bfyop-Iyx (With Antiox)) 500-500-66.7 mg tablet (20 sources) Start: 01-01-2024 Tvwdfxro-Jgc-A acwu-Ozc239-Zyva (Wsjajg-Cmxxx-Jrg (With Antiox)) 500-500-66.7 mg tablet Active 1 {tbl} PO TWICE A DAY January 01, 2024 11:53am Start: 01-01-2024 Iwfamjqg-Obm-E btnn-Rfi560-Srxm (Xmbxcq-Hghgy-Zkg (With Antiox)) 500-500-66.7 mg tablet Active 1 TABLET PO TWICE A DAY January 01, 2024 11:53am Start: 12-13-2021 Jatxbwen-Icd-J bmkz-Uqw604-Abqe (Lwjgwl-Wovqp-Mll (With Antiox)) 500-500-66.7 mg tablet Active 3 TABLET PO TWICE A DAY December 13, 2021 12:09pm Start: 12-13-2021 End: 01-01-2024 Junfkrko-Iav-Pvmqe-Oen390-Rg al (Dkkvgm-Zipeh-Tbd (With Antiox)) 500-500-66.7 mg tablet Discontinued 3 {tbl} PO TWICE A DAY December 13, 2021 1:00am January 01, 2024 11:54am Start: 12-13-2021 End: 01-01-2024 Ihrlnmig-Rnl-Ubhgf-Hql053-Ty al (Hkhiyp-Prsgg-Sko (With Antiox)) 500-500-66.7 mg tablet Discontinued 3 TABLET PO TWICE A DAY December 13, 2021 1:00am January 01, 2024 11:54am Start: 12-13-2021 Iugumuin-Jmt-P kkfa-Yqr074-Aynp (Jhnvfu-Twwga-Ool (With Antiox)) 500-500-66.7 mg tablet Active 3 TABLET PO TWICE A DAY December 13, 2021 12:00am Start: 12-13-2021 Yndvpowr-Qet-Y uhur-Jsk829-Ltlu (Jsaddb-Wdmmv-Hmq (With Antiox)) 500-500-66.7 mg tablet Active 3 TABLET PO TWICE A DAY December 13, 2021 1:00am glucosamine sulfate 500 mg o ral capsule (20 sources) Start: 06-05-2025 glucosamine 50 0 mg oral capsule Dose : 500 mg = 1 cap(s), Oral, Daily, # 30 cap(s), 0 Refill(s) Start Date: 06/05/25 Status: Ordered Medication Dispense Status: Completed Quantity: 30.0 Unit: cap(s) Total Allowed Fills: 1 Fills Dispensed: 0 Start: 05-10-2018 End: 12-13-2021 take 1 tablet by mouth once daily Glucosamine Sulfate (Glucosamine) 500 mg tablet Discontinued 500 mg PO daily May 10, 2018 12:00am December 13, 2021 12:10pm Start: 09-14-2017 glucosamine vega lfate 2KCl 1,000 mg Tab GLUCOSAMINE HCL TABS 0 09/14/2017 Active Lisinopril (11 sources) Angiotensin Converting Enzyme Inhibitor LISINOPRIL ORAL Take by mouth . 0 Active loratadine 10 mg oral tablet (19 sources) Start: 05-10-2018 take 1 tablet by mouth once daily as needed Loratadine (Claritin) 10 mg tablet Active 10 mg PO daily as needed for allergy symptoms May 10, 2018 12:00am Start: 12-28-2015 End: 02-14-2021 loratadine (CLARITIN LIQUI-G EL) 10 mg cap CLARITIN 10 MG CAPS 0 12/28/2015 02/14/2021 Discontinued (Discontinued by another clinician) metoprolol tartrate 25 mg oral tablet (20 sources) beta-Adrenergic Juan Luis Start: 06-05-2025 Metopr olol Succinate ER 25 mg oral TABLET extended release Dose : 25 mg = 1 tab(s), Oral, qDay, # 30 tab(s), 0 Refill(s) Start Date: 06/05/25 Status: Ordered Medication Dispense Status: Completed Quantity: 30.0 Unit: tab(s) Total Allowed Fills: 1 Fills Dispensed: 0 Start: 12-13-2021 End: 01-06-2025 take 1 tablet by mouth once daily Metoprolol Succinate 25 mg tablet extended release 24 hr Discontinued 25 mg PO DAILY 90 3 January 11, 2024 10:08am January 06, 2025 2:29pm Start: 11-30-2018 End: 01-26-2019 Metoprolol Succinate 25 mg t ablet extended release 24 hr Discontinued 25 mg PO .COMPLEX November 30, 2018 2:16pm January 26, 2019 1:50pm 25 mg PO 12.5 mg in the am and 25 mg at night.; Start: 11-30-2018 End: 01-26-2019 Metoprolol Succinate Discont inued 25 MG PO .COMPLEX November 30, 2018 2:16pm January 26, 2019 1:50pm 25 mg PO 12.5 mg in the am and 25 mg at night.; Start: 12-22-2016 End: 11-30-2018 take 1 tablet by mouth twice daily Metoprolol Succinate 25 mg tablet extended release 24 hr Discontinued 25 mg PO TWICE A DAY 180 4 November 15, 2018 9:27am November 30, 2018 2:17pm omega 9-jni-esv-fish oil (FISH OIL) 300-1,000 mg CpDR (17 sources) Start: 09-14-2017 omega 3-dha-ep a-fish oil (FISH OIL) 300-1,000 mg CpDR Take by mouth . 0 09/14/2017 Active Levering-3 Fatty Acids (Fish Oil Concentrate) 1,000 mg capsule (20 sources) Start: 12-13-2021 take 1 capsule by mouth once daily Levering-3 Fatty Acids (Fish Oil Concentrate) 1,000 mg capsule Active 1000 mg PO DAILY December 13, 2021 12:11pm Start: 12-13-2021 take 1 capsule by mo ut once daily Levering-3 Fatty Acids (Fish Oil Concentrate) 1,000 mg capsule Active 1000 MG PO DAILY December 13, 2021 11:11am Start: 12-13-2021 take 1 capsule by mo uth once daily Levering-3 Fatty Acids (Fish Oil Concentrate) 1,000 mg capsule Active 1000 MG PO DAILY December 13, 2021 12:11pm Start: 10-09-2020 End: 12-13-2021 take 1 capsule by mouth twice daily Levering-3 Fatty Acids (Fish Oil Concentrate) 1,000 mg capsule Discontinued 1000 MG PO TWICE A DAY October 09, 2020 3:40pm December 13, 2021 12:12pm Start: 10-09-2020 End: 12-13-2021 take 1 capsule by mouth twice daily Levering-3 Fatty Acids (Fish Oil Concentrate) 1,000 mg capsule Discontinued 1000 mg PO TWICE A DAY October 09, 2020 1:00am December 13, 2021 12:12pm Start: 10-09-2020 End: 12-13-2021 take 1 capsule by mouth twice daily Levering-3 Fatty Acids (Fish Oil Concentrate) 1,000 mg capsule Discontinued 1000 MG PO TWICE A DAY October 09, 2020 12:00am December 13, 2021 11:12am Start: 10-09-2020 End: 12-13-2021 take 1 capsule by mouth twice daily Levering-3 Fatty Acids (Fish Oil Concentrate) 1,000 mg capsule Discontinued 1000 MG PO TWICE A DAY October 09, 2020 1:00am December 13, 2021 12:12pm Start: 05-10-2018 End: 11-30-2018 take 1 capsule by mouth once daily Levering-3 Fatty Acids (Fish Oil Concentrate) 1,000 mg capsule Discontinued 1000 MG PO daily May 10, 2018 8:23am November 30, 2018 2:17pm Start: 05-10-2018 End: 11-30-2018 take 1 capsule by mouth once daily Levering-3 Fatty Acids (Fish Oil Concentrate) 1,000 mg capsule Discontinued 1000 mg PO daily May 10, 2018 12:00am November 30, 2018 2:17pm Start: 05-10-2018 End: 11-30-2018 take 1 capsule by mouth once daily Levering-3 Fatty Acids (Fish Oil Concentrate) 1,000 mg capsule Discontinued 1000 MG PO daily May 09, 2018 11:00pm November 30, 2018 1:17pm Start: 05-10-2018 End: 11-30-2018 take 1 capsule by mouth once daily Levering-3 Fatty Acids (Fish Oil Concentrate) 1,000 mg capsule Discontinued 1000 MG PO daily May 10, 2018 12:00am November 30, 2018 2:17pm Pediatric Multivitamin (8 sources) Start: 12-13-2021 take 1 tablet by mouth once daily Pediatric Multivitamin Active 1 TABLET PO DAILY December 13, 2021 12:12pm Start: 12-13-2021 End: 08-06-2022 take 1 tablet by mouth once daily Pediatric Multivitamin Discontinued 1 TABLET PO DAILY December 13, 2021 12:00am August 06, 2022 10:05am Start: 12-13-2021 End: 08-06-2022 take 1 tablet by mouth once daily Pediatric Multivitamin Discontinued 1 TABLET PO DAILY December 13, 2021 1:00am August 06, 2022 11:05am Turmeric Root Extract (12 sources) Start: 12-13-2021 take 1000 mg by mouth twice daily Turmeric Root Extract Active 1000 MG PO TWICE A DAY December 13, 2021 12:10pm Start: 12-13-2021 End: 06-23-2024 take 1 capsule by mouth twice daily Turmeric Root Extract 500 mg capsule Discontinued 1000 mg PO TWICE A DAY December 13, 2021 1:00am June 23, 2024 2:10pm Start: 12-13-2021 take 1000 mg by mout h twice daily Turmeric Root Extract Active 1000 MG PO TWICE A DAY December 13, 2021 12:00am Start: 12-13-2021 take 1000 mg by mout h twice daily Turmeric Root Extract Active 1000 MG PO TWICE A DAY December 13, 2021 1:00am Completed/Discontinued Medications Medication Drug Class(es) Dates Sig (Normalized) Sig (Original) 1 ml alirocumab 75 mg/ml auto-injector (16 sources) PCSK9 Inhibitor Start: 12-04-2023 End: 12-15-2023 Alirocumab (Praluent Pen) 75 mg/mL pen injector Discontinued 75 mg SC Q14D 2 December 04, 2023 12:00pm December 15, 2023 12:19pm amoxicillin 875 mg / clavulanate 125 mg oral tablet (4 sources) Penicillin-class Antibacterial Start: 12-20-2024 End: 06-06-2025 Amoxicillin-Pot Clavulanate 875-125 mg tablet Discontinued 1 {tbl} PO TWICE A DAY 20 0 December 20, 2024 1:00am June 06, 2025 9:06am aspirin 81 mg delayed release oral tablet (20 sources) Platelet Aggregation Inhibitor, Nonsteroidal Anti-inflammatory Drug Start: 07-21-2024 End: 09-13-2024 take 1 tablet by mouth once daily Aspirin (Adult Aspirin Regimen) 81 mg tablet,delayed release (DR/EC) Discontinued 81 mg PO daily July 21, 2024 12:00am September 13, 2024 10:38am Start: 07-05-2021 End: 08-04-2021 take 1 tablet by mouth twice daily aspirin 81 MG EC tablet Take 1 (one) tablet (81 mg total) by mouth 2 (two) times a day . 60 tablet 0 07/05/2021 08/04/2021 Active Start: 03-03-2016 End: 06-23-2024 take 1 tablet by mouth once daily Aspirin 81 mg tablet,delayed release (DR/EC) Discontinued 81 mg PO daily May 10, 2018 12:00am June 23, 2024 2:07pm benzonatate 200 mg oral capsule (4 sources) Non-narcotic Antitussive Start: 12-20-2024 End: 06-06-2025 take 1 capsule by mouth three times daily as needed for cough Benzonatate 200 mg capsule Discontinued 200 mg PO THREE TIMES A DAY as needed for cough 20 0 December 20, 2024 1:00am June 06, 2025 9:06am C,E,Copper,Zinc 58-Zalpj3q-Xod (Ocuvite Adult 50 Plus) 250-5-1 mg capsule (1 source) Start: 12-13-2021 End: 06-23-2024 C,E,Copper,Zinc 82-Sqhof5k-Ilz (Ocuvite Adult 50 Plus) 250-5-1 mg capsule Discontinued 1 NMA PO DAILY December 13, 2021 1:00am June 23, 2024 2:10pm calcium carbonate 600 mg / cholecalciferol 0.01 mg oral tablet (12 sources) Vitamin D Start: 10-09-2020 End: 12-13-2021 Calcium Carbonate-Vit D3-Min 600 mg calcium- 400 unit tablet Discontinued 1 {tbl} PO DAILY October 09, 2020 1:00am December 13, 2021 12:12pm Start: 10-09-2020 End: 12-13-2021 take 1 tablet by mouth once daily Calcium Carbonate-Vit D3-Min Discontinued 1 TABLET PO DAILY October 09, 2020 1:00am December 13, 2021 12:12pm cholecalciferol 0.05 mg oral tablet (12 sources) Vitamin D Start: 02-04-2018 End: 10-09-2020 take 1 tablet by mouth once daily Cholecalciferol (Vitamin D3) 2,000 unit tablet Discontinued 2000 U PO daily 30 February 04, 2018 12:00am October 09, 2020 3:41pm Take with Pravastatin to reduce muscle aches ezetimibe 10 mg oral tablet (12 sources) Dietary Cholesterol Absorption Inhibitor Start: 11-30-2018 End: 04-02-2020 take 1 tablet by mouth once daily Ezetimibe (Zetia) 10 mg tablet Discontinued 10 mg PO DAILY 30 November 30, 2018 1:00am April 02, 2020 10:52am gemfibrozil 600 mg oral tablet (20 sources) Peroxisome Proliferator Receptor alpha Agonist Start: 04-02-2020 End: 02-14-2021 take 1 tablet by mouth twice daily Gemfibrozil 600 mg tablet Discontinued 600 mg PO TWICE A DAY 60 April 02, 2020 12:00am October 09, 2020 3:41pm Start: 04-19-2018 End: 05-11-2018 Gemfibrozil 600 mg tablet Di scontinued 600 mg PO TWICE A DAY 60 April 19, 2018 12:00am May 11, 2018 1:27pm administer 30 minutes before morning and evening meals Inclisiran (8 sources) Start: 12-15-2023 End: 01-01-2024 Inclisiran (Leqvio) 284 mg/1 .5 mL syringe Discontinued 284 mg SC every 6 months 1.5 December 15, 2023 1:00am January 01, 2024 11:54am to be given at [facility] Start: 12-15-2023 End: 01-01-2024 Inclisiran (Leqvio) 284 mg/1 .5 mL syringe Discontinued 284 mg SC every 6 months 1.December 15, 2023 1:00am January 01, 2024 11:54am Start: 12-15-2023 End: 01-01-2024 Inclisiran (Leqvio) 284 mg/1 .5 mL syringe Discontinued 284 MG SC every 6 months .December 15, 2023 1:00am January 01, 2024 11:54am losartan potassium 25 mg oral tablet (20 sources) Angiotensin 2 Receptor Juan Luis Start: 04-02-2020 End: 01-06-2025 take 1 tablet by mouth twice daily Losartan 25 mg tablet Discontinued 25 mg PO TWICE A DAY 180 3 January 11, 2024 10:08am January 06, 2025 2:29pm Start: 11-04-2017 End: 02-14-2021 take 1 tablet by mouth once daily Losartan 25 mg tablet Discontinued 25 mg PO daily 90 3 September 19, 2019 10:09am April 02, 2020 11:05am magnesium oxide 400 mg oral capsule (12 sources) Start: 12-13-2021 End: 09-13-2024 take 1 capsule by mouth every other day Magnesium Oxide 400 mg magnesium capsule Discontinued 400 mg PO every other day December 13, 2021 1:00am September 13, 2024 10:39am medroxyPROGESTERone acetate 10 mg oral tablet (16 sources) Progestin Start: 06-06-2019 End: 02-14-2021 take 1 tablet by mouth once daily Medroxyprogesterone 10 mg tablet Discontinued 10 mg PO .COMPLEX July 04, 2019 12:00am October 09, 2020 3:41pm 10 mg PO daily for 10 days per month; mometasone furoate 0.05 mg/actuat metered dose nasal spray (17 sources) Corticosteroid Start: 05-10-2018 End: 05-11-2018 Mometasone (Nasonex) 50 mcg/actuation spray,non-aerosol Discontinued 2 NMA INTRANASAL daily May 10, 2018 12:00am May 11, 2018 1:27pm Start: 05-10-2018 End: 05-11-2018 Mometasone (Nasonex) 50 mcg/ actuation spray,non-aerosol Discontinued 2 SPRAY INTRANASAL daily May 10, 2018 12:00am May 11, 2018 1:27pm Start: 12-28-2015 End: 02-14-2021 mometasone (NASONEX) 50 mcg/ actuation nasal spray mometasone NASONEX 50 MCG/ACT SUSP Take as directed MOMETASONE FUROATE [id number] Jazlyn Mello RN 12-28-2015 [facility] [id number]) 0 12/28/2015 02/14/2021 Discontinued (Discontinued by another clinician) Multivitamin (Daily Multi-Vitamin) tablet (11 sources) Start: 08-06-2022 End: 06-06-2025 Multivitamin (Daily Multi-Vitamin) tablet Discontinued 1 {tbl} PO DAILY August 06, 2022 12:00am June 06, 2025 9:06am Start: 08-06-2022 Multivitamin ( Daily Multi-Vitamin) tablet Active 1 {tbl} PO DAILY August 06, 2022 12:00am Start: 08-06-2022 take 1 tablet by alex th once daily Multivitamin (Daily Multi-Vitamin) tablet Active 1 TABLET PO DAILY August 05, 2022 11:00pm Start: 08-06-2022 take 1 tablet by alex th once daily Multivitamin (Daily Multi-Vitamin) tablet Active 1 TABLET PO DAILY August 06, 2022 12:00am Multivitamin preparation (8 sources) Start: 10-09-2020 End: 12-13-2021 take 1 tablet by mouth once daily Multivitamin Discontinued 1 TABLET PO DAILY October 09, 2020 3:40pm December 13, 2021 12:11pm Start: 10-09-2020 End: 12-13-2021 take 1 tablet by mouth once daily Multivitamin Discontinued 1 TABLET PO DAILY October 09, 2020 12:00am December 13, 2021 11:11am Start: 10-09-2020 End: 12-13-2021 take 1 tablet by mouth once daily Multivitamin Discontinued 1 TABLET PO DAILY October 09, 2020 1:00am December 13, 2021 12:11pm Multivitamin tablet (4 sources) Start: 10-09-2020 End: 12-13-2021 Multivitamin tablet Discontinued 1 {tbl} PO DAILY October 09, 2020 1:00am December 13, 2021 12:11pm Pediatric Multivitamin tablet,chewable (4 sources) Start: 12-13-2021 End: 08-06-2022 Pediatric Multivitamin tablet,chewable Discontinued 1 {tbl} PO DAILY December 13, 2021 1:00am August 06, 2022 11:05am pravastatin sodium 20 mg oral tablet (12 sources) HMG-CoA Reductase Inhibitor Start: 02-04-2018 End: 04-19-2018 take 1 tablet by mouth at bedtime Pravastatin 20 mg tablet Discontinued 20 mg PO AT BEDTIME 30 February 04, 2018 12:00am April 19, 2018 1:32pm simvastatin 20 mg oral tablet (20 sources) HMG-CoA Reductase Inhibitor Start: 10-02-2016 End: 02-14-2021 take 1 tablet by mouth once daily in the evening Simvastatin 20 mg tablet Discontinued 20 mg PO EVERY EVENING 90 3 November 11, 2017 9:33am February 04, 2018 2:53pm 1 ml triamcinolone acetonide 40 mg/ml injection (1 source) Corticosteroid Start: 02-14-2021 End: 02-14-2021 triamcinolone acetonide (KENALOG-40) injection 40 mg Problems Active Problems Problem Classification Problem Date Documented Date Episodic/Chronic Cardiac dysrhythmias (20 sources) Ventricular premature complex; 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 will resume exercises. toilet q2-3 hours. limit caffiene Joint disorders and dislocations; trauma-related (20 sources) [...] Onset: 06-01-2018 06-01-2018 Chronic Nonmalignant breast conditions (20 sources) Breast lump; Translations: [Breast finding ] Onset: 08-27-2024 01-01-2024 Episodic Osteoarthritis (18 sources) Osteoarthritis of right knee joint; Translations: [Unilateral primary osteoarthritis, right knee] Onset: 02-27-2021 Chronic Other circulatory disease (13 sources) History of paroxysmal atrial tachycardia; Translations: [Personal history of other diseases of the circulatory system] 10-09-2020 Episodic Other circulatory disease (6 sources) Personal history of other diseases of the circulatory system; Translations: [Personal history of other diseases of circulatory system] Episodic Other connective tissue disease (12 sources) Cramp in lower limb; Translations: [Cramp and spasm] 12-12-2021 Episodic Other diseases of bladder and urethra (8 sources) Neurogenic bladder; Translations: [Neuromuscular dysfunction of bladder, unspecified] 01-01-2024 Chronic Other non-traumatic joint disorders (1 source) Pain in unspecified knee; Translations: [Pain in unspecified knee] Onset: 01-27-2025 Episodic Other screening for suspected conditions (not mental disorders or infectious disease) (8 sources) Patient encounter status; Translations: [Encounter for screening for malignant neoplasm of colon] Onset: 09-26-2024 07-21-2024 Episodic Other upper respiratory infections (1 source) Sore throat symptom; Translations: [Acute pharyngitis, unspecified] Episodic Residual codes; unclassified (12 sources) Obstructive sleep apnea syndrome; Translations: [Obstructive sleep apnea (adult) (pediatric)] 11-25-2018 Chronic Comment on above: per at home sleep st [facility] 06/07/18 Residual codes; unclassified (1 source) Obstructive sleep apnea (adult) (pediatric); Translations: [Obstructive sleep apnea (adult)(pediatric)] Chronic Residual codes; unclassified (2 sources) History of arthroscopy of knee joint; Translations: [Other specified postprocedural states] Episodic Residual codes; unclassified (8 sources) Other specified health status; Translations: [Statin intolerance] 12-04-2023 Episodic Syncope (12 sources) Near syncope; Translations: [Syncope and collapse] 10-09-2020 Episodic Unclassified (1 source) Patient encounter status; Translations: [Visit for screening mammogram] Past or Other Problems Problem Classification Problem Date Documented Da te Episodic/Chronic Other and unspecified benign neoplasm (1 source) Leiomyoma; Translations: [Fibroids] Episodic Results Test Name Value Interpretation Reference Range Facility .Auto Diffon 06-05-2025 Basophil, Absolute 0.0 10 3/mcL Normal 0.0-0.3 [facility] [place] Comment on above: Performed By: #### B MP, GFR, CBC, ANEU, ADIFF #### [address] [address] Basophils/100 WBC (Bld) 1.2 % Normal 0.0-2.5 [facility] Comment on above: Performed By: #### B MP, GFR, CBC, ANEU, ADIFF #### [address] [address] Eosinophil, Absolute 0.2 10 3/mcL Normal 0.0-0.7 [facility] Comment on above: Performed By: #### B MP, GFR, CBC, ANEU, ADIFF #### [address] [address] Eosinophils/100 WBC (Bld) 6.1 % High 0.0-6.0 [facility] Comment on above: Performed By: #### B MP, GFR, CBC, ANEU, ADIFF #### [address] [address] Lymphocyte, Absolute 1.4 10 3/mcL Normal 0.9-4.3 [facility] Comment on above: Performed By: #### B MP, GFR, CBC, ANEU, ADIFF #### [address] [address] Lymphocytes/100 WBC (Bld) 33.9 % Normal 20.0-40.0 [facility] Comment on above: Performed By: #### B MP, GFR, CBC, ANEU, ADIFF #### [address] [address] Monocyte, Absolute 0.3 10 3/mcL Normal 0.1-1.4 [facility] [place] Comment on above: Performed By: #### B MP, GFR, CBC, ANEU, ADIFF #### [address] [address] Monocytes/100 WBC (Bld) 7.8 % Normal 2.0-13.0 [facility] Comment on above: Performed By: #### B MP, GFR, CBC, ANEU, ADIFF #### [address] [address] Neutrophils/100 WBC (Bld) 51.0 % Normal 50.0-75.0 [facility] Comment on above: Performed By: #### B MP, GFR, CBC, ANEU, ADIFF #### [address] [address] .GFRon 06-05-2025 Estimated Glomerular Filtration Rate 100 ml/min/1.73sqm Normal [facility] Comment on above: Result Comment: Stages of Chronic Kidney Disease (CKD) Stage Description eGFR(ml/min/1.73 sq.m.) CKD 1 Normal kidney function or >=90 normal kindney function with possible kidney damage (ex. Proteinuria) CKD 2 Kidney damage with mild loss 60-89 of kidney function CKD 3a Mild to moderate loss of kidney 45-59 function CKD 3b Moderate to severe loss of 30-44 of kindey function CKD 4 Severe loss of kidney function 15-29 CKD 5 Kidney failure <15 Note: (go live 2024) the eGFR calculation was updated to the 2020 CKD-EPI creatinine equation without a race factor to calculate the eGFR results. Performed By: #### B MP, GFR, CBC, ANEU, ADIFF #### [address] [address] .NEUABSon 06-05-2025 Neutrophil, Absolute 2.1 10 3/mcL Low 2.3-8.1 [facility] Comment on above: Performed By: #### B MP, GFR, CBC, ANEU, ADIFF #### [address] [address] BMPon 06-05-2025 BUN/Creatinine Ratio 18 ratio Normal 7-27 [facility] [place] Comment on above: Performed By: #### B MP, GFR, CBC, ANEU, ADIFF #### [address] [place], [place] [address] Calcium [Mass/Vol] 9.5 mg/dL Normal 8.4-10.2 [facility] Comment on above: Performed By: #### B MP, GFR, CBC, ANEU, ADIFF #### [address] [address] Chloride [Moles/Vol] 106 mmol/L Normal 98-107 [facility] [place] Comment on above: Performed By: #### B MP, GFR, CBC, ANEU, ADIFF #### [address] [address] CO2 [Moles/Vol] 32 mmol/L High 23-31 [facility] Comment on above: Performed By: #### B MP, GFR, CBC, ANEU, ADIFF #### [address] [address] Creatinine [Mass/Vol] 0.62 mg/dL Normal 0.51-0.95 [facility] Comment on above: Performed By: #### B MP, GFR, CBC, ANEU, ADIFF #### [address] [address] Electrolyte Balance 6.0 mEq/L Normal 4.0-15.0 [facility] Comment on above: Performed By: #### B MP, GFR, CBC, ANEU, ADIFF #### [address] [address] Glucose [Mass/Vol] 94 mg/dL Normal 80-115 [facility] Comment on above: Performed By: #### B MP, GFR, CBC, ANEU, ADIFF #### [address] [address] Potassium [Moles/Vol] 4.2 mmol/L Normal 3.5-5.1 [facility] Comment on above: Performed By: #### B MP, GFR, CBC, ANEU, ADIFF #### [address] [address] Sodium [Moles/Vol] 144 mmol/L Normal 136-145 [facility] Comment on above: Performed By: #### B MP, GFR, CBC, ANEU, ADIFF #### [address] [address] Urea nitrogen [Mass/Vol] 11 mg/dL Normal 7-18 [facility] Comment on above: Performed By: #### B MP, GFR, CBC, ANEU, ADIFF #### [address] [address] CBCon 06-05-2025 Erythrocyte distribution width (RBC) [Ratio] 12.9 % Normal 11.5-15.5 [facility] Comment on above: Order Comment: Pre-A dmission Testing Performed By: #### B MP, GFR, CBC, ANEU, ADIFF #### [address] [address] Hematocrit (Bld) [Volume fraction] 41.8 % Normal 34.0-46.0 [facility] Comment on above: Order Comment: Pre-A dmission Testing Performed By: #### B MP, GFR, CBC, ANEU, ADIFF #### [address] [address] Hgb 14.3 G/dL Normal 12.0-16.0 [facility] Comment on above: Order Comment: Pre-A dmission Testing Performed By: #### B MP, GFR, CBC, ANEU, ADIFF #### [address] [address] MCH (RBC) [Entitic mass] 31.7 pg Normal 27.0-33.0 [facility] Comment on above: Order Comment: Pre-A dmission Testing Performed By: #### B MP, GFR, CBC, ANEU, ADIFF #### [address] [address] MCHC 34.2 G/dL Normal 32.0-36.0 [facility] Comment on above: Order Comment: Pre-A dmission Testing Performed By: #### B MP, GFR, CBC, ANEU, ADIFF #### [address] [address] MCV (RBC) [Entitic vol] 92.7 fL Normal 80.0-99.0 [facility] Comment on above: Order Comment: Pre-A dmission Testing Performed By: #### B MP, GFR, CBC, ANEU, ADIFF #### [address] [address] Platelet 234 10 3/mcL Normal 150-450 [facility] Comment on above: Order Comment: Pre-A dmission Testing Performed By: #### B MP, GFR, CBC, ANEU, ADIFF #### [address] [address] Platelet mean volume (Bld) [Entitic vol] 8.7 fL Normal 6.6-10.5 [facility] Comment on above: Order Comment: Pre-A dmission Testing Performed By: #### B MP, GFR, CBC, ANEU, ADIFF #### [address] [address] RBC 4.50 10 6/mcL Normal 4.10-5.30 [facility] Comment on above: Order Comment: Pre-A dmission Testing Performed By: #### B MP, GFR, CBC, ANEU, ADIFF #### [address] [address] WBC 4.1 10 3/mcL Low 4.5-10.8 [facility] Comment on above: Order Comment: Pre-A dmission Testing Performed By: #### B MP, GFR, CBC, ANEU, ADIFF #### [address] [address] LABORATORYOrdered By: SYSTEM SYSTEM on 06-05-2025 Basophils (Bld) [#/Vol] 0.0 103/mcL Normal 0.0 - 0.3 10^3/mcL AO Workflow SS Basophils/100 WBC (Bld) 1.2 % Normal 0.0 - 2.5 % AO Workflow SS Calcium [Mass/Vol] 9.5 mg/dL Normal 8.4 - 10. 2 mg/dL AO ADM SS Chloride [Moles/Vol] 106 mmol/L Normal 98 - 10 7 mmol/L AO ADM SS CO2 [Moles/Vol] 32 mmol/L High 23 - 31 mmol/L AO ADM SS Creatinine [Mass/Vol] 0.62 mg/dL Normal 0.51 - 0.95 mg/dL AO ADM SS Electrolyte Balance 6.0 mEq/L Normal 4.0 - 15 .0 mEq/L AO ADM SS Eosinophil, Absolute 0.2 103/mcL Normal 0.0 - 0 .7 10^3/mcL AO Workflow SS Eosinophils/100 WBC (Bld) 6.1 % High 0.0 - 6.0 % AO Workflow SS Erythrocyte distribution width (RBC) [Ratio] 12.9 % Normal 11.5 - 15.5 % AO Workflow SS Estimated Glomerular Filtration Rate 100 ml/min/1.73sqm Invalid Interpretation Code AO Chemistry S Comment on above: Interpretive Data: Stages of Chronic Kidney Disease (CKD) Stage Description eGFR(ml/min/1.73 sq.m.) CKD 1 Normal kidney function or >=90 normal kindney function with possible kidney damage (ex. Proteinuria) CKD 2 Kidney damage with mild loss 60-89 of kidney function CKD 3a Mild to moderate loss of kidney 45-59 function CKD 3b Moderate to severe loss of 30-44 of kindey function CKD 4 Severe loss of kidney function 15-29 CKD 5 Kidney failure <15 Note: (go live 2024) the eGFR calculation was updated to the 2020 CKD-EPI creatinine equation without a race factor to calculate the eGFR results. Glucose [Mass/Vol] 94 mg/dL Normal 80 - 115 mg/dL AO ADM SS Hematocrit (Bld) [Volume fraction] 41.8 % Normal 34.0 - 46.0 % AO Workflow SS Hemoglobin (Bld) [Mass/Vol] 14.3 G/dL Normal 12.0 - 16.0 G/dL AO Workflow SS Lymphocytes (Bld) [#/Vol] 1.4 103/mcL Normal 0.9 - 4.3 10^3/mcL AO Workflow SS Lymphocytes/100 WBC (Bld) 33.9 % Normal 20.0 - 40.0 % AO Workflow SS MCH (RBC) [Entitic mass] 31.7 pg Normal 27. 0 - 33.0 pg AO Workflow SS MCHC 34.2 G/dL Normal 32.0 - 36.0 G/dL AO Workflow SS MCV (RBC) [Entitic vol] 92.7 fL Normal 80.0 - 99.0 fL AO Workflow SS Monocytes (Bld) [#/Vol] 0.3 103/mcL Normal 0.1 - 1.4 10^3/mcL AO Workflow SS Monocytes/100 WBC (Bld) 7.8 % Normal 2.0 - 13.0 % AO Workflow SS Neutrophils (Bld) [#/Vol] 2.1 103/mcL Low 2.3 - 8.1 10^3/mcL AO Workflow SS Neutrophils/100 WBC (Bld) 51.0 % Normal 50.0 - 75.0 % AO Workflow SS Platelet mean volume (Bld) [Entitic vol] 8.7 fL Normal 6.6 - 10.5 fL AO Workflow SS Platelets (Bld) [#/Vol] 234 103/mcL Normal 150 - 450 10^3/mcL AO Workflow SS Potassium [Moles/Vol] 4.2 mmol/L Normal 3.5 - 5.1 mmol/L AO ADM SS RBC (Bld) [#/Vol] 4.50 106/mcL Normal 4.10 - 5.3 0 10^6/mcL AO Workflow SS Sodium [Moles/Vol] 144 mmol/L Normal 136 - 145 mmol/L AO ADM SS Urea nitrogen [Mass/Vol] 11 mg/dL Normal 7 - 18 mg/d L AO ADM SS Urea nitrogen/Creatinine [Mass ratio] 18 ratio Normal 7 - 27 ratio AO ADM SS WBC (Bld) [#/Vol] 4.1 103/mcL Low 4.5 - 10.8 10^3/mcL AO Workflow SS Breast imaging reportOrdered By: Abby Kirkland on 03-14-2025 Study report [facility] Imaging Services [address] [place] [id number] SCRN MAMM (CAD)W/WEST BILAT MR#: [id number] Acct: [id number] Name: DAVID OROSCO Rep #: [id number] : 1960 F 64 From: Marquis Rivas MD PCP: Dr. Michell Tirado MD Status: [facility] Study:SCRN MAMM (CAD)W/WEST BILAT Date of Exa m: 03/14/25 Exam# [id number] Ordering Dr: Farzad Tirado MD EXAM: SCRN MAMM (CAD)W/WEST BILAT DATE: 03/14/2025 CLINICAL HISTORY: F, Age 64 y/o , SCREENING BREAST CANCER RISK ASSESSMENT: Not reported TECHNIQUE: Bilateral screening digital breast tomosynthesis with 2D and 3D images. Computeraided detection. COMPARISON: Prior exam(s) none available FINDINGS: TISSUE DENSITY: The breast tissue is heterogenously dense, which may obscure small masses. Bilateral Breast Mammographic Findings: Right breast: No suspicious masses, calcifications or other abnormalities are identified. Left breast: There is a mass in the upper-outer left breast mid depth. BI/SCRN MAMM (CAD)W/WEST BILAT IMPRESSION: OVERALL FINAL ASSESSMENT: BIRADS 0 Incomplete: Need additional imaging evaluation. RECOMMENDATION: Incomplete: Need additional imaging evaluation with diagnostic left breast mammogram and ultrasound. A letter with findings and recommendations will be mailed to the patient. Reading Location: [facility] CC: Dr. Michell Tirado MD ~ Pipe Threader: Signed [place] SCRN MAMM (CAD)W/WEST BILATo n 03-14-2025 SCRN MAMM (CAD)W/WEST BILAT [facility] Imaging Services [address] [place] [id number] SCRN MAMM (CAD)W/WEST BILAT MR#: [id number] Acct: [id number] Name: DAVID OROSCO Rep #: [id number] : 1960 F 64 From: Abby Golden i, MD PCP: Dr. Michell Tirado MD Status: [facility] Study: SCRN MAMM (CAD)W/WEST BILAT Date of Exam: 02/24 Exam# [id number] Ordering Dr: Michell Tirado MD ADDENDUM by Dr. Abby Rivas MD on 03/31/25 at 0036 Prior breast examinations are now available for comparison. The described mass in the upper-outer left breast mid depth was present and stable from prior exams dating back to 2021 and considered benign given long-term stability. No additional diagnostic imaging is needed. No mammographic evidence of malignancy in either breast. BI-RADS category 2 benign finding Recommend annual screening mammography bilaterally in 1 year. Reading Location: [id number] 03/31/25 0036 Date cc: Dr. Michell Tirado MD * Signed EXAM: SCRN MAMM (CAD)W/WEST BILAT DATE: 03/14/2025 CLINICAL HISTORY: F, Age 64 y/o , SCREENING BREAST CANCER RISK ASSESSMENT: Not reported TECHNIQUE: Bilateral screening digital breast tomosynthesis with 2D and 3D images. Computer aided detection. COMPARISON: Prior exam(s) none available FINDINGS: TISSUE DENSITY: The breast tissue is heterogenously dense, which may obscure small masses. Bilateral Breast Mammographic Findings: Right breast: No suspicious masses, calcifications or other abnormalities are identified. Left breast: There is a mass in the upper-outer left breast mid depth. BI/SCRN MAMM (CAD)W/WEST BILAT IMPRESSION: OVERALL FINAL ASSESSMENT: BIRADS 0 Incomplete: Need additional imaging evaluation. RECOMMENDATION: Incomplete: Need additional imaging evaluation with diagnostic left breast mammogram and ultrasound. A letter with findings and recommendations will be mailed to the patient. Reading Location: [id number] CC: Dr. Michell Tirado MD Pipe Threader: Signed Normal [place] PT D/C Summary (1)on 025 PT D/C Summary (1) [facility] [address] [place] [address] [address] [place] [address] / REHABILITATION SERVICES DISCHARGE SUMMARY MR#: [id number] Acct: [id number] Name: DAVID OROSCO Rep #: [id number] : 1960 64 From: Doc Martin PT, Cert. T, [facility] Referring DrMarianne: Dr. Michell Tiardo MD Status: RE G RCR Insurance: [facility] PACK[employer] PLAN Discharge Summary D/C summary: It has been my pleasure to treat DAVID OROSCO referred by Dr. Michell Tirado MD, with the diagnosis of KNEE PAIN for a total of 7 visit(s). Discharge Date: 01/26/25 Please see the following information for a summary of their discharge status. Subjective Subjective: Doing well with ex's Standing up from chair easier Patient able to do steps easier Pain Right Knee: Pain Intensity (Out of 10): 2 Left Knee: Pain Intensity (Out of 10): 2 Overall Improvement % Improvement: 75 Objective Objective/Function: POSTURE: bilateral mod knee valgus PALPATION:unremarka ble GAIT: reciprocal pattern NEURO: denies paresthesia/tinglin g AROM: supine knee flexion 0-125 degrees ,0-125 degrees MMT: ( peak force) quads right 54.9 ,left 54.9 ,hamstrings right 49.8.8 ,left 48.9 ,hip flexion right 34.1 ,left 38.2 ,hip abduction right 28.9 , left hip abduction 29.1 STAIRS: one step at time with rail bilateral Goals Goal 1:: Patient to be I with HEP for knees Goal Progress: Goal Met Goal 2:: Patient to demonstrate 50 % improvement with less pain and improved function with gait Goal Progress: Goal Met Goal 3:: Patient to improve LFES score by 5 points to improve function with QOL Goal Progress: Goal Met Goal 4:: Patient to improve peak force hips by 5-10# to improve function and strength Goal Progress: Goal Met Plan Plan: D/C D/C Information Discharge Comments: HEP d/c sentence: If there are questions or concerns regarding this patient's physical therapy, please feel free to call me at [phone]. Thank you for the referral of this patient. Sincerely, Doc Martin PT, Cert MDT, OCS Balance/Gait/Functi onal tests Balance/Special Test Scores Lower Extremity Functional Score: 41 Improvement % Improvement: 75 01/26/25 1526 CC: Dr. Michell Tirado MD JLA Signed Normal [place] Inital Evaluation (1) - PTon 01-03-2025 Inital Evaluation (1) - PT [facility] [place] [address] / REHABILITATION SERVICES INITIAL EVALUATION MR#: [id number] Acct: [id number] Name: DAVID OROSCO Rep #: [id number] : 1960 64 From: Doc Martin PT, Cert. T, OCS Referring Dr.: Dr. Michell Tirado MD Status: RE G RCR Insurance: [facility] PACKAGE PLAN Patient's Visit Information Visit Information Visit Information: DAVID OROSCO is a 64 year old F referred to Physical Therapy by Dr. Michell Tirado MD with a diagnosis of KNEE PAIN. Date of Evaluation: 01/03/25 Physical Therapist: Doc Martin, PT, Cert MDT, OCS Visit Plan Frequency: 2x /Week Duration: 4 Weeks Plan: PT INTERVENTIONS ROM ,STRENGTHENING BLE ( HIPS) ,FUNCTIONAL STRENGTHENING ,FLEXABILITY AND ACTIVITY MODIFICATION Subjective Subjective: This 64 y/o female presents to physical therapy for bilateral knee pain right > left . Patient has h/o arthroscopy due to meniscectomy right [address] . Patient [address] DR [place] recommended PT medication and no imaging Patient located global right and left knee thigh and lower leg . Aggravating factors pain with squatting /kneeling ,stairs and uneven surfaces. Alleviating factors ibuproprin ,ice . Patient pain in AM or getting up sitting driving and gets better movingDenies paresthesia/tinglin g. Sleeping okay. Patient pain affects QOL ,housework . Patient goals to decrease pain. SOCIAL: VOCATION: Retired HOBBIES: lap swimming Pain Right Knee: Pain Intensity (Out of 10): 2 Pain Intensity Range: 10 Left Knee: Pain Intensity (Out of 10): 5 Pain Intensity Range: 10 Objective Objective: POSTURE: bilateral mod knee valgus PALPATION:unremarka ble GAIT: reciprocal pattern NEURO: denies paresthesia/tinglin g AROM: supine knee flexion 0-125 degrees ,0-125 degrees MMT: ( peak force) quads right 25.9 ,left 24.2 ,hamstrings right 26.9 ,left 28.9 ,hip flexion right 23.8 ,left 24.8 ,hip abduction right 21.9 , left hip abduction 23.1 STAIRS: one step at time with rail bilateral Special Tests R Knee Jennifer - Meniscus: Positive R Knee Manny - ACL: Negative R Knee Valgus - MCL: Negative R Knee Varus - LCL: Negative R Knee Patellar Apprehension - PFS: Negative R Knee Patellar Grind - PFS: Positive L Knee Jennifer - Meniscus: Positive L Knee Valgus - MCL: Negative L Knee Varus - LCL: Negative L Knee Patellar Grind - PFS: Positive Balance/Special Test Scores Lower Extremity Functional Score: 41 Goals Goal 1:: Patient to be I with HEP for knees Goal 2:: Patient to demonstrate 50 % improvement with less pain and improved function with gait Goal Time Frame: 4-6 Weeks Goal 3:: Patient to improve LFES score by 5 points to improve function with QOL Goal Time Frame: 4-6 Weeks Goal 4:: Patient to improve peak force hips by 5-10# to improve function and strength Goal Time Frame: 4-6 Weeks Rehabilitation Potential Physical Therapy Diagnosis: Patient has knee pain due to DJD with pain decrease ROM weakness ,hips and quads impairs gait and stairs thus benefit from skilled PT Rehabilitation Potential: Good Anticipated Interventions Patient/Client Instruction: Educate patient on: Condition and Plan of Care For the Purpose of:: To decrease pain, To improve muscle performance and motor function, To increase tolerance to activity/condition/ position, To improve ability of physical actions for home/community/work /leisure, To improve health of tissue, To decrease soft tissue restriction, To reduce risk of recurrence and To improve tolerance to ADL's Therapeutic Exercise to Include: Strength training, Postural training, Flexibilty training and Active ROM Comment: BLE -HIPS For the Purpose of:: To decrease pain, To improve muscle performance and motor function, To increase tolerance to activity/condition/ position, To improve ability of physical actions for home/community/work /leisure, To improve health of tissue, To decrease soft tissue restriction, To increase flexibility/ROM, To reduce risk of recurrence and To improve tolerance to ADL's TENS: Yes IF ES: Yes Cryotherapy (ice pack, ice massage): Yes Ultrasound (thermal/non thermal): Yes For the Purpose of:: To decrease pain, To improve muscle performance and motor function, To increase tolerance to activity/condition/ position, To improve health of tissue and To decrease soft tissue restriction Text: Thank you for the opportunity to evaluate your patient. For Medicare and Medicare HMO plans, please review the plan of care and approve it. It will need to be FAXED BACK to us at [phone] for Medicare purposes. For Medicare only, by signing this I certify the plan of care. Please let me know if there are questions or concerns regarding this plan of care. Physician Signature: _ (more content not included)... Normal [place] Bilirubin directOrdered By: Jazlyn Sen on 12-27-2024 Bilirubin.direct [Mass/Vol] 0.18 mg/dL 0.00-0.30 [place] Bilirubin, totalOrdered By: Jazlyn Sen on 12-27-2024 Bilirubin [Mass/Vol] 0.41 mg/dL 0.00-1.30 [facility] Calculated very low density lipoprotein (VLDL) cholesterol measurementOrdered By: Jazlyn Sen on 12-27-2024 Calculated very low density lipoprotein (VLDL) cholesterol measurement 25 mg/dL [place] VLDL Cholesterol 25 mg/dL 40 [place] LDL calc ser/plasOrdered By: Jazlyn Sen on 12-27-2024 Cholesterol in LDL [Mass/Vol] 57 mg/dL [place] Comment on above: Gkvwqjfzqv=838-626 m g/dL & Higher Aeyw=601 mg/dL or greater LDL Cholesterol, Calculated 57 mg/dL [place] Comment on above: Yxjobbogrf=377-253 m g/dL & Higher Reqa=610 mg/dL or greater Laboratory - Chemistry and C hemistry - challengeOrdered By: Jazlyn Sen on 12-27-2024 AST [Catalytic activity/Vol] 22 U/L <32 [place] Lipid Profileon 12-27-2024 CHOL:HDL 2.31 Normal [place] Comment on above: Performed By: #### L 500.3400, L500.4100 #### [facility] [address] [place], [address] Cholesterol [Mass/Vol] 143 mg/dL Normal <=[address] [facility] Comment on above: Result Comment: Chol esterol level, Desirable <200 mg/dL Borderline high cholesterol 200-239 mg/dL High cholesterol >=240 mg/dL Recommendations of the NCEP Adult Treatment Panel for the following risk-cutoff thresholds for the [place] population. Performed By: #### L 500.3400, L500.4100 #### [facility] [address] [place], [address] Cholesterol in HDL [Mass/Vol] 62 mg/dL Normal [place] Comment on above: Result Comment: Romy onal Cholesterol Education Program (NCEP) guidelines: <40 mg/dL: Low HDL-cholesterol (major risk factor for CHD) >= 60 mg/dL: High HDL-cholesterol (negative risk factor for CHD) HDL-cholesterol is affected by a number of factors, e.g. smoking, exercise, hormones, sex and age. Performed By: #### L 500.3400, L500.4100 #### [facility] [address] [place], [address] Cholesterol in LDL [Mass/Vol] 57 mg/dL Normal [place] Comment on above: Result Comment: Bord ctajqq=059-589 mg/dL Higher Zzqo=655 mg/dL or greater Performed By: #### L 500.3400, L500.4100 #### [facility] [address] [place], [address] Cholesterol in VLDL [Mass/Vol] 25 mg/dL Normal 5-40 [facility] Comment on above: Performed By: #### L 500.3400, L500.4100 #### [facility] [address] [place], [address] Triglyceride [Mass/Vol] 123 mg/dL Normal [facility] Comment on above: Result Comment: The drugs N-Acetylcysteine and Metamizole may falsely depress this assay. Normal range: <150 mg/dL Borderline High: 150-199 mg/dL High: 200-499 mg/dL Very High: >500 mg/dL Performed By: #### L 500.3400, L500.4100 #### [facility] [address] [place], [address] Liver Profileon 12-27-2024 AST [Catalytic activity/Vol] 22 U/L Normal <=31 [facility] Comment on above: Performed By: #### L 500.3400, L500.4100 #### [facility] [address] [place], [address] Screening total cholesterol/ high density lipoprotein (HDL) cholesterol ratioOrdered By: Jazlyn Sen on 12-27-2024 Cholesterol.total/Choles terol in HDL [Mass ratio] 2.31 {ratio} [place] Serum globulin measurementOr dered By: Jazlyn Sen on 12-27-2024 Globulin (S) [Mass/Vol] 2.8 g/dL 2.2-4.2 [facility] Serum or plasma alanine johnson otransferase (ALT) measurementOrdered By: Jazlyn Sen on 12-27-2024 ALT [Catalytic activity/Vol] 41 U/L High <35 [place] Serum or plasma albumin agata urement (mass/volume)Ordered By: Jazlyn Sen on 12-27-2024 Albumin [Mass/Vol] 4.3 g/dL 3.4-4.8 [facility] Serum or plasma alkaline walter sphatase measurementOrdered By: Jazlyn Sen on 12-27-2024 ALP [Catalytic activity/Vol] 147 U/L High 35-104 [place] Serum or plasma cholesterol in HDL measurement (mass/volume)Ordered By: Jazlyn Sen on 12-27-2024 Cholesterol in HDL [Mass/Vol] 62 mg/dL >40 [place] Comment on above: National Cholesterol Education Program (NCEP) guidelines:<40 mg/dL: Low HDL-cholesterol (major risk factor for CHD)>= 60 mg/dL: High HDL-cholesterol (negative risk factor for CHD)HDL-cholesterol is affected by a number of factors, e.g. smoking, exercise, hormones, sex and age. Serum or plasma cholesterol measurement (mass/volume)Ordered By: Jazlyn Sen on 12-27-2024 Cholesterol [Mass/Vol] 143 mg/dL <[address] [facility] Comment on above: Cholesterol level, D esirable <200 mg/dLBorderline high cholesterol 200-239 mg/dLHigh cholesterol >=240 mg/dLRecommendations of the NCEP Adult Treatment Panel for the following risk-cutoff thresholds for the [place] population. Total proteinOrdered By: Talat Sen on 12-27-2024 Protein [Mass/Vol] 7.0 g/dL 5.9-8.4 [facility] Triglycerides measurementOrd ered By: Jazlyn Sen on 12-27-2024 Triglyceride [Mass/Vol] 123 mg/dL <199 [facility] Comment on above: The drugs N-Acetylcy steine and Metamizole may falsely depress this assay. Normal range: <150 mg/dLBorderline High: 150-199 mg/dLHigh: 200-499 mg/dLVery High: >500 mg/dL Laboratory - Microbiology an d Antimicrobial susceptibilityOrdered By: Kieth Collier on 12-20-2024 SARS-CoV-2 (COVID-19) RNA MONIE+probe Ql (Unsp spec) Not detected [place] No Panel InformationOrdered By: Keith Collier on 12-20-2024 Influenza Types A,B Rapid (Clinic) Not detected [facility] Visit Reporton 0 12-20-2024 Urgent Care Visit Report [facility] [address], [address] [place] [address] OFFICE VISIT Date of Service: 12/20/24 MR#: [id number] Acct: [id number] Name: DAVID OROSCO Rep #: [id number] : 1960 Provider: BRIANNA Palomo Age/Sex: 64/F Location: [facility] Status: Signed Intake Vital Signs 09/15/24 10:11 12/20/24 09:41 Height 6 ft 6 ft Weight: 250 lb 2 oz BMI 33.9 BP 118/66 Position Sitting Pulse 85 Temp 98.9 F Temp Source Oral Pulse Oximetry (%) 97 Oxygen Delivery Method room air Intake Visit Reasons: COUGHING / DRAINAGE / SINUS Allergies pravastatin Adverse Reaction (Severe, Verified 12/20/24 09:03) Severe myalgias simvastatin Adverse Reaction (Severe, Verified 12/20/24 09:03) Severe myalgias ezetimibe (From Zetia) Adverse Reaction (Intermediate, Verified 12/20/24 09:03) Myalgias Medications ???Medication ???Instructions ???Recorded ???Confirmed ???Type loratadine 10 mg tablet (Claritin) 10 mg PO QDAY PRN allergy sympto ms 07/16/18 11/19/24 History calcium carbonate (Calcium 500) 500 mg PO DAILY 12/13/21 09/13/24 History omega-3 fatty acids 1,000 mg 1,000 mg PO DAILY 12/13/21 4 History capsule (Fish Oil Concentrate) multivitamin (Daily Multi-Vitamin 1 tab PO DAILY 08/06/22 09/13/24 History tablet) hzhnazjoaxz-yks-fhu ndroit-hrb 1 tab PO BID 01/01/24 09/13/24 His tory 149-hyalur 500 mg-500 mg-66.7 mg tablet (Glucosamine-Chondr oitin-MSM (with antiox)) losartan 25 mg tablet 25 mg PO BID #180 tabs 01/11/24 Rx metoprolol succinate 25 mg 25 mg PO DAILY #90 tabs 01/11/24 0 12/20/24 Rx tablet,extended release 24 hr diltiazem HCl 360 mg 360 mg PO DAILY #90 caps 04/08/24 12/20/24 Rx capsule,extended release 24 hr evolocumab 140 mg/mL subcutaneous 140 mg subcut Q2W #2 mL 06/20/24 09/13/24 Rx pen injector (Repatha SureClick) amoxicillin 875 mg-potassium 1 tab PO BID #20 tabs 12/20/24 Rx clavulanate 125 mg tablet benzonatate 200 mg capsule 200 mg PO TID PRN cough #20 caps 0 12/20/24 12/20/24 Rx Nurse's Note: Patient has coughing and drainage and sinus going on since last thu. [facility] Medical History Wears glasses Post-menopausal Alcohol use Arthritis Former smoker History of edema History of Holter monitoring History of echocardiogram History of stress test Cardiology follow-up encounter History of irregular heartbeat Abnormal mammogram Near syncope Obstructive sleep apnea hypopnea, mild History of paroxysmal atrial tachycardia Premature ventricular contraction Leiomyoma of body of uterus Ventricular premature depolarization Nonsustained paroxysmal ventricular tachycardia Hypertension Hyperlipidemia Surgical History History of cardiac catheterization Hx of colonoscopy History of arthroscopy of right knee (09/10/21) Family History Brother Diabetes Hypertension Hyperlipidemia CAD (coronary artery disease) Stented coronary artery Sister Atrial fibrillation Alcoholism Mother Alcoholism Lung cancer Social History household members: spouse current occupational status: retired Smoking Status: Former smoker how long ago did patient quit smokin alcohol intake: current alcohol intake frequency: a few times a week substance use type: does not use caffeine: Yes Type: coffee Number of servings: 2 what type of physical activity do you participate in: swimming and other details: ski frequency: 3-4 times per week seatbelt use: always do you feel safe at home: Yes additional social history: -Adelaide HPI HPI Details: DAVID OROSCO, is a 64 F who presents to the office today for [facility] evaluation in the [facility] for approximately 1 week history of persistent fever, chills, cough, BRASHER, myalgias, fatigue, congestion/ runny nose, nausea, and diarrhea. Patient notes no complaints of chest pain or shortness of breath or dyspnea on exertion. Several close contacts recently dx???d w/ similar URI complaints. No uhjo-bud-bqakawl products taken to assist. Non-smoker. No other associated symptoms and no other alleviating/aggrava ting factors. ROS Const Constitutional: No other (As above) Exam Const General: cooperative, healthy appearing and no acute distress Orientation: alert, awake and oriented x3 HENMT Head: normal to inspection Ears: hearing grossly normal bilaterally, external ears normal, TM's normal bilaterally and EAC's normal Nose: external nose normal, nares normal, septum normal and clear nasal discharge Face and sinus: normal facial exa (more content not included)... Normal [place] Colonoscopy Reporton 024 Colonoscopy Report [facility] Medical Records Department [address] [place] [place] [address] Colonoscopy Report MR#: [id number] Acct: [id number] Name: DAVID OROSCO Rep #: [id number] : 1960 64 From: [facility] Friend DO PCP: Dr. Michell Tirado MD Status:[facility] Patient Name: David Orosco Procedure Date: 09/15/2024 10:57 AM Date of : 1960 Age: 64 Procedure: Colonoscopy Indications: High risk colon cancer surveillance: Personal history of colonic polyps Providers: DO Meir Russell MD: Michell Tirado Medicines: Monitored Anesthesia Care Patient Profile: This is a 64 year old female. Refer to note in patient chart for documentation of history and physical. Last Colonoscopy: 5 years ago. Complications: No immediate complications. Procedure: Pre-Anesthesia Assessment: - Prior to the procedure, a History and Physical was performed, and patient medications and allergies were reviewed. The patient is competent. The risks and benefits of the procedure and the sedation options and risks were discussed with the patient. All questions were answered and informed consent was obtained. Patient identification and proposed procedure were verified by the physician in the pre-procedure area. Mental Status Examination: alert and oriented. Airway Examination: normal oropharyngeal airway and neck mobility. Respiratory Examination: clear to auscultation. CV Examination: normal. Prophylactic Antibiotics: The patient does not require prophylactic antibiotics. Prior Anticoagulants: The patient has taken no anticoagulant or antiplatelet agents except for NSAID medication. ASA Grade Assessment: II - A patient with mild systemic disease. After reviewing the risks and benefits, the patient was deemed in satisfactory condition to undergo the procedure. The anesthesia plan was to use monitored anesthesia care (MAC). Immediately prior to administration of medications, the patient was re-assessed for adequacy to receive sedatives. The heart rate, respiratory rate, oxygen saturations, blood pressure, adequacy of pulmonary ventilation, and response to care were monitored throughout the procedure. The physical status of the patient was re-assessed after the procedure. After I obtained informed consent, the scope was passed under direct vision. Throughout the procedure, the patient's blood pressure, pulse, and oxygen saturations were monitored continuously. The Colonoscope was introduced through the anus and advanced to the cecum, identified by appendiceal orifice and ileocecal valve. The colonoscopy was performed without difficulty. The patient tolerated the procedure well. The quality of the bowel preparation was adequate. The ileocecal valve, appendiceal orifice, and rectum were photographed. Scope In: 11:04:17 AM Scope Withdrawal Time 0 hours 11 minutes 43 seconds Scope Out: 11:24:06 AM Total Procedure Duration Time 0 hours 19 minutes 49 seconds Findings: The perianal and digital rectal examinations were normal. Four sessile polyps were found in the rectum, sigmoid colon and descending colon. The polyps were 1 to 2 mm in size. These polyps were removed with a hot snare. Resection and retrieval were complete. Verification of patient identification for the specimen was done. Estimated blood loss was minimal. Two sessile polyps were found in the transverse colon and cecum. The polyps were 1 to 2 mm in size. These polyps were removed with a jumbo cold forceps. Resection and retrieval were complete. Verification of patient identification for the specimen was done. Estimated blood loss was minimal. Two small-mouthed diverticula were found in the recto-sigmoid colon. Impression: - Four 1 to 2 mm polyps in the rectum, in the sigmoid colon and in the descending colon, removed with a hot snare. Resected and retrieved. - Two 1 to 2 mm polyps in the transverse colon and in the cecum, removed with a jumbo cold forceps. Resected and retrieved. - Diverticulosis in the recto-sigmoid colon. Recommendation: - Discharge patient to home. - Resume previous diet. - Continue present medications. - Await pathology results. - Repeat colonoscopy in 3 years for surveillance. Procedure Code(s): --- Professional --- 33887, Colonoscopy, flexible; with removal of tumor(s), polyp(s), or other lesion(s) by snare technique 34585, 59, Colonoscopy, flexible; with biopsy, single or multiple CPT copyright 2021 [employer]. All rights reserved. The codes documented in this report are preliminary and upon accounts payable or receivable clerk review may be revised to meet current compliance requirements. Abilio Estevez DO 09/15/2024 11:32:37 AM This report has been signed electronically. Number of Addenda: 0 Note Initiated On: 09/15/2024 10:57 AM 09/15/24 1132 Date (more content not included)... Normal [place] MR/POSTOP.[place] 09-15-2024 MR/POSTOP.[facility] Medical Records Department [address] [place] [address] Anesthesia Postop Eval I 09/15/24 1139 MR#: [id number] Acct: [id number] Name: DAVID OROSCO Rep #: [id number] : 1960 64 From: Nate Gerard PCP: Dr. Michell Tirado MD Status:[facility] Y Race: C Location: [place] [address] Anesthesia: Postop Eval I Current Vital Signs Temperature: 97.4 F Pulse Rate: 61 Blood Pressure: 87/61 Respiratory Rate: 14 Pulse Ox: 96 Oxygen Delivery Method: Room Air Assessment Airway patent: Yes Spontaneous unlabored respirations: Yes Mental status: Asleep nausea: No Vomiting: No Anesthesia Complication: No Fluid Hydration Crystalloid volume administer (ml): 60 Total IV fluid infused: 60 Progress Note Anesthesia document: Postop Eval 1 completed: Yes 09/15/24 1140 Date Nate Parrishignabdi Signature: Date CC: Signed Normal [place] MR/WEEVTOKW5yl 09-15-2024 /[facility] Medical Records Department [address] [place] [address] Anesthesia Postop Eval II 09/15/24 1702 MR#: [id number] Acct: [id number] Name: DAVID OROSCO JUANJOSE Rep #: [id number] : 1960 64 From: Martinez Mena MD PCP: Dr. Michell Tirado MD Status:[facility] Y Race: C Location: [place] Anesthesia Postop Eval I Sum Postop Eval Completion status Anesthesia document: Postop Eval 1 completed: Yes Anesthesia Postop Eval I Summary Anesthesia Postop Eval I Summary: Anesthesia Postop Eval I: Assessment Summary Airway patent Yes 09/15/24 11:40 [email or web address] Spontaneous unlabored Yes 09/15/24 11:40 [email or web address] respirations Mental status Asleep 09/15/24 11:40 [email or web address] nausea No 09/15/24 11:40 [email or web address] Vomiting No 09/15/24 11:40 [email or web address] Anesthesia Postop Eval I: Fluid Summary Crystalloid volume administer 60 09/15/24 11:40 [email or web address] (ml) Colloids volume administered ( ml) Blood Product volume administered (ml) Total IV fluid infused 60 09/15/24 11:40 [email or web address] Anesthesia Postop Eval I: Summary Notes Anesthesia Complication No 09/15/24 11:40 [email or web address] Anesthesia Complication Comment: Post-operative progress note Anesthesia: Postop Eval II Evaluation Mental status: Awake and Calm Pain Level: 0 nausea: No Vomiting: No Complications Anesthesia Complication: No 09/15/24 1703 Date Martinez Voss Signature: Date CC: Signed Normal [place] Surgery Specimen Level Thais 09-15-2024 Surgery Specimen Level IV Patient Age/Sex Location Account Attending Physician DAVID OROSCO 64/F EN [id number] Abilio Estevez DO Specimen: [id number] Received: 09/15/24 Status: [facility] [place] Num: [id number] Spec Type: COLON BX Subm Dr: Abilio Estevez DO HEADER OPERATION: Colonoscopy with biopsy, polypectomy PRE-OP DIAGNOSIS: Encounter for screening for malignant neoplasm of colon TISSUE SUBMITTED: A- Descending colon polyp, B- Cecum polyp, C- Transverse colon polyp, D- Sigmoid polyp, E- Rectum polyp MICROSCOPIC DIAGNOSIS A. Descending colon polyp, polypectomy: Tubular adenoma. B. Cecum polyp, polypectomy: Fragments of hyperplastic polyp. C. Transverse colon polyp, polypectomy: Hyperplastic polyp. D. Sigmoid polyp, polypectomy: Fragments of tubular adenoma. E. Rectum polyp, polypectomy: Fragments of tubular adenoma. 09/16/2024 MICROSCOPIC DESCRIPTION Slides are reviewed. GROSS DESCRIPTION A. Received in fixative is one container labeled with the patient's name and designated Descending colon polyp. The specimen consists of one irregular fragment of light york soft tissue that measures 0.4 x 0.4 x 0.2 cm. The specimen is totally submitted in one cassette. B. Received in fixative is one container labeled with the patient's name and designated Cecum polyp. The specimen consists of multiple irregular fragments of light york soft tissue that in aggregate measure 1.0 x 0.3 x 0.1 cm. The specimen is totally submitted in one cassette. C. Received in fixative is one container labeled with the patient's name and designated Transverse colon polyp. The specimen consists of one irregular fragment of light york soft tissue that measures 0.4 x 0.3 x 0.1 cm. The specimen is totally submitted in one cassette. D. Received in fixative is one container labeled with the patient's name and designated Sigmoid colon polyp. The specimen consists of two irregular fragments of light [place] soft tissue that in aggregate measure 0.6 x 0.4 x 0.1 cm. The specimen is totally submitted in one cassette. E. Received in fixative is one container labeled with the patient's name and designated Rectum polyp. The specimen consists of a york-pink polyp measuring 0.7 x 0.5 x 0.4cm. Also present in the container are a few fragments of york soft tissue measuring in aggregate 0.4 x 0.2 x 0.1cm. The entire specimen is submitted in one cassette. 09/15/2024 TC:1 [facility]:[id number] Patient Age/Sex Location Account Attending Physician DAVID OROSCO 64/F EN [id number] Abilio Estevez, DO Signed (signatur e on file) Dr. Michael Connor MD 09/16/24 1208 Normal [place] Comment on above: Performed By: #### P SUIV #### [facility] [address] [place], [address] Surgery Visit Reporton 08-03 Surgery Visit Report [facility] [address] [place] [address] OFFICE VISIT Date of Service: 08/03/24 MR#: [id number] Acct: [id number] Name: DAVID OROSCO Rep #: [id number] : 1960 Provider: Dr. Julius lawler MD Age/Sex: 64/F Location: [facility] Status: Signed Intake Vital Signs 06/23/24 14:03 07/21/24 09:02 Height 6 ft 1 in 6 ft Intake Visit Reasons: RECALL LETTER- BREAST Chief Complaint: recall letter-breast Is patient in pain?: No Allergies pravastatin Adverse Reaction (Severe, Verified 08/03/24 08:12) Severe myalgias simvastatin Adverse Reaction (Severe, Verified 08/03/24 08:12) Severe myalgias ezetimibe (From Zetia) Adverse Reaction (Intermediate, Verified 08/03/24 08:12) Myalgias Medications ???Medication ???Instructions ???Recorded ???Confirmed ???Type loratadine 10 mg tablet (Claritin) 10 mg PO QDAY PRN 05/10/18 08/03/24 History calcium carbonate (Calcium 500) 500 mg PO DAILY 12/13/21 08/03/24 History magnesium oxide 400 mg PO Q OTHER DAY 12/13/21 08/03/24 History omega-3 fatty acids 1,000 mg 1,000 mg PO DAILY 12/13/21 08/03/24 History capsule (Fish Oil Concentrate) multivitamin (Daily Multi-Vitamin 1 tab PO DAILY 08/06/22 08/03/24 History tablet) snapdqpoyav-tgk-xwz ndroit-hrb 1 tab PO BID 01/01/24 08/03/24 History 149-hyalur 500 mg-500 mg-66.7 mg tablet (Glucosamine-Chondr oitin-MSM (with antiox)) losartan 25 mg tablet 25 mg PO BID #180 tabs 01/11/24 08/03/24 Rx metoprolol succinate 25 mg 25 mg PO DAILY #90 tabs 01/11/24 08/03/24 Rx tablet,extended release 24 hr diltiazem HCl 360 mg 360 mg PO DAILY #90 caps 04/08/24 08/03/24 Rx capsule,extended release 24 hr evolocumab 140 mg/mL subcutaneous 140 mg subcut Q2W #2 mL 06/20/24 08/03/24 Rx pen injector (Mckenna Barneyick) aspirin 81 mg tablet,delayed 81 mg PO QDAY 07/21/24 08/03/24 History release (Adult Aspirin Regimen) [facility] Medical History Abnormal mammogram Near syncope Obstructive sleep apnea hypopnea, mild History of paroxysmal atrial tachycardia Premature ventricular contraction Leiomyoma of body of uterus Ventricular premature depolarization Nonsustained paroxysmal ventricular tachycardia Hypertension Hyperlipidemia Surgical History (Updated 07/21/24 @ 08:56 by Olivia Birmingham) Hx of colonoscopy History of arthroscopy of right knee (07/05/21) Family History Brother Diabetes Hypertension Hyperlipidemia CAD (coronary artery disease) Stented coronary artery Sister Atrial fibrillation Alcoholism Mother Alcoholism Lung cancer Social History (Updated 07/21/24 @ 08:57 by Olivia Birmingham) household members: spouse current occupational status: retired Smoking Status: Former smoker how long ago did patient quit smokin alcohol intake: current alcohol intake frequency: a few times a week substance use type: does not use caffeine: Yes Type: coffee Number of servings: 2 what type of physical activity do you participate in: swimming and other details: ski frequency: 3-4 times per week seatbelt use: always do you feel safe at home: Yes additional social history: -Adelaide HPI HPI HPI: Patient is a 64-year-old female here following up 6 months after biopsy. She has no issues. ROS General General: No weight change, appetite, fatigue, colon cancer, breast cancer or weakness HEENT HEENT: No difficulty swallowing, eye injury, eye surgery, swollen glands or hoarseness Endo Endocrine: No thyroid disease, diabetes mellitus, thyroid cancer, Hair loss, heat intolerance or cold intolerance Skin Skin: No rash or changing moles Breast Breast: No left breast lump, right breast lump, nipple discharge, breast pain, abnormal mammogram, abnormal US or breast enlargement Musc Musculoskeletal: Yes arthritis; No back problems, rheumatoid arthritis, gout or joint pain Cardio Cardiovascular: Yes high blood pressure; No murmur, pacemaker, heart disease, atrial fibrillation, heart attack, heart stent, palpitations, shortness of breat with exertion or chest pain Psych Psychiatric: No depression, anxiety or hearing voices Resp Respiratory: No shortness of breath, Yes sleep apnea, No cough, No COPD, No asthma, No emphysema and No wheezing Gastro Gastrointestinal: No abdominal pain, No nausea or vomiting, No diarrhea, No constipation, No blood in stool, No acid reflux, Yes hemorrhoids, No ulcers, No gallbladder problem and No black,tarry stools Shorty Hematologic: No blood thinners, No blood disorders, No bleeding, No anemia and No blood clots Neuro Neurologic: No system reviewed and no additional complaints, except as documented, No as per HPI, No abnorm (more content not included)... Normal [place] Breast Limited Unilateralon 08-01-2024 Breast Limited Unilateral [facility] Services [address], [place] [id number] Breast Limited Unilateral MR#: [id number] Acct: [id number] Name: DAVID OROSCO Rep #: [id number] : 1960 F 64 From: Bill estrada MD PCP: Dr. Michell Tirado MD Status: REG CLI Study: Breast Limited Unilateral Date of Exam: Exam# [id number] Ordering Dr: Julius Warren -[id number] STUDY: ULTRASOUND BREAST - LEFT REASON FOR EXAM: Female, 64 years old. 6 month follow-up examination following biopsy. TECHNIQUE: Axial and longitudinal images of the LEFT breast were performed with a high resolution ultrasound transducer. # OF IMAGES: 21 COMPARISON: Comparison is made with prior sonogram dated January 29, 2024. FINDINGS: LEFT Breast: Stable 1.6 cm x 1.4 cm x 0.7 cm hypoechoic nodular density with a clip within it at the 9:00 position of the breast at 4 cm from the nipple. US/Breast Limited Unilateral IMPRESSION: Persistent nodular density at the 9:00 position breast at 4 cm from the nipple. A tissue clip marker is seen within. ASSESSMENT CATEGORY: BIRADS Category 2: Benign. A letter regarding these results will be sent to the patient by the facility within 30 days. Electronically Signed: Bill Og MD at 11:22 EDT Reading Location ID and State: [address] [place] [address] , Service support , CC: Dr. Julius Warren MD; Dr. Michell Tirado MD Pipe Threader: Signed Normal [place] Cardiology Visit Reporton Cardiology Visit Report [facility] [address] [place] [address] OFFICE VISIT Date of Service: 06/23/24 MR#: [id number] Acct: [id number] Name: ZAINMaria Del CarmenDAVIDALEX SOW Rep #: [id number] : 1960 Provider: TOYA fraga Age/Sex: 64/F Location: [facility] Status: Signed [facility] History of Present Illness Details: David Orosco is a 64 year-old female who presents to the office today for a cardiovascular follow up visit. She has a history of paroxysmal atrial tachycardia, PVCs, nonsustained VT, hypertension, and dyslipidemia.??? She denies chest, arm, jaw, or neck discomfort. She acknowledges palpitations that she describes as irregular. This is unchanged from previous. She states her heart skips a beat. This occurs every 2-3 days for seconds. She states intermittent, bilateral lower extremity edema. She denies claudication. She denies shortness of breath with activity, shortness of breath at rest, orthopnea, or PND. She denies chronic cough. She denies significant, sudden weight gain. She denies lightheadedness, dizziness, near-syncope, or syncope. She denies blood in urine, blood in stool, or epistaxis. He denies fever with chills. She denies myalgia. She denies fatigue. Her exercise level has remained stable. Intake Vital Signs 11/27/23 15:01 02/10/24 08:11 06/23/24 14:03 Height 6 ft 1 in 6 ft 1 in 6 ft 1 in Weight: 248 lb BMI 32.7 BP 134/76 H Blood Pressure Location Lt brachial Position Sitting Respiration 16 Pulse 66 Pulse Source NIBP Intake Visit Reasons: 6 M FU Director Search Marketing Strategies Required: No Is patient in pain?: No Allergies pravastatin Adverse Reaction (Severe, Verified 06/23/24 14:06) Severe myalgias simvastatin Adverse Reaction (Severe, Verified 06/23/24 14:06) Severe myalgias ezetimibe (From Zetia) Adverse Reaction (Intermediate, Verified 06/23/24 14:06) Myalgias Medications ???Medication ???Instructions ???Recorded ???Confirmed ???Type loratadine 10 mg tablet (Claritin) 10 mg PO QDAY PRN 05/10/18 06/23/24 History calcium carbonate (Calcium 500) 500 mg PO DAILY 12/13/21 06/23/24 History magnesium oxide 400 mg PO Q OTHER DAY 12/13/21 06/23/24 History omega-3 fatty acids 1,000 mg 1,000 mg PO DAILY 12/13/21 06/23/24 History capsule (Fish Oil Concentrate) multivitamin (Daily Multi-Vitamin 1 tab PO DAILY 08/06/22 06/23/24 History tablet) goqirrduaej-ttz-sph ndroit-hrb 1 tab PO BID 01/01/24 06/23/24 History 149-hyalur 500 mg-500 mg-66.7 mg tablet (Glucosamine-Chondr oitin-MSM (with antiox)) losartan 25 mg tablet 25 mg PO BID #180 tabs 01/11/24 06/23/24 Rx metoprolol succinate 25 mg 25 mg PO DAILY #90 tabs 01/11/24 06/23/24 Rx tablet,extended release 24 hr diltiazem HCl 360 mg 360 mg PO DAILY #90 caps 04/08/24 06/23/24 Rx capsule,extended release 24 hr evolocumab 140 mg/mL subcutaneous 140 mg subcut Q2W #2 mL 06/20/24 06/23/24 Rx pen injector (Mckenna Patel) Ejection fraction %: 65 Have you fallen in the past year?: Yes (Trip and fall) [facility] Medical History Abnormal mammogram Near syncope Obstructive sleep apnea hypopnea, mild History of paroxysmal atrial tachycardia Premature ventricular contraction Leiomyoma of body of uterus Ventricular premature depolarization Nonsustained paroxysmal ventricular tachycardia Hypertension Hyperlipidemia Surgical History History of arthroscopy of right knee (07/05/21) Family History Brother Diabetes Hypertension Hyperlipidemia CAD (coronary artery disease) Stented coronary artery Sister Atrial fibrillation Alcoholism Mother Alcoholism Lung cancer Social History Smoking Status: Former smoker how long ago did patient quit smokin alcohol intake: current alcohol intake frequency: a few times a week substance use type: does not use caffeine: Yes Type: coffee Number of servings: 2 what type of physical activity do you participate in: swimming and other details: ski frequency: 3-4 times per week seatbelt use: always do you feel safe at home: Yes additional social history: -Adelaide ROS Const Const: Negative for fatigue or weakness Eyes Eyes: Negative for change in vision ENT ENT: Negative for dizziness, Nosebleed/epistaxis or balance problems Cardio Chest Pain: No Palpitations: Yes feels like its: irregular Edema: Bilateral (Intermittently) Muscle aches with walking: None Resp Respiratory: Negative for SOB with activity, SOB at rest, SOB orthopnea SOB lying down, Cough or paroxysmal nocturnal dyspnea GI GI: Negative nausea, heartburn or black,tarry stools : Negati (more content not included)... Normal [place] Lipid Profileon 06-20-2024 Cholesterol [Mass/Vol] 241 mg/dL High [address] [facility] Comment on above: Result Comment: <200 mg/dL Desirable 200-240 mg/dL Borderline >240 mg/dL High Risk Performed By: #### L 500.4100, L500.3400 #### [facility] [address] [place], [address] Cholesterol in HDL [Mass/Vol] 68 mg/dL Normal [place] Comment on above: Result Comment: The drugs N-Acetylcysteine and Metamizole may falsely depress this assay. Reference Range HDL <40 mg/dL Low HDL Cholesterol HDL >or= 60 mg/dL High HDL Cholesterol Performed By: #### L 500.4100, L500.3400 #### [facility] [address] [place], [address] Cholesterol in LDL [Mass/Vol] 146 mg/dL High 0-130 [place] Comment on above: Performed By: #### L 500.4100, L500.3400 #### [facility] [address] [place], [address] Cholesterol in VLDL [Mass/Vol] 27 mg/dL Normal 5-40 [place] Comment on above: Performed By: #### L 500.4100, L500.3400 #### [facility] [address] [place], [address] Triglyceride [Mass/Vol] 136 mg/dL Normal [facility] Comment on above: Result Comment: The drugs N-Acetylcysteine and Metamizole may falsely depress this assay. Serum Triglycerides Reference Interval Normal <150 mg/dL Borderline high 150 - 199 mg/dL High 200 - 499 mg/dL Very High > or = 500 mg/dL Performed By: #### L 500.4100, L500.3400 #### [facility] [address] [place], [address] Liver Profileon 06-20-2024 Albumin [Mass/Vol] 3.8 g/dL Normal 3.2-5.0 [facility] Comment on above: Performed By: #### L 500.4100, L500.3400 #### [facility] [address] [place], [address] ALK P 98 U/L Normal 45-117 [place] Comment on above: Performed By: #### L 500.4100, L500.3400 #### [facility] [address] [place], [address] ALT [Catalytic activity/Vol] 25 U/L Normal 13-56 [place] Comment on above: Performed By: #### L 500.4100, L500.3400 #### [facility] [address] [place], [address] AST [Catalytic activity/Vol] 18 U/L Normal 15-37 [place] Comment on above: Performed By: #### L 500.4100, L500.3400 #### [facility] [address] [place], [address] Bilirubin [Mass/Vol] 0.70 mg/dL Normal 0.20-1.00 [facility] Comment on above: Result Comment: For patients on eltrombopag therapy, use of Dimension [place] TBIL is not recommended. Performed By: #### L 500.4100, L500.3400 #### [facility] [address] [place], [address] Bilirubin.direct [Mass/Vol] 0.18 mg/dL Normal 0.00-0.30 [place] Comment on above: Performed By: #### L 500.4100, L500.3400 #### [facility] [address] [place], [address] Globulin (S) [Mass/Vol] 3.2 g/dL Normal 2.2-4.2 [facility] Comment on above: Performed By: #### L 500.4100, L500.3400 #### [facility] [address] [place], [address] T PROT 7.0 g/dL Normal 6.4-8.2 [place] Comment on above: Performed By: #### L 500.4100, L500.3400 #### [facility] [address] [place], [address] Basophil percentageOrdered B y: Michell Tirado on 01-01-2024 Chloride [Moles/Vol] 106 mmol/L 98-107 [facility] Glucose [Mass/Vol] 96 mg/dL 74-106 [facility] Potassium [Moles/Vol] 4.1 mmol/L 3.5-5.1 [facility] Sodium [Moles/Vol] 141 mmol/L 136-145 [facility] Laboratory - Chemistry and C hemistry - challengeOrdered By: Michell Tirado on 01-01-2024 CO2 [Moles/Vol] 31.0 mmol/L 21.0-32.0 [place] Urea nitrogen/Creatinine [Mass ratio] 14.2 mg/mg 10-20 [place] No Panel InformationOrdered By: Michell Tirado on 01-01-2024 Estimated GFR (MDRD) Amer 97 mL/min >60 [place] Comment on above: GFR Calc Estimated GFR (MDRD) Non-Af Amer 80 mL/min >60 [place] Comment on above: Non- GFR Calc Serum or plasma calcium agata urement (mass/volume)Ordered By: Michell Tirado on 01-01-2024 Calcium [Mass/Vol] 9.5 mg/dL 8.5-10.1 [facility] Serum or plasma creatinine m easurement (mass/volume)Ordered By: Michell Tirado on 01-01-2024 Creatinine [Mass/Vol] 0.78 mg/dL 0.55-1.02 [facility] Comment on above: The validity of the calculated GFR & GFRAA in patients over 70 years has not been determined. Clinical correlation is essential. Serum or plasma thyroid stim ulating hormone (TSH) measurement (units/volume)Ordered By: Michell Tirado on 01-01-2024 TSH Qn 3.12 uIU/mL 0.358-3.74 [place] Serum or plasma urea nitroge n measurement (mass/volume)Ordered By: Michell Tirado on 01-01-2024 Urea nitrogen [Mass/Vol] 11 mg/dL 7-18 [place] Thin prep Papanicolaou smear with manual screeningOrdered By: Michell Tirado on 01-01-2024 Thin prep Papanicolaou smear with manual screening 4 5-15 [place] Basophil percentageOrdered B y: Sophie Acevedo on 11-20-2023 Bilirubin [Mass/Vol] 0.80 mg/dL 0.20-1.00 [facility] Comment on above: For patients on eltr ombopag therapy, use of Dimension [place] TBIL is not recommended. Cholesterol [Mass/Vol] 258 mg/dL <[address] [facility] Comment on above: <200 mg/dL Desirable 200-240 mg/dL Borderline >240 mg/dL High Risk Protein [Mass/Vol] 7.3 g/dL 6.4-8.2 [facility] Triglyceride [Mass/Vol] 81 mg/dL <199 [facility] Comment on above: The drugs N-Acetylcy steine and Metamizole may falsely depress this assay.Serum Triglycerides Reference Interval Normal <150 mg/dL Borderline high 150 - 199 mg/dL High 200 - 499 mg/dL Very High > or = 500 mg/dL Direct bilirubinOrdered By: Sophie Acevedo on 11-20-2023 Bilirubin.direct [Mass/Vol] 0.18 mg/dL 0.00-0.30 [place] High density lipoprotein (HD L) measurementOrdered By: Sophie Acevedo on 11-20-2023 Cholesterol in HDL (Body fld) [Mass/Vol] 83 mg/dL >40 [place] Comment on above: The drugs N-Acetylcy steine and Metamizole may falsely depress this assay. Reference Range HDL <40 mg/dL Low HDL Cholesterol HDL >or= 60 mg/dL High HDL Cholesterol Laboratory - Chemistry and C hemistry - challengeOrdered By: Sophie Acevedo on 11-20-2023 ALP [Catalytic activity/Vol] 95 U/L 45-117 [place] ALT [Catalytic activity/Vol] 27 U/L 13-56 [place] Globulin (S) [Mass/Vol] 3.2 g/dL 2.2-4.2 [facility] Low density lipoprotein (LDL ) cholesterol measurementOrdered By: Sophie Acevedo on 11-20-2023 Cholesterol in LDL (Body fld) [Moles/Vol] 159 mg/dL 0-130 [place] Thin prep Papanicolaou smear with manual screeningOrdered By: Sophie Acevedo on 11-20-2023 Thin prep Papanicolaou smear with manual screening 4.1 g/dL 3.2-5.0 [place] Thin prep Papanicolaou smear with manual screening 20 U/L 15-37 [facility] Very low density lipoprotein (VLDL) cholesterol measurementOrdered By: Sophie Acevedo on 11-20-2023 Cholesterol in VLDL Calc [Moles/Vol] 16 mg/dL 5-40 [place] Cervical or vagninal specime n microscopic examination by cytology stain (reported asOrdered By: Pamela Marina on 12-22-2022 Cytology report Cyto stain Doc (Cvx/Vag) Comment . [facility] Comment on above: The Pap smear is a s creening test designed to aid in thedetection of premalignant and malignant conditions of theuterine cervix. It is not a diagnostic procedure andshould not be used as the sole means of detecting cervicalcancer. Both false-positive and false-negative reports dooccur. Detection in cervical specim en of any of human papilloma virus (HPV) 16, 18, 31, 33,Ordered By: Pamela Marina on 12-22-2022 HPV 16+18+31+33+35+39+45+51+ 52+56+58+59+66+68 DNA Probe+sig amp Ql (Cvx) Negative Negative [place] Comment on above: This nucleic acid am plification test detects fourteen high-risk HPV types (16,18,31,33,35,39,45,51,52,56,58,59,66,68)without differentiation. Laboratory - CytologyOrdered By: Pamela Marina on 12-22-2022 Nursing Administrator Cyto stain Nom (Cvx/Vag) [ID] Comment . [facility] Comment on above: Yossi Chamberlain ytotechnologist (ASCP) Laboratory - Miscellaneous t estsOrdered By: Pamela Marina on 12-22-2022 Service comment (Unsp spec) [Interp] Comment . [facility] Comment on above: This liquid based Th inPrep(R) pap test was screened withthe use of an image guided system. Service comment (Unsp spec) [Interp] . . [place] Liquid-based cerv Pap + CT/G C by MONIE w reflex to high-risk HPV for ASCUSOrdered By: Pamela Marina on 12-22-2022 Cytology report Cyto stain.thin prep Doc (Cvx/Vag) Comment . [place] Comment on above: Criteria not met, HP V Genotype not performed.Performed at: - [facility] [id number] Director: Haylee Valencia MD, Phone: [phone] at: = - [facility] [id number] Director: Haylee Valencia MD, Phone: [phone] No Panel InformationOrdered By: Pamela Marina on 12-22-2022 Pathology report final diagnosis Narrative Comment . [place] Comment on above: NEGATIVE FOR INTRAEP ITHELIAL LESION OR MALIGNANCY.CELLULAR CHANGES ASSOCIATED WITH ATROPHY ARE PRESENT. CNCSravanthi 10-31-2022 [facility] HNO ID: [id number] Author: Mammography Coordinator Service: ? Author Type: Physician Type: Letter Filed: 11/04/2022 11:31 PM Note Text: November 03, 2022 PID: [id number] David Orosco [address] [place] [address] Dear Ms. Orosco, Your prior imaging studies [...] be kept on file at [facility] as part of your permanent medical record and are available for your continuing care. Thank you for allowing us to help in meeting your health care needs. Sincerely, Dr. Leonardo Interpreting Radiologist (Normal Old Films compared) Normal [facility]2022 [facility] [id number] Author: Mammography Coordinator Service: ? Author Type: Physician Type: Letter Filed: 10/29/2022 11:31 PM Note Text: October 28, 2022 PID: [id number] David Rosa [address] [place] [address] Dear Ms. Orosco, Your prior imaging studies [...] be kept on file at [facility] as part of your permanent medical record and are available for your continuing care. Thank you for allowing us to help in meeting your health care needs. Sincerely, Dr. Leonardo Interpreting Radiologist (Normal Old Films compared) [facility] HNO [facility]: [id number] Author: Mammography Coordinator Service: ? Author Type: Physician Type: Letter Filed: 10/22/2022 11:31 PM Note Text: October 21, 2022 PID: [id number] David Orosco [address] [place] [address] Dear Ms. Orosco, Your breast imaging exam 10/17/2022 showed a possible finding that may require additional imaging studies for a complete evaluation. However, we recognize you have prior imaging studies at facilities other than [facility], and would like the opportunity to [...] are kept on file at [facility] as part of your permanent medical record, and are available for your continuing care. If you have any questions or concerns, please call [phone]. Thank you for choosing [facility] for your imaging needs. Sincerely, Dr. Leonardo Interpreting Radiologist (Old Films) Normal [facility] ANNA SCREENING W TOMOon 10-17 ANNA SCREENING W WEST * * *Final Report* * * * * * SEE BOTTOM OF REPORT FOR ADDENDED TEXT * * * DATE OF EXAM: Oct 17 2022 1:52PM YARA 0582 - ANNA SCREENING W WEST / PROCEDURE REASON: screening, Z12.31 * * * * Physician Interpretation * * * * RESULT: THIS REPORT HAS BEEN AMENDED. #[id number] - [facility] SCREENING W WEST BILATERAL DIGITAL SCREENING MAMMOGRAM TOMOSYNTHESIS WITH CAD: 10/17/2022 HISTORY: Screening, Z12.31 Screening Mammogram - patient reports the following symptoms: right axillary intermittent ache, pt has had an Ultrasound scan at [facility] of this area in 04/2021 /Patient has signed release for outside images that is scanned into syngo from [facility] ([facility]). RESULT: TECHNIQUE: The study was acquired using full field digital technology and interpreted from soft copy. Digital Breast Tomosynthesis (DBT) images were obtained and used to assist in the interpretation of this examination. Current study was also evaluated with a Computer Aided Detection (CAD). No prior exams were available for comparison. The tissue of both breasts is heterogeneously dense. This may lower the sensitivity of mammography. There is a focal asymmetry in the left breast at 9 o'clock middle depth. There also is a focal asymmetry in the left breast at 1 o'clock middle depth. No other significant masses, calcifications, or other findings are seen in either breast. IMPRESSION: INCOMPLETE: NEEDS ADDITIONAL IMAGING EVALUATION The focal asymmetry in the left breast at 9 o'clock middle depth is indeterminate. Additional views and a comparison to prior exams are recommended. The focal asymmetry in the left breast at 1 o'clock middle depth is indeterminate. Additional views and a comparison to prior exams are recommended. There is no abnormality seen in the right axilla to correspond with the pain in the right axilla, however, ultrasound is recommended. SUMMARY: If the patient's prior breast imaging studies become available, an addendum will be dictated after the comparison is made. Maylin medina/trevor: 2 08:04:29 Oil Spot Washer(s): Aleisha Ellis, letter sent: Comparison Films Needed Mammogram BI-RADS: 0 Incomplete: needs additional imaging evaluation If this report indicates you need additional imaging, and it has NOT yet been performed, please call , to schedule. We sincerely thank you for choosing the [facility] for your breast imaging needs. Multiple national specialty organizations have released breast cancer screening guidelines for women at average risk for developing breast cancer - guidelines that are based on both evidence and opinion, yet differ on when to start and how often to screen for breast cancer. With representation from Breast Imaging, Internal Medicine, Women's Health, Family Medicine, and Medical/Surgical Oncology, the [facility] has carefully reviewed the data and reached the following consensus: 1) All women should engage in shared decision-making with their providers to decide when to start and how often to screen; 2) All women should have the opportunity to start screening mammography at age 40; 3) For women ages 45-55, we recommend annual screening mammograms; 4) For women ages 55 and over, we support both the transition from an annual to a biennial interval if this aligns more with patient's values and preferences, or continuation with annual screening; 5) All women should discuss with their providers when to stop screening mammograms. AMENDMENT: 10/24/2022 Maylin Leonardo M.D. Comparison is made to the previous mammogram(s) dated 08/22/21 which are now available. No significant interval change is seen. Routine annual screening mammography is recommended. The patient does not require additional imaging. Amended BI-RADS: 2 Benign finding letter sent: Normal - Films Compared AMENDMENT: 10/31/2022 Yamilex Posadas M.D. Comparison is made to the previous mammogram(s) dated 08/21/20 and 08/22/21 which are now available. No significant interval change is seen. Routine annual screening mammography is recommended. The patient does not require additional imaging. Amended BI-RADS: 2 Benign finding letter sent: Normal - Films Compared Pipe Threader: Trevor Transcribe Date/Time: Oct 17 2022 1:33P Dictated by: MALYIN LEONARDO MD This examination was interpreted and the report reviewed and electronically signed by: MAYLIN LEONARDO MD on Oct 24 2022 4:13PM EST This document has been addended by: MAYLIN LEONARDO MD on Oct 31 2022 4:07PM EST [id number] ACN Normal [facility] Basophil percentageon 2021 Bilirubin [Mass/Vol] 0.80 mg/dL 0.20-1.00 [facility] Work Phone: Comment on above: For patients on eltr ombopag therapy, use of Dimension [place] TBIL is not recommended. Cholesterol [Mass/Vol] 241 mg/dL <200 [facility] Work Phone: Comment on above: <200 mg/dL Desirable 200-240 mg/dL Borderline >240 mg/dL High Risk Protein [Mass/Vol] 7.4 g/dL 6.4-8.2 [facility] Work Phone: Triglyceride [Mass/Vol] 126 mg/dL <199 [facility] Work Phone: Comment on above: The drugs N-Acetylcy steine and Metamizole may falsely depress this assay.Serum Triglycerides Reference Interval Normal <150 mg/dL Borderline high 150 - 199 mg/dL High 200 - 499 mg/dL Very High > or = 500 mg/dL Direct bilirubinon 2 Bilirubin.direct [Mass/Vol] 0.18 mg/dL 0.00-0.30 [place] Work Phone: Laboratory - Chemistry and C hemistry - challengeon 08-06-2022 ALP [Catalytic activity/Vol] 107 U/L 45-117 [place] Work Phone: ALT [Catalytic activity/Vol] 34 U/L 13-56 [place] Work Phone: Globulin (S) [Mass/Vol] 3.4 g/dL 2.2-4.2 [facility] Work Phone: Serum or plasma albumin agata urement (mass/volume)on 08-06-2022 Albumin [Mass/Vol] 4.0 g/dL 3.2-5.0 [facility] Work Phone: Serum or plasma cholesterol in HDL measurement (mass/volume)on 08-06-2022 Cholesterol in HDL [Mass/Vol] 74 mg/dL >40 [place] Work Phone: Comment on above: The drugs N-Acetylcy steine and Metamizole may falsely depress this assay. Reference Range HDL <40 mg/dL Low HDL Cholesterol HDL >or= 60 mg/dL High HDL Cholesterol Serum or plasma cholesterol in VLDL measurement (mass/volume)on 08-06-2022 Cholesterol in VLDL [Mass/Vol] 25 mg/dL 5-40 [place] Work Phone: Serum or plasma low density lipoprotein (LDL) cholesterol measurement (mass/volume)on 08-06-2022 Cholesterol in LDL [Mass/Vol] 142 mg/dL 0-130 [place] Work Phone: Thin prep Papanicolaou smear with manual screeningon 08-06-2022 Thin prep Papanicolaou smear with manual screening 19 U/L 15-37 [place] Work Phone: Absolute lymphocyte counton 12-13-2021 Lymphocytes Auto (Unsp spec) [#/Vol] 1.47 10*3/uL 0.83-4.51 [place] Work Phone: Basophil percentageon 2021 Basophils/100 WBC (Bld) 1.1 % 0-1 [facility] Work Phone: Bilirubin [Mass/Vol] 0.80 mg/dL 0.20-1.00 [facility] Work Phone: Comment on above: For patients on eltr ombopag therapy, use of Dimension [place] TBIL is not recommended. Chloride [Moles/Vol] 105 mmol/L 98-107 [facility] Work Phone: Cholesterol [Mass/Vol] 225 mg/dL <[address] [facility] Work Phone: Comment on above: <200 mg/dL Desirable 200-240 mg/dL Borderline >240 mg/dL High Risk Eosinophils/100 WBC (Bld) 4.9 % 0-5 [place] Work Phone: Glucose [Mass/Vol] 98 mg/dL 74-106 [facility] Work Phone: Neutrophils (Bld) [#/Vol] 2.5 10*3/uL 2.0-7.7 [place] Work Phone: Neutrophils/100 WBC (Bld) 55.4 % 47-70 [place] Work Phone: Potassium [Moles/Vol] 3.6 mmol/L 3.5-5.1 [facility] Work Phone: Protein [Mass/Vol] 7.4 g/dL 6.4-8.2 [facility] Work Phone: Sodium [Moles/Vol] 140 mmol/L 136-145 [facility] Work Phone: Triglyceride [Mass/Vol] 144 mg/dL [facility] Work Phone: Comment on above: The drugs N-Acetylcy steine and Metamizole may falsely depress this assay.Serum Triglycerides Reference Interval Normal <150 mg/dL Borderline high 150 - 199 mg/dL High 200 - 499 mg/dL Very High > or = 500 mg/dL WBC (Bld) [#/Vol] 4.5 10*3/uL 4.4-11.0 [facility] Work Phone: Blood erythrocytes count (nu mber/volume)on 12-13-2021 RBC (Bld) [#/Vol] 4.78 10*6/uL 4.2-5.4 [facility] Work Phone: Blood hemoglobin measurement (mass/volume)on 12-13-2021 Hemoglobin (Bld) [Mass/Vol] 15.0 g/dL 12.0-15.0 [place] Work Phone: Blood lymphocytes/100 leukoc yteson 12-13-2021 Lymphocytes/100 WBC (Bld) 32.6 % 19-41 [place] Work Phone: Blood monocytes/100 leukocyt eson 12-13-2021 Monocytes/100 WBC (Bld) 5.8 % 0-10 [facility] Work Phone: Blood platelet mean volumeon 12-13-2021 Platelet mean volume (Bld) [Entitic vol] 10.2 fL 6.2-12.0 [place] Work Phone: Determination of erythrocyte mean corpuscular volume (MCV)on 12-13-2021 MCV (RBC) [Entitic vol] 90.4 fL 81-99 [facility] Work Phone: Direct bilirubinon 2 Bilirubin.direct [Mass/Vol] 0.16 mg/dL 0.00-0.30 [place] Work Phone: Hematocrit Auto (Bld) [Volum e fraction]on 12-13-2021 Hematocrit (Bld) [Volume fraction] 43.2 % 37-47 [place] Work Phone: Laboratory - Chemistry and C hemistry - challengeon 12-13-2021 ALP [Catalytic activity/Vol] 104 U/L 45-117 [place] Work Phone: ALT [Catalytic activity/Vol] 41 U/L 13-56 [place] Work Phone: CO2 [Moles/Vol] 30.0 mmol/L 21.0-32.0 [place] Work Phone: Free T4 [Mass/Vol] 1.15 ng/dL 0.76-1.46 [facility] Work Phone: Globulin (S) [Mass/Vol] 3.4 g/dL 2.2-4.2 [facility] Work Phone: Magnesium [Mass/Vol] 2.3 mg/dL 1.6-2.6 [facility]: Urea nitrogen/Creatinine [Mass ratio] 16.0 mg/mg 10-20 [place] Work Phone: Laboratory - Hematology and Cell countson 12-13-2021 Erythrocyte distribution width (RBC) [Entitic vol] 40.8 fL 35.1-43.9 [place] Work Phone: Erythrocyte distribution width (RBC) [Ratio] 12.3 % 11.6-14.6 [place] Work Phone: Immature granulocytes/100 WBC (Bld) 0.200 % 0.0-0.9 [place] Work Phone: Comment on above: IG% - Immature Granu locytes (promyelocytes, myelocytes and metamyelocytes) > 1% indicates that a LEFT SHIFT is Present. MCH (RBC) [Entitic mass] 31.4 pg 27.0-32.0 [place] Work Phone: Nucleated RBC/100 WBC (Bld) [Ratio] 0 % 0-5 [place] Work Phone: MCHC Auto (RBC) [Mass/Vol]on 12-13-2021 MCHC (RBC) [Mass/Vol] 34.7 g/dL 32-36 [facility] Work Phone: No Panel Informationon 12-13 Estimated GFR (MDRD) Amer 113 mL/min >60 [place] Work Phone: Comment on above: GFR Calc Estimated GFR (MDRD) Non-Af Amer 93 mL/min >60 [place] Work Phone: Comment on above: Non- GFR Calc Thyroid Stimulating Hormone (TSH) 3.69 uIU/mL 0.358-3.74 [place] Work Phone: Platelets bldon 12-13-2021 Platelets (Bld) [#/Vol] 276 10*3/uL 150-450 [place] Work Phone: Serum or plasma albumin agata urement (mass/volume)on 12-13-2021 Albumin [Mass/Vol] 4.0 g/dL 3.2-5.0 [facility] Work Phone: Serum or plasma calcium agata urement (mass/volume)on 12-13-2021 Calcium [Mass/Vol] 9.1 mg/dL 8.5-10.1 [facility] Work Phone: Serum or plasma cholesterol in HDL measurement (mass/volume)on 12-13-2021 Cholesterol in HDL [Mass/Vol] 68 mg/dL [place] Work Phone: Comment on above: The drugs N-Acetylcy steine and Metamizole may falsely depress this assay. Reference Range HDL <40 mg/dL Low HDL Cholesterol HDL >or= 60 mg/dL High HDL Cholesterol Serum or plasma cholesterol in VLDL measurement (mass/volume)on 12-13-2021 Cholesterol in VLDL [Mass/Vol] 29 mg/dL 5-40 [place] Work Phone: Serum or plasma creatinine m easurement (mass/volume)on 12-13-2021 Creatinine [Mass/Vol] 0.69 mg/dL 0.55-1.02 [facility] Work Phone: Comment on above: The validity of the calculated GFR & GFRAA in patients over 70 years has not been determined. Clinical correlation is essential. Serum or plasma low density lipoprotein (LDL) cholesterol measurement (mass/volume)on 12-13-2021 Cholesterol in LDL [Mass/Vol] 128 mg/dL 0-130 [place] Work Phone: Serum or plasma urea nitroge n measurement (mass/volume)on 12-13-2021 Urea nitrogen [Mass/Vol] 11 mg/dL 7-18 [place] Work Phone: Thin prep Papanicolaou smear with manual screeningon 12-13-2021 Thin prep Papanicolaou smear with manual screening 21 U/L 15-37 [place] Work Phone: Thin prep Papanicolaou smear with manual screening 5 5-15 [place] Work Phone: MM SCREENING WEST BILATERALo n 08-22-2021 MM SCREENING WEST BILATERAL EXAMINATION: MM SCREENING WEST BILATERAL HISTORY: ORDERING SYSTEM PROVIDED HISTORY: Visit for screening mammogram, TECHNOLOGIST PROVIDED HISTORY: ORDERING SYSTEM PROVIDED DIAGNOSIS CODES: Z12.31 Visit for screening mammogram COMPARISON: Mammograms dating back to 10/16/2015. TECHNIQUE: Bilateral 2D and 3D mammographic views. Computer-aided detection was utilized in the interpretation of this exam. FINDINGS: The breasts are heterogeneously dense, which may obscure small masses. Parenchymal asymmetries are stable. No developing asymmetry, dominant mass or suspicious microcalcifications . There are no suspicious findings. IMPRESSION: No mammographic evidence for malignancy. BIRADS: BIRADS - CATEGORY 2 Benign, no evidence of malignancy. Normal interval follow-up is recommended in 12 months. OVERALL ASSESSMENT - BENIGN A letter of notification will be sent to the patient regarding the results. [facility], along with the National [employer], the [employer], and [facility], recommend annual screening mammograms for women age 40 and older. [facility] Workstation ID: [id number] Dictated by: ERNESTINA WELLS on ThuAug 22, 2021 2:57:36 PM EDT Transcribed by: MANUELA AHMADI on ThuAug 22, 2021 2:57:36 PM EDT Finalized by: ERNESTINA WELLS on ThuAug 22, 2021 8:48:22 PM EDT Normal [facility] US DUPLEX VENOUS LEG RIGHTon 07-09-2021 US DUPLEX VENOUS LEG RIGHT Patient Info Name: DAVID OROSCO Age: 61 years : 1960 Gender: Female Exam Date: 07/09/2021 3:14 PM Patient Status: Outpatient Community Relations Assistant: Sonam Mckeon RDMS, RVT Referring Physician: KANU PHIPPS ; Indications Z98.890 - Z98.890 S/P right knee arthroscopy Procedure Description 53440 Duplex examination using B-mode, color and spectral Doppler of extremity veins including responses to compression and other maneuvers; unilateral or limited study. Conclusions * No evidence of deep or superficial vein thrombosis in the right lower extremity. * Evidence of a hypoechoic structure is noted in right popliteal fossa measuring 6.7 cm X 1.85 cm consistent with a Sandra's cyst. Risk Factors Patient has a history of hypertension and hyperlipidemia. S/P right knee arthroscopy. . Report Signatures Finalized by DAWOOD Hill DO on 07/09/2021 04:39 PM Normal [facility] US DUPLEX VENOUS LEG RIGHT Patient Info Name: DAVID OROSCO Age: 61 years : 1960 Gender: Female Exam Date: 07/09/2021 3:14 PM Patient Status: Outpatient Community Relations Assistant: Sonam Mckeon RDMS, TRESSAT Referring Physician: KANU PHIPPS ; Indications Z98.890 - Z98.890 S/P right knee arthroscopy Procedure Description 44320 Duplex examination using B-mode, color and spectral Doppler of extremity veins including responses to compression and other maneuvers; unilateral or limited study. Conclusions * No evidence of deep or superficial vein thrombosis in the right lower extremity. * Evidence of a hypoechoic structure is noted in right popliteal fossa measuring 6.7 cm X 1.85 cm consistent with a Sandra's cyst. Risk Factors Patient has a history of hypertension and hyperlipidemia. S/P right knee arthroscopy. . Report Signatures Finalized by DAWOOD Hill DO on 07/09/2021 04:39 PM Dictated by: JACQUELINE GONZALEZ III on ThuJul 09, 2021 4:43:09 PM EDT Transcribed by: JACQUELINE GONZALEZ III on ThuJul 09, 2021 4:43:09 PM EDT Finalized by: JACQUELINE GONZALEZ III on ThuJul 09, 2021 4:43:09 PM EDT Normal [facility] COVID-19, MOLECULARon 2020 SARS-CoV-2 (COVID-19) RNA MONIE+probe Ql (Unsp spec) Not detected Normal Not Detected [facility] Comment on above: Result Comment: This test was performed under the FDA's Emergency Use Authorization (EUA). Testing was performed using the Fausto SARS-CoV-2 RT-PCR assay on the Mirta Fausto 6800 System. This test has not been approved for use in asymptomatic patients and its performance in this patient population has not been evaluated. Negative results do not rule out the presence of SARS-CoV-2/COVID-19. Fact sheets for this EUA can be found at the following links: For Healthcare Providers: https://www.fda.gov/media/126359/download For Patients: https://www.fda.gov/media/056414/download Performed By: #### L [id number] #### [facility] [address] [address] Jr Pierre M.D. [id number] MR KNEE RIGHT WITHOUT CONTRA STon 04-02-2021 MR KNEE RIGHT WITHOUT CONTRAST EXAMINATION: MR KNEE RIGHT WITHOUT CONTRAST HISTORY: ORDERING SYSTEM PROVIDED HISTORY: R Knee pain, TECHNOLOGIST PROVIDED HISTORY: Illness/Other Reason for exam: Rt. 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 TECHNIQUE: Multiplanar, multisequence imaging of the right knee was performed without contrast FINDINGS: Laterally, the iliotibial band, fibular collateral ligament, popliteus tendon and biceps tendon are intact. The ACL is intact with thickening intermediate signal consistent with mucoid degeneration/intras ubstance ganglion cystic changes. No discrete tear identified. The lateral meniscus demonstrates horizontal undersurface oblique signal involving the body extending into the posterior horn consistent with lateral meniscus tear. There is also probable free edge fraying of the lateral meniscal body. There is intermediate grade chondrosis of the lateral compartment with more focal high-grade chondrosis involving the early flexion zone of the central weight-bearing lateral femoral condyle measuring approximately 6 mm in maximum dimension. Medially, the medial collateral ligament is intact. The PCL is intact. There is horizontal undersurface oblique tearing involving the posterior horn of the medial meniscus. There is also probably extends into the body with displaced meniscal fragment inferiorly within the medial recess (series 4, image 19). There may also be focal free edge radial tear involving the root horn attachment (series 5, image 14; series 4, image 21). There is intermediate grade chondrosis of the medial compartment without full-thickness chondral defect. The extensor mechanism is intact. Intermediate to high-grade chondrosis of the patellofemoral cartilage, most notably involving the central trochlea. The bone marrow signal is without fracture, osteonecrosis or other marrow replacement process. A moderate sized or confuse in decompresses into a lobulated and septated partially ruptured Sandra's cyst. The regional musculature is without muscle strain or tendon tear. IMPRESSION: 1. Medial and lateral meniscal tears. 2. Mucoid degeneration/intras ubstance ganglion cystic changes of the ACL without tear. 3. 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 4. Joint effusion with partially ruptured lobulated and septated Sandra's cyst. Workstation ID: [id number] Dictated by: CURT PETERS on ThuApr 03, 2021 11:09:50 AM EDT Transcribed by: CURT PETERS on ThuApr 03, 2021 11:09:50 AM EDT Finalized by: CURT PETERS on ThuApr 03, 2021 11:09:50 AM EDT Normal [facility] Comment on above: Order Comment: Injur y/Trauma or Illness?:Illness/Other How long have you had these symptoms (acute/chronic)?:Chronic Reason for exam?:Rt. knee pain worse with use pain worse behind knee x 4 months Type of Exam?:Initial Additional signs and symptoms?:na OH ORT LARGE JOINT ARTHROCEN TESISOrdered By: Bibiana Dupree on 02-14-2021 Bibiana Dupree CNP 02/14/2021 3:24 PM LG Jt Injection/Arthrocen tesis: R knee Performed by: Bibiana Dupree CNP Authorized by: Bibiana Dupree CNP CPT 82718 - Large Joint Arthrocentesis: Consent given by: [...] the procedure well with no immediate complications [facility] XR KNEE RIGHT 4+ VIEWS (SPEC MARINO VIEWS IN COMMENTS)on 02-14-2021 XR KNEE RIGHT 4+ VIEWS (SPECIFY VIEWS IN COMMENTS) EXAMINATION: XR KNEE RIGHT 4+ VIEWS (SPECIFY VIEWS IN COMMENTS) 02/14/2021 8:18 am HISTORY: ORDERING SYSTEM PROVIDED HISTORY: Right knee pain, unspecified chronicity, TECHNOLOGIST PROVIDED HISTORY: Illness/Other Reason for exam: right knee pain, no injury Cancer History: no Surgery, RadiationHistory: no Encounter Type: Initial Additional signs and symptoms: pt. states that she has swelling in the right knee and that it has instability as well. ORDERING SYSTEM PROVIDED DIAGNOSIS CODES: M25.561 Right knee pain, unspecified chronicity COMPARISON: 05/09/2009 FINDINGS: There is no acute displaced fracture or dislocation identified bilaterally. There is [id number] tricompartmental osteoarthritis involving the right knee, most significant the medial compartment. No joint effusion or layering lipohemarthrosis. There is [id number] bicompartmental osteoarthritis involving the left knee. IMPRESSION: Degenerative changes without acute osseous abnormality. Workstation ID: [id number] Dictated by: CURT PETERS on Heather Feb 14, 2021 12:45:03 PM EDT Transcribed by: CURT PETERS on Heather Feb 14, 2021 12:45:03 PM EDT Finalized by: CURT PETERS on [facility] Feb 14, 2021 12:45:03 PM EDT Normal [facility] Comment on above: Order Comment: Injur y/Trauma or Illness?:Illness/Other How long have you had these symptoms (acute/chronic)?:Chronic Reason for exam?:right knee pain, no injury History of cancer?:no Surgeries, chemotherapy, or radiation?:no Type of Exam?:Initial Additional signs and symptoms?:pt. states that she has swelling in the right knee and that it has instability as well. Mammography Screening [facility] 08-21-2020 No mammographic evidence of malignancy. BIRADS: BIRADS - CATEGORY 2 Benign, no evidence of malignancy. Normal interval follow-up is recommended in 12 months. OVERALL ASSESSMENT - BENIGN A letter of notification will be sent to the patient regarding the results. [facility], along with the National Comprehensive Cancer Network, [employer], and [facility], recommend annual screening mammograms for women age 40 and older. Workstation ID: [id number] [facility] EXAMINATION: BILATERAL DIGITAL SCREENING MAMMOGRAM WITH TOMOSYNTHESIS INDICATION: Annual screening exam. No current breast related clinical concerns. Family history of breast cancer in her great grandmother. COMPARISON: Mammograms and ultrasounds dating back to 2009 TECHNIQUE: Standard mammographic views, 2D and 3D. Computer-aided detection was utilized in the interpretation of this exam. FINDINGS: The breast tissue is heterogeneously dense. Stable benign oval mass in the lower inner left breast. No suspicious masses, calcifications, or other findings. No significant interval change. [facility] Interface, Rad In [employer] - 08/21/2020 4:00 PM EDT EXAMINATION: BILATERAL DIGITAL SCREENING MAMMOGRAM WITH TOMOSYNTHESIS INDICATION: Annual screening exam. No current breast related clinical concerns. Family history of breast cancer in her great grandmother. COMPARISON: Mammograms and ultrasounds dating back to 2009 TECHNIQUE: Standard mammographic views, 2D and 3D. Computer-aided detection was utilized in the interpretation of this exam. FINDINGS: The breast tissue is heterogeneously dense. Stable benign oval mass in the lower inner left breast. No suspicious masses, calcifications, or other findings. No significant interval change. IMPRESSION: No mammographic evidence of malignancy. BIRADS: BIRADS - CATEGORY 2 Benign, no evidence of malignancy. Normal interval follow-up is recommended in 12 months. OVERALL ASSESSMENT - BENIGN A letter of notification will be sent to the patient regarding the results. [facility], along with the National Comprehensive Cancer Network, [employer], and [facility], recommend annual screening mammograms for women age 40 and older. Workstation ID: [id number] [facility] PELVIC TRANSABDOMINAL AND TRANSVAGINALon 05-26-2019 US PELVIC TRANSABDOMINAL AND TRANSVAGINAL EXAMINATION: US PELVIC TRANSABDOMINAL AND TRANSVAGINAL HISTORY: ORDERING SYSTEM PROVIDED HISTORY: fibroids/ovaries, TECHNOLOGIST PROVIDED HISTORY: Illness/Other Reason for exam: Post-menopause bleeding Cancer History: no Surgery, RadiationHistory: no Encounter Type: Unknown Additional signs and symptoms: ORDERING SYSTEM PROVIDED DIAGNOSIS CODES: N95.0 Post-menopause bleeding D21.9 Fibroids Patient had postmenopausal bleeding 1 month ago for approximately 1 week. She is approximately 1 year postmenopausal. History of fibroids. COMPARISON: Pelvic ultrasound 05/04/2018. TECHNIQUE: Transabdominal and endovaginal imaging obtained. FINDINGS: TRANSABDOMINAL ULTRASOUND: Uterus measures 13.4 x 7.4 x 11.0 cm, contains multiple fibroids. In the right anterior body of the uterus, there is a partially calcified fibroid measuring 3.0 x 3.1 x 2.6 cm, which protrudes into the urinary bladder. An adjacent similar-appearing fibroid measures 4.4 x 4.7 x 3.7 cm. A 3rd similar-appearing fibroid measures 4.2 x 4.6 x 3.6 cm. ENDOVAGINAL ULTRASOUND: Uterus is anteverted. The uterus is diffusely heterogeneous. In addition to the fibroids seen in the submucosal region of the anterior body of the uterus, there are additional fibroids in the right lower uterine segment measuring 3.2 x 3.1 x 2.7 cm, in the midline portion measuring 2.9 x 2.9 x 3.0 cm, and in the left body of the uterus measuring 5.7 x 5.8 x 5.0 cm. The endometrium is not visualized, entirely obscured by the fibroids. Relationship of the fibroids to the endometrium cannot be accurately assessed. Neither ovary is visualized. IMPRESSION: 1. Fibroid uterus. The multiple fibroids obscure the endometrium. 2. Nonvisualization of the ovaries. [facility] Workstation ID: [id number] Dictated by: ALBERTO LEONARDO on ThuMay 27, 2019 7:36:08 AM EDT Transcribed by: SOFY PAULSON on ThuMay 27, 2019 7:40:11 AM EDT Finalized by: ALBERTO LEONARDO on ThuMay 27, 2019 12:52:11 PM EDT Normal [facility] Comment on above: Order Comment: Injur y/Trauma or Illness?:Illness/Other How long have you had these symptoms (acute/chronic)?:Unknown Reason for exam?:Post-menopause bleeding History of cancer?:no Surgeries, chemotherapy, or radiation?:no Type of Exam?:Unknown Additional signs and symptoms?: MM DIAGNOSTIC WEST BILATERAL on 02-02-2019 MM DIAGNOSTIC WEST BILATERAL EXAMINATION: DIAGNOSTIC DIGITAL BILATERAL MAMMOGRAM AND LEFT BREAST ULTRASOUND HISTORY: Annual bilateral mammogram. Follow-up for probably benign left breast masses seen sonographically. COMPARISON: Mammograms 12/23/2017 12/17/2016, 12/08/2016, 10/16/2015, 04/25/2014, 10/13/2012. Left breast ultrasound 12/17/2016, 06/22/2017, 12/23/2017. FINDINGS: Bilateral combination 2D/3D CC and MLO views were obtained. Computer-aided detection was utilized in the interpretation of this exam. The breast tissue is heterogeneously dense. There are oval circumscribed masses in the 8-9 o'clock and 1222 o'clock left breast, which are stable at least compared back to mammograms performed in 2017. This includes the mass in the 8 to 9 o'clock middle depth left breast, which demonstrates 2 years of mammographic stability. No new suspicious masses, calcifications, or other findings. No significant interval change. Targeted ultrasound then performed of the left breast. There are several oval circumscribed hypoechoic masses, which are unchanged as follows: 1 o'clock A/B measures 7 x 4 x 6 mm, 1 to 2 o'clock B measures 1.0 x 0.8 x 0.5 cm, 1 to 2 o'clock zone B measures 7 x 4 x 16 mm, 2 o'clock B measures 1.3 x 0.4 x 0.1 cm, 8 to 9 o'clock B measures 1.7 x 0.8 x 1.6 cm. Normal left axillary lymph nodes. IMPRESSION: 1. No mammographic evidence of malignancy. 2. Multiple oval circumscribed masses in the left breast demonstrates 2 years of stability and can be considered benign. No mammographic or sonographic evidence of malignancy. Results discussed with the patient. BIRADS: Category 2 - Benign, no evidence of malignancy. Normal interval follow-up is recommended in 12 months. OVERALL ASSESSMENT - BENIGN A letter of notification will be sent to the patient regarding the results. [facility], along with the [employer] [facility], the [employer], and [facility], recommend annual screening mammograms for women age 40 and older. [facility] Workstation ID: [id number] Dictated by: ALBERTO LEONARDO on ThuFeb 02, 2019 3:28:34 PM EDT Transcribed by: MAYLIN TSAI on ThuFeb 02, 2019 3:37:26 PM EDT Finalized by: ALBERTO LEONARDO on ThuFeb 02, 2019 4:02:04 PM EDT Normal [facility] Other 02-02-2019 1. No mammographic evidence of malignancy. 2. Multiple oval circumscribed masses in the left breast demonstrates 2 years of stability and can be considered benign. No mammographic or sonographic evidence of malignancy. Results discussed with the patient. BIRADS: Category 2 - Benign, no evidence of malignancy. Normal interval follow-up is recommended in 12 months. OVERALL ASSESSMENT - BENIGN A letter of notification will be sent to the patient regarding the results. [facility], along with the National [employer] [facility], the [employer], and [facility], recommend annual screening mammograms for women age 40 and older. [employer] Workstation ID: [id number] [facility] EXAMINATION: DIAGNOSTIC DIGITAL BILATERAL MAMMOGRAM AND LEFT BREAST ULTRASOUND HISTORY: Annual bilateral mammogram. Follow-up for probably benign left breast masses seen sonographically. COMPARISON: Mammograms 12/23/2017 12/17/2016, 12/08/2016, 10/16/2015, 04/25/2014, 10/13/2012. Left breast ultrasound 12/17/2016, 06/22/2017, 12/23/2017. FINDINGS: Bilateral combination 2D/3D CC and MLO views were obtained. Computer-aided detection was utilized in the interpretation of this exam. The breast tissue is heterogeneously dense. There are oval circumscribed masses in the 8-9 o'clock and 1222 o'clock left breast, which are stable at least compared back to mammograms performed in 2017. This includes the mass in the 8 to 9 o'clock middle depth left breast, which demonstrates 2 years of mammographic stability. No new suspicious masses, calcifications, or other findings. No significant interval change. Targeted ultrasound then performed of the left breast. There are several oval circumscribed hypoechoic masses, which are unchanged as follows: 1 o'clock A/B measures 7 x 4 x 6 mm, 1 to 2 o'clock B measures 1.0 x 0.8 x 0.5 cm, 1 to 2 o'clock zone B measures 7 x 4 x 16 mm, 2 o'clock B measures 1.3 x 0.4 x 0.1 cm, 8 to 9 o'clock B measures 1.7 x 0.8 x 1.6 cm. Normal left axillary lymph nodes. [facility] US BREAST LEFT LIMITEDon US BREAST LEFT LIMITED EXAMINATION: DIAGNOSTIC DIGITAL BILATERAL MAMMOGRAM AND LEFT BREAST ULTRASOUND HISTORY: Annual bilateral mammogram. Follow-up for probably benign left breast masses seen sonographically. COMPARISON: Mammograms 12/23/2017 12/17/2016, 12/08/2016, 10/16/2015, 04/25/2014, 10/13/2012. Left breast ultrasound 12/17/2016, 06/22/2017, 12/23/2017. FINDINGS: Bilateral combination 2D/3D CC and MLO views were obtained. Computer-aided detection was utilized in the interpretation of this exam. The breast tissue is heterogeneously dense. There are oval circumscribed masses in the 8-9 o'clock and 1222 o'clock left breast, which are stable at least compared back to mammograms performed in 2017. This includes the mass in the 8 to 9 o'clock middle depth left breast, which demonstrates 2 years of mammographic stability. No new suspicious masses, calcifications, or other findings. No significant interval change. Targeted ultrasound then performed of the left breast. There are several oval circumscribed hypoechoic masses, which are unchanged as follows: 1 o'clock A/B measures 7 x 4 x 6 mm, 1 to 2 o'clock B measures 1.0 x 0.8 x 0.5 cm, 1 to 2 o'clock zone B measures 7 x 4 x 16 mm, 2 o'clock B measures 1.3 x 0.4 x 0.1 cm, 8 to 9 o'clock B measures 1.7 x 0.8 x 1.6 cm. Normal left axillary lymph nodes. IMPRESSION: 1. No mammographic evidence of malignancy. 2. Multiple oval circumscribed masses in the left breast demonstrates 2 years of stability and can be considered benign. No mammographic or sonographic evidence of malignancy. Results discussed with the patient. BIRADS: Category 2 - Benign, no evidence of malignancy. Normal interval follow-up is recommended in 12 months. OVERALL ASSESSMENT - BENIGN A letter of notification will be sent to the patient regarding the results. [facility], along with the National [employer] Cancer [facility], [employer], and [facility], recommend annual screening mammograms for women age 40 and older. [employer] Workstation ID: [id number] Dictated by: ALBERTO LEONARDO on ThuFeb 02, 2019 3:28:34 PM EDT Transcribed by: MAYLIN TSAI on ThuFeb 02, 2019 3:37:26 PM EDT Finalized by: ALBERTO LEONARDO on ThuFeb 02, 2019 4:02:04 PM EDT Normal [facility] US Breast Left Limitedon US Breast Left Limited Stable mammograph y. Multiple solid nodules in the left breast, compatible with benign fibroepithelial lesions. We did scan a nodule in the 8-9 o'clock region, which I believe is not new and can be seen in retrospect on the prior mammogram. Follow-up again in 1 year's time with diagnostic mammography and left breast ultrasound is recommended. BIRADS: Category 3 - Findings are probably benign. A final left breast ultrasound is recommended in 1 year to complete a 2-year surveillance. She will be due for mammography at that time. OVERALL ASSESSMENT - PROBABLY BENIGN A letter of notification will be sent to the patient regarding the results. [facility], along with the National Comprehensive Cancer Network, the [employer], and [facility], recommend annual screening mammograms for women age 40 and older. [employer] Workstation ID: [id number] Invalid Interpretation Code [facility] US Breast Left Limited EXAMINATION: US BREAST LEFT LIMITED; MM DIAGNOSTIC WEST BILATERAL HISTORY: Dx: N63.0 (Breast nodule). Multiple hypoechoic, probably solid nodules in the left breast. The patient states she is probably not totally postmenopausal at this point in time. Her last menstrual period was in September. COMPARISON: Mammography from 2014 and 2016. I have 2 left breast ultrasounds. The first was done on 12/17/2016 and a follow-up scan on 06/22/2017. TECHNIQUE: We obtained standard views of each breast with 2D and 3D imaging. Computer-aided detection was utilized in the interpretation of this exam. Limited left breast ultrasound was carried out. BREAST DENSITY: The breast tissue is heterogeneously dense. FINDINGS: Mammographic findings : The right breast is stable. No masses, suspicious microcalcifications or areas of architectural distortion are seen. The left breast demonstrates nodularity in the upper-outer aspect with 1 rounded nodule and 1 elongated nodule seen, measuring 0.5 and 0.9 cm respectively. In the 8-9 o'clock region of the left breast on the 3D images, we see a circumscribed, 1.7 cm mass that was likely present before but partially obscured by the glandular tissue which is involuted minimally. No suspicious microcalcifications , distortion, or abnormal lymphadenopathy is seen. Ultrasound findings: Left breast ultrasound shows a hypoechoic nodule at 1 o'clock, measuring 0.5 x 0.6 x 0.3 cm. This is stable. At 1-2 o'clock, there are 2 adjacent nodules. One measures 0.7 x 1.1 x 0.4 cm. This is stable. Near this is a 1.5 x 0.7 x 0.4 cm nodule. This is stable. At 2 o'clock B, there is a 1.2 x 0.4 x 1.2 cm hypoechoic nodule, which is stable. At 8-9 o'clock B, there is a 1.7 x 0.8 x 1.8 cm solid, avascular nodule that is soft on elastography. This shows good through transmission and is compatible with another benign fibroepithelial lesion. We scanned the axilla, and the axillary lymph nodes look normal. I discussed these findings with the patient. I explained to her that we do like to see stability for a 2-year time frame. In addition, I told her the nodule at 8-9 o'clock probably is not a new nodule. We agreed to do a final 2-year follow-up 1 year from now, at which time she will be due for her bilateral mammography. If these are stable at that time, she can then revert to annual screening mammography. Invalid Interpretation Code [employer] [facility] Follicle Stimulating Hormone on 09-01-2017 Follitropin (FSH) 38.5 m[IU]/mL Invalid Interpretation Code [facility] Follicle Stimulating Hormone FSH Female: Follicular phase: 3.0-20.0 Midcycle peak: 9.0-26.0 Luteal phase: 1.0-12.0 Post menopausal: 18.0-153.0 Invalid Interpretation Code [facility] US Breast Left Limitedon US Breast Left Limited Multiple oval circumscribed hypoechoic masses in the 1-2 o'clock left breast remain stable, probably benign. A six-month follow-up ultrasound is recommended to evaluate continued, more long-term stability. She will also be due for her annual bilateral mammogram at that time. Results discussed with the patient. BIRADS: Category 3 - Findings are probably benign. A short interval followup is recommended in 6 months OVERALL ASSESSMENT - PROBABLY BENIGN [facility]/[employer] Workstation ID: [id number] Invalid Interpretation Code [facility] [employer] [facility] US Breast Left Limited EXAMINATION: LEFT BREAST ULTRASOUND HISTORY: Six-month followup for probably benign masses in the left breast. COMPARISON: Left breast ultrasound 12/17/2016. Mammograms 12/17/2016, 12/08/2016. FINDINGS: Targeted ultrasound performed of the left breast to follow the previously seen probably benign masses. At 1 o'clock A/B, there is a 5 x 6 x 3 mm oval circumscribed hypoechoic mass with no internal blood flow, which is unchanged compared to prior, when it measured 6 x 5 x 3 mm. At 1-2 o'clock zone B, there is a 1.0 x 0.7 x 0.4 cm oval circumscribed hypoechoic mass, which is not significantly changed compared to prior, when it measured approximately 1.0 x 0.4 x 0.9 cm. At 1-2 o'clock zone B there is an additional 1.6 x 0.8 x 0.4 cm oval circumscribed hypoechoic mass with no internal blood flow, unchanged compared to prior, when it measured 1.5 x 0.7 x 0.4 cm. At 2 o'clock zone B, there is a 1.4 x 0.4 x 1.2 cm oval circumscribed hypoechoic mass, which is unchanged compared to prior, when it measured 1.4 x 0.4 x 1.2 cm. Normal left axillary lymph nodes. Invalid Interpretation Code [facility] Vital Signs Date Time Vital Sign Value Performing Clinician Facility 06-06-2025 08:59-0400 Body height 182.[address] Michell Tirado MD Work Phone: [place] 06-06-2025 08:59-0400 Body mass index (BMI) [Ratio] 33.7 kg/m2 Dr. Michell Tirado MD Work Phone: [place] 06-06-2025 08:59-0400 Body weight 112.[address] Michell Tirado MD Work Phone: [place] 06-06-2025 08:59-0400 Diastolic blood pressure 78 mm[Hg] Dr. Michell Tirado MD Work Phone: [place] 06-06-2025 08:59-0400 Heart rate 58 /min Dr. Michell Tirado MD Work Phone: [place] 06-06-2025 08:59-0400 Respiratory rate 16 /min Dr. Michell Tirado MD Work Phone: [place] 06-06-2025 08:59-0400 Systolic blood pressure 124 mm[Hg] Dr. Michell Tirado MD Work Phone: [place] 12-20-2024 09:41-0500 Body height 182.[address] Michell Tirado MD Work Phone: [place] 12-20-2024 09:41-0500 Body mass index (BMI) [Ratio] 33.9 kg/m2 Dr. Michell Tirado MD Work Phone: [place] 12-20-2024 09:41-0500 Body temperature 98.9 [degF] Dr. Michell Tirado MD Work Phone: [place] 12-20-2024 09:41-0500 Body weight 113.[address] Michell Tirado MD Work Phone: [place] 12-20-2024 09:41-0500 Diastolic blood pressure 66 mm[Hg] Dr. Michell Tirado MD Work Phone: [place] 12-20-2024 09:41-0500 Heart rate 85 /min Dr. Michell Tirado MD Work Phone: [place] 12-20-2024 09:41-0500 SaO2% (BldA) [Mass fraction] 97 % Dr. Michell Tirado MD Work Phone: [place] 12-20-2024 09:41-0500 Systolic blood pressure 118 mm[Hg] Dr. Michell Tirado MD Work Phone: [place] 09-15-2024 11:45-0500 Body temperature 97.6 [degF] Dr. Michell Tirado MD Work Phone: [place] 09-15-2024 11:45-0500 Diastolic blood pressure 64 mm[Hg] Dr. Michell Tirado MD Work Phone: [place] 09-15-2024 11:45-0500 Heart rate 62 /min Dr. Michell Tirado MD Work Phone: [place] 09-15-2024 11:45-0500 Respiratory rate 16 /min Dr. Michell Tirado MD Work Phone: [place] 09-15-2024 11:45-0500 SaO2% (BldA) [Mass fraction] 98 % Dr. Michell Tirado MD Work Phone: [place] 09-15-2024 11:45-0500 Systolic blood pressure 104 mm[Hg] Dr. Michell Tirado MD Work Phone: [place] 09-15-2024 10:11-0500 Body mass index (BMI) [Ratio] 33.7 kg/m2 Dr. Michell Tirado MD Work Phone: [place] 09-15-2024 10:11-0500 Body weight 112.[address] Michell Tirado MD Work Phone: [place] 02-10-2024 08:11-0400 Body height 185.[address] Michell Tirado Work Phone: [place] 02-10-2024 08:11-0400 Body mass index (BMI) [Ratio] 6.8 kg/m2 Dr. Michell Tirado Work Phone: [place] 02-10-2024 08:11-0400 Body weight 23.[address] Michell Tirado Work Phone: [place] 02-10-2024 08:11-0400 Diastolic blood pressure 85 mm[Hg] Dr. Michell Tirado Work Phone: [place] 02-10-2024 08:11-0400 Heart rate 68 /min Dr. Michell Tirado Work Phone: [place] 02-10-2024 08:11-0400 Respiratory rate 17 /min Dr. Michell Tirado Work Phone: [place] 02-10-2024 08:11-0400 SaO2% (BldA) [Mass fraction] 97 % Dr. Michell Tirado Work Phone: [place] 02-10-2024 08:11-0400 Systolic blood pressure 137 mm[Hg] Dr. Michell Tirado Work Phone: [place] 01-01-2024 10:51-0500 Body height 185.[address] Michell Tirado Work Phone: [place] 01-01-2024 10:51-0500 Body mass index (BMI) [Ratio] 32.8 kg/m2 Dr. Michell Tirado Work Phone: [place] 01-01-2024 10:51-0500 Body weight 112.[address] Michell Tirado Work Phone: [place] 01-01-2024 10:51-0500 Diastolic blood pressure 78 mm[Hg] Dr. Michell Tirado Work Phone: [place] 01-01-2024 10:51-0500 Systolic blood pressure 114 mm[Hg] Dr. Michell Tirado Work Phone: [place] 11-27-2023 15:01-0500 Body mass index (BMI) [Ratio] 33.6 kg/m2 Dr. Michell Tirado Work Phone: [place] 11-27-2023 15:01-0500 Body weight 115.[address] Michell Tirado Work Phone: [place] 11-27-2023 15:01-0500 Diastolic blood pressure 79 mm[Hg] Dr. Michell Tirado Work Phone: [place] 11-27-2023 15:01-0500 Heart rate 62 /min Dr. Michell Tirado Work Phone: [place] 11-27-2023 15:01-0500 Respiratory rate 18 /min Dr. Michell Tirado Work Phone: [place] 11-27-2023 15:01-0500 SaO2% (BldA) [Mass fraction] 95 % Dr. Michell Tirado Work Phone: [place] 11-27-2023 15:01-0500 Systolic blood pressure 133 mm[Hg] Dr. Michell Tirado Work Phone: [place] 12-22-2022 08:29-0500 Body height 185.[address] Michell Tirado Work Phone: [place] 12-22-2022 08:29-0500 Body mass index (BMI) [Ratio] 33 kg/m2 Dr. Michell Tirado Work Phone: [place] 12-22-2022 08:29-0500 Body weight 113.[address] Michell Tirado Work Phone: [place] 12-22-2022 08:29-0500 Diastolic blood pressure 78 mm[Hg] Dr. Michell Tirado Work Phone: [place] 12-22-2022 08:29-0500 Systolic blood pressure 121 mm[Hg] Dr. Michell Tirado Work Phone: [place] 08-06-2022 10:12-0400 Body height 185.[address] Michell Tirado Work Phone: [place] Work Phone: 08-06-2022 10:12-0400 Body mass index (BMI) [Ratio] 32.4 kg/m2 Dr. Michell Tirado Work Phone: [place] Work Phone: 08-06-2022 10:12-0400 Body weight 111.[address] Michell Tirado Work Phone: [place] Work Phone: 08-06-2022 10:12-0400 Diastolic blood pressure 80 mm[Hg] Dr. Michell Tirado Work Phone: [place] Work Phone: 08-06-2022 10:12-0400 Heart rate 68 /min Dr. Michell Tirado Work Phone: [place] Work Phone: 08-06-2022 10:12-0400 Respiratory rate 18 /min Dr. Michell Tirado Work Phone: [place] Work Phone: 08-06-2022 10:12-0400 SaO2% (BldA) [Mass fraction] 97 % Dr. Michell Tirado Work Phone: [place] Work Phone: 08-06-2022 10:12-0400 Systolic blood pressure 134 mm[Hg] Dr. Michell Tirado Work Phone: [place] Work Phone: 12-13-2021 10:01-0500 Body height 185.[address] Michell Tirado Work Phone: [place] Work Phone: 12-13-2021 10:01-0500 Body mass index (BMI) [Ratio] 32.4 kg/m2 Dr. Michell Tirado Work Phone: [place] Work Phone: 12-13-2021 10:01-0500 Body weight 111.[address] Michell Tirado Work Phone: [place] Work Phone: 12-13-2021 10:01-0500 Diastolic blood pressure 77 mm[Hg] Dr. Michell Tirado Work Phone: [place] Work Phone: 12-13-2021 10:01-0500 Heart rate 69 /min Dr. Michell Tirado Work Phone: [place] Work Phone: 12-13-2021 10:01-0500 Respiratory rate 16 /min Dr. Michell Tirado Work Phone: [place] Work Phone: 12-13-2021 10:01-0500 Systolic blood pressure 128 mm[Hg] Dr. Michell Tirado Work Phone: [place] Work Phone: 06-21-2021 14:14-0400 Body height 185.4 cm Kanu Phipps MD Work Phone: [facility] 06-21-2021 14:14-0400 Body mass index (BMI) [Ratio] 31.66 kg/m2 Kanu Phipps MD Work Phone: [facility] 06-21-2021 14:14-0400 Body weight 108.86 kg Kanu Phipps MD Work Phone: [facility] 06-21-2021 14:14-0400 Diastolic blood pressure 85 mm[Hg] Kanu Phipps MD Work Phone: [facility] 06-21-2021 14:14-0400 Heart rate 81 /min Kanu Phipps MD Work Phone: [facility] 06-21-2021 14:14-0400 Systolic blood pressure 129 mm[Hg] Kanu Phipps MD Work Phone: [facility] 06-15-2021 18:29-0400 Diastolic blood pressure 84 mm[Hg] Herman Taylor MD Work Phone: [facility] 06-15-2021 18:29-0400 Systolic blood pressure 130 mm[Hg] Herman Taylor MD Work Phone: [facility] 06-15-2021 18:26-0400 Body height 185.4 cm Herman Taylor MD Work Phone: [facility] 06-15-2021 18:26-0400 Body mass index (BMI) [Ratio] 31.66 kg/m2 Herman Taylor MD Work Phone: [facility] 06-15-2021 18:26-0400 Body temperature 98.4 [degF] Herman Taylor MD Work Phone: [facility] 06-15-2021 18:26-0400 Body weight 108.86 kg Herman Taylor MD Work Phone: [facility] 06-15-2021 18:26-0400 Heart rate 67 /min Herman Taylor MD Work Phone: [facility] 06-15-2021 18:26-0400 Respiratory rate 18 /min Herman Taylor MD Work Phone: [facility] 06-15-2021 18:26-0400 SaO2% (BldA) [Mass fraction] 95 % Herman Taylor MD Work Phone: [facility] 02-14-2021 08:02-0400 Body height 182.9 cm Bibiana Dupree CNP Work Phone: [facility] 02-14-2021 08:02-0400 Body mass index (BMI) [Ratio] 32.55 kg/m2 Bibiana Dupree CNP Work Phone: [facility] 02-14-2021 08:02-0400 Body weight 108.86 kg Bibiana Dupree CNP Work Phone: [facility] Encounters Encounter Date Encounter Type Care Provider Facility Start: 06-06-2025 End: 06-06-[address] Michell Tirado MD Work Phone: -[facility] Start: 06-06-2025 End: 06-06-2025 Patient encounter procedure Jim PITTMAN -[facility] Work Phone: Start: 06-06-2025 End: 06-06-2025 Patient encounter status Jim ARMENDARIZC [facility] Comment on above: Bunionectomy 06/16/25 Start: 06-06-2025 ambulatory [facility] Facility: [facility] Start: 06-05-2025 End: 06-05-2025 Admission to establishment ROBERT PASTRANA DPM [facility] Start: 06-05-2025 End: 06-05-2025 ambulatory [facility] Facility:[facility] Start: 04-25-2025 Non-patient / Non-visit Dr. Janine george MD -[facility] Work Phone: Start: 04-03-[facility] [place] Start: 03-14-2025 End: 03-14-[address] Michell Tirado MD Work Phone: [place] Work Phone: Start: 03-14-2025 End: 03-14-[address] Michell Tirado MD -Outpatient [facility] Imaging Work Phone: Start: 03-14-2025 End: 03-14-2025 ambulatory Michell Moscoso Facility:[place] Start: 01-26-2025 End: 01-26-[address] Michell Tirado MD Work Phone: [place] Work Phone: Start: 01-26-2025 End: 01-26-[address] Michell Tirado MD -Physical Therapy Work Phone: Start: 01-10-[address] Michell estrada MD -Physical Therapy Work Phone: Start: 12-27-2024 End: 12-27-[address] Michell Tirado MD Work Phone: [place] Work Phone: Start: 12-27-2024 End: 12-27-2024 Patient encounter procedure Jazlyn REED -Laboratory, [place] Work Phone: Start: 12-27-2024 End: 12-27-2024 ambulatory Jazlyn REED Facility:[place] Start: 12-20-2024 End: 12-20-2024 Patient encounter procedure Keith REED -[facility] Work Phone: Start: 12-20-2024 End: 12-20-2024 ambulatory Keith REED Facility:[facility] Start: 09-15-2024 Non-patient / Non-visit Abilio Steward nd DO -[facility] Start: 09-15-2024 End: 09-15-2024 Admission to same day surgery center Abilio Estevez DO -Endoscopy Work Phone: Start: 09-15-2024 End: 09-15-2024 ambulatory Abilio Estevez Facility:[place] Start: 08-03-2024 End: 08-03-2024 ambulatory Julius Warren Facility:[facility] Start: 08-01-2024 End: 08-[facility] Start: 07-21-2024 ambulatory Olivia Birmingham Facility:[facility] Start: 06-23-2024 End: 06-23-2024 ambulatory Michell Tirado Facility:[facility] Start: 06-20-2024 End: 06-20-2024 ambulatory Michell Tirado Facility:[place] Start: 02-10-2024 End: 02-10-[address] Michell Tirado Work Phone: [place] Work Phone: Start: 02-10-2024 End: 02-10-[address] Michell Tirdao Work Phone: [place] Spec[facility] Work Phone: Start: 02-10-2024 End: 02-10-[address] Michell Tirado Work Phone: [facility] Work Phone: Start: 01-29-2024 End: 01-29-[address] Michell Tirado Work Phone: [place] Work Phone: Start: 01-29-2024 End: 01-29-[address] Michell Tirado Work Phone: [place] Work Phone: Start: 01-26-2024 End: 01-26-[address] Michell Tirado Work Phone: [place] Work Phone: Start: 01-26-2024 End: 01-26-[address] Michell Tirado Work Phone: [place] Work Phone: Start: 01-01-2024 End: 01-01-[address] Michell Tirado Work Phone: [facility] Work Phone: Start: 01-01-2024 End: 01-01-[address] Michell Tirado Work Phone: [place] Work Phone: Start: 01-01-2024 End: 01-01-[address] Michell Tirado Work Phone: [place] Work Phone: Start: 11-27-2023 End: 11-27-[address] Michell Tirado Work Phone: [facility] Work Phone: Start: 11-20-2023 End: 11-20-2023 ambulatory [place] Work Phone: Start: 11-20-2023 End: 11-20-2023 Patient encounter procedure [place] [place] Work Phone: Start: 10-14-2023 End: 10-14-2023 Patient encounter procedure [place], [facility] Work Phone: Start: 12-22-2022 End: 12-22-[address] Michell Tirado Work Phone: [place] Work Phone: Start: 12-22-2022 End: 12-22-[address] Michell Tirado Work Phone: [place], Spec[facility] Start: 12-22-2022 End: 12-22-[address] Michell Tirado Work Phone: [facility] Start: 10-31-2022 Documentation procedure Mammog yosef Coordinator [facility] Start: 10-31-2022 Letter encounter Mammography Coordinator [facility] Department Start: 10-24-2022 Documentation procedure Mammog yosef Coordinator [facility] Start: 10-24-2022 Letter encounter Mammography Coordinator [facility] Start: 10-21-2022 Documentation procedure Mammog yosef Coordinator [facility] [facility] Start: 10-21-2022 Letter encounter Mammography Coordinator [facility] Department Start: 10-17-2022 End: 10-17-2022 ambulatory Facility:[facility] Start: 08-06-2022 End: 08-06-[address] Michell Tirado Work Phone: [place] Start: 08-06-2022 End: 08-06-[address] Michell Tirado Work Phone: [place] Work Phone: Start: 08-06-2022 End: 08-06-[address] Michell Tirado Work Phone: [place] Start: 02-04-2022 Non-patient / Non-visit Dr. Clinton Tirado Work Phone: [place] Start: 02-04-2022 End: 02-04-[address] Michell Tirado Work Phone: [place] Start: 12-13-2021 End: 12-13-[address] Michell Tirado Work Phone: [place] Start: 08-22-2021 End: 08-23-2021 ambulatory [facility] Start: 07-19-2021 End: 07-19-2021 ambulatory KANU PHIPPS [facility] Start: 07-19-2021 End: 07-19-2021 Postop follow up visit related to original px Kanu Phipps MD Work Phone: [facility] Comment on above: S/P arthroscopy of r ight knee (Primary Dx) Start: 07-09-2021 End: 07-10-2021 Orders Only Suyapa Corado [facility] Comment on above: Acute medial meniscu s tear of right knee, subsequent encounter (Primary Dx); S/P right knee arthroscopy Start: 07-05-2021 End: 07-05-2021 ambulatory [facility] Start: 06-27-2021 ambulatory KANU PHIPPS [facility] Amb[facility] Start: 06-21-2021 End: 06-21-2021 ambulatory KANU PHIPPS [facility] Start: 06-21-2021 End: 06-21-2021 Office outpatient visit 15 minutes Kanu Phipps MD Work Phone: [facility] Comment on above: Acute medial meniscu s tear of right knee, subsequent encounter (Primary Dx); Chondromalacia of patellofemoral joint, right Start: 06-15-2021 End: 06-15-2021 ambulatory HERMAN TAYLOR [facility] Start: 06-15-2021 End: 06-15-2021 Office outpatient visit 15 minutes Herman Taylor MD Work Phone: [facility] Maureen Doan Comment on above: Sore throat (Primary Dx) Start: 05-29-2021 End: 05-29-2021 Admission to same day surgery center Kanu Phipps MD Work Phone: [facility] Comment on above: Acute medial meniscu s tear of right knee, initial encounter (Primary Dx); Chondromalacia of patellofemoral joint, right Start: 04-24-2021 End: 04-24-2021 ambulatory [facility] Start: 04-24-2021 End: 04-28-2021 ambulatory [facility] Start: 04-24-2021 End: 04-24-2021 Office outpatient visit 10 minutes Bibiana Dupree COST ANALYST Work Phone: [facility] Comment on above: Acute lateral menisc us tear of right knee, initial encounter (Primary Dx); Acute medial meniscus tear of right knee, initial encounter Start: 04-24-2021 End: 04-24-2021 ambulatory Bibiana Dupree COST ANALYST [facility] Phone: [facility] Comment on above: Primary osteoarthrit is of right knee (Primary Dx); Chondromalacia patellae of right knee Start: 04-10-2021 End: 04-14-2021 ambulatory [facility] Start: 04-10-2021 End: 04-10-2021 ambulatory Bibiana Dupree COST ANALYST Work Phone: [facility] Comment on above: Primary osteoarthrit is of right knee (Primary Dx); Chondromalacia patellae of right knee Start: 04-05-2021 End: 04-09-2021 [facility] Start: 04-05-2021 End: 04-05-2021 ambulatory Bibiana Dupree COST ANALYST Work Phone: [facility] Comment on above: Primary osteoarthrit is of right knee (Primary Dx); Chondromalacia patellae of right knee Start: 04-02-2021 End: 04-03-2021 ambulatory [facility] Start: 03-06-2021 End: 03-10-2021 ambulatory [facility] Start: 02-27-2021 End: 03-03-2021 ambulatory [facility] Start: 02-27-2021 End: 02-27-2021 ambulatory Bibiana Luci Huangck COST ANALYST Work Phone: [facility] Comment on above: Primary osteoarthrit is of right knee; Chondromalacia patellae of right knee; Chondromalacia of patellofemoral joint, right Start: 02-14-2021 End: 02-18-2021 ambulatory [facility] Start: 02-14-2021 End: 02-14-2021 Office outpatient new 45 minutes Bibiana Dupree COST ANALYST Work Phone: [facility] Comment on above: Chondromalacia of pa tellofemoral joint, right (Primary Dx); Primary osteoarthritis of right knee Start: 12-08-2020 End: 12-08-2020 Patient encounter procedure Mary Veronikamaria del carmen Martinez Work Phone: [facility] Start: 11-09-2020 End: 11-09-2020 Patient encounter procedure Covid Vaccine 1st Dose Oes Pcp [facility] Start: 08-21-2020 End: 08-21-2020 Subsequent hospital visit by physician Ruba Jacobsen Work Phone: [facility] Comment on above: Visit for screening mammogram Start: 05-26-2019 End: 05-27-2019 Patient encounter procedure RUBA JACOBSEN [facility] Start: 05-26-2019 End: 05-26-2019 Subsequent hospital visit by physician Ruba Jacobsen Work Phone: [facility] Ultrasound Comment on above: Post-menopause bleed ing; Fibroids Start: 02-02-2019 End: 02-03-2019 Patient encounter procedure INES CH [facility] Start: 02-02-2019 End: 02-02-2019 Patient encounter procedure Ines Ch Work Phone: [facility] Comment on above: Breast nodule Start: 02-02-2019 End: 02-02-2019 Subsequent hospital visit by physician Ines Ch Work Phone: [facility] Comment on above: Breast nodule Start: 12-23-2017 End: 12-23-2017 Ambulatory Ruba Jacobsen Work Phone: [facility] Start: 09-01-2017 End: 09-01-2017 Ambulatory Ruba Jacobsen Work Phone: [facility] [employer] [facility] Start: 06-22-2017 End: 06-22-2017 Ambulatory Ruba Jacobsen Work Phone: [facility] US Procedures Date Procedure Procedure Detail Performing Clinician Start: 03-14-2025 Screening mammography Trav Tirado MD Work Phone: Start: 01-29-[address] Michell Tirado Work Phone: Start: 01-26-2024 Screening mammography Trav Tirado Work Phone: Start: 10-14-2023 Pelvic echography Start: 10-17-2022 Mammography Mammograph y Coordinator Start: 02-14-2021 Arthrocentesis aspir &/inj major jt/bursa w/o us Bibiana Dupree CNP Work Phone: Start: 08-24-2020 Microscopic observat ion [Identifier] in Cervix by Cyto stain Covid Oes Pcp c Start: 08-21-2020 MG Breast - bilatera l screening Ruba Jacobsen Work Phone: Start: 08-21-2020 Mammography Covid Oes Pcp c Start: 02-02-2019 Us breast uni real t mirna with image limited Ines Ch Work Phone: Start: 02-02-2019 MG Breast - bilatera l diagnostic Ines Ch Work Phone: Start: 02-02-2019 Mammography Ruba bills Start: 04-06-2018 Microscopic observat ion [Identifier] in Cervix by Cyto stain Ines Ch Start: 12-23-2017 Mammography Ines Mor ris Colonoscopy ROBERT PASTRANA DP M Knee joint operation ROBERT Bills UPPAN DPM Comment on above: RIGHT, SCOPE Plan of Treatment Date Care Activity Detail Author Start: 09-15-2024 Colonoscopy w/biopsy single/multiple COLONOSCOPY AND BIOPSY [place] Start: 09-15-2024 Colsc flx w/rmvl of tumor polyp lesion snare tq COLONOSCOPY W/LESION REMOVAL [place] Start: 09-15-2024 Patient discharge [facility] Start: 10-17-2023 Mammography MAMMOGRAM [facility] Start: 08-24-2023 Screening for malign ant neoplasm of cervix Pap Smear [facility] Start: 12-22-2022 Patient referral [facility] Work Phone: Start: 10-26-2022 DEPRESSION ASSESSMENT DEPRESSION ASS ESSMENT [facility] Start: 08-24-2021 History and physical examination, annual for health maintenance Wellness Visit [facility] Start: 08-21-2021 Screening for malign ant neoplasm of breast Mammogram [facility] Start: 08-21-2021 Screening mammography [facility]ogram [facility] Start: 07-19-2021 End: 07-19-2021 Follow-up encounter 07/19/2021 Follow-Up Sports Medicine Kanu Phipps MD [address] [place] [address] [facility] Start: 07-10-2021 End: 09-08-2022 Ultrasound duplex venous leg right Ultrasound duplex venous leg right Vascular Ultrasound Routine Acute medial meniscus tear of right knee, subsequent encounter S/P right knee arthroscopy Expected: 07/10/2021, Expires: 09/08/2022 [facility] Work Phone: Comment on above: Expected: 07/10/2021 , Expires: 09/08/2022 Start: 07-09-2021 End: 07-09-2021 Patient encounter procedure 07/09/2021 Appointment Cardiology Kanu Phipps MD [address] [place] [address] [facility] Start: 07-05-2021 End: 07-05-2021 Admission to same day surgery center 07/05/2021 Surgery Kanu Phipps MD [address] [place] [address] Right knee arthroscopy partial medial meniscectomy chondroplasty [facility] Comment on above: Right knee arthrosco py partial medial meniscectomy chondroplasty Start: 07-05-2021 End: 07-05-2021 ARTHROSCOPY KNEE WITH OR WITHOUT MENISECTOMY [facility] Main OR Start: 07-05-2021 Subsequent hospital visit by physician [facility] Start: 06-26-2021 Influenza vaccination [facility] Start: 06-21-2021 End: 06-21-2021 Patient encounter procedure [facility] Start: 04-17-2021 End: 04-17-2021 ambulatory 04/17/2021 Treatment Rehabilitation Bibiana Dupree CNP [address] [place] [address] [phone] Isma Hunter PT [facility] Start: 04-10-2021 End: 04-10-2021 ambulatory 04/10/2021 Treatment Rehabilitation Bibiana Dupree CNP [address] [place] [address] [phone] Ayush Roth PTA [facility] Start: 06-12-2021 Screening for malign ant neoplasm of cervix PAP SMEAR [facility] Start: 04-05-2021 End: 04-05-2021 ambulatory 04/05/2021 Treatment Rehabilitation DupreeBibiana, COST ANALYST [address] [place] [address] [phone] Ayush Roth PTA [facility] Start: 04-01-2021 End: 04-01-2021 ambulatory 04/01/2021 Treatment Rehabilitation DupreeBibiana medina, COST ANALYST [address] [place] [address] [phone] Ayush Roth PTA [facility] Start: 03-06-2021 End: 03-06-2021 ambulatory 03/06/2021 Treatment Rehabilitation Bibiana Dupree, BERNY [address] [place] [address] [phone] Ayush Roth PTA [facility] Start: 12-07-2020 COVID-19 Vaccine (Moderna) (#2) COVID-19 Vaccine (Moderna) (#2) [facility] Start: 12-07-2020 End: 12-07-2020 Immunization 12/07/2020 Immunization Primary Care Mary Martinez MD [address] [facility] [address] [place] [address] [phone] [facility] Start: 08-24-2020 End: 08-24-2020 Office Visit 08/24/2020 Office Visit Obstetrics and Gynecology Chasity Durand CNP [address] [facility] [address] [place] [address] [phone] [facility] Start: 08-09-2020 History and physical examination, annual for health maintenance Wellness Visit [facility] Start: 06-26-2020 Influenza vaccination Sequenti al Influenza Vaccine (#1) [facility] Start: 06-26-2020 Influenza vaccinatio n given Sequential Influenza Vaccine (#1) [facility] Start: 02-03-2020 Screening mammography Mammogram [facility] Start: 11-17-2019 Cytopathology proced ure, preparation of smear, genital source PAP SMEAR [facility] Work Phone: Start: 11-17-2019 Screening for malign ant neoplasm of cervix PAP SMEAR [facility] Start: 06-26-2019 Influenza vaccinatio n given SEQUENTIAL INFLUENZA VACCINE (#1) [facility] Start: 06-23-2019 End: 06-23-2019 Office Visit 06/23/2019 Office Visit Obstetrics and Gynecology Ines Ch, COST ANALYST [address] [facility] [address] [place] [address] [phone] [facility] Start: 04-08-2019 End: 04-08-2019 Office Visit 04/08/2019 Office Visit Obstetrics and Gynecology Jazlyn Gee, COST ANALYST [address] [facility] [address] [place] [address] [phone] [facility] Start: 04-06-2019 History and physical examination, annual for health maintenance Wellness Visit [facility] Start: 12-23-2018 Protein mass conc Mammogram [facility] Start: 12-23-2018 Screening mammography Mammogram [facility] Start: 06-26-2018 Influenza vaccination SEQUENTI AL INFLUENZA VACCINE (Season Ended) [facility] Start: 06-26-2018 Influenza vaccinatio n given SEQUENTIAL INFLUENZA VACCINE (#1) [facility] Start: 06-26-2017 Influenza vaccination SEQUENTI AL INFLUENZA VACCINE (#1) [facility] Start: 06-26-2017 SEQUENTIAL INFLUENZA VACCINE (#1) SEQUENTIAL INFLUENZA VACCINE (#1) [facility] Work Phone: Start: 2012 Administration of he rpes zoster vaccine Zoster Vaccines (1 of 2) [facility] Start: 2012 Screening for malign ant neoplasm of colon [facility] Start: 2012 SHINGRIX VACCINE (1 of 2) SHINGRIX VACCINE (1 of 2) [facility] Start: 2007 COLOGUARD (FIT-DNA) COLOGUARD (FIT-D NA) [facility] Start: 2007 Colonoscopy COLONOSCOPY [facility] Start: 2007 COLORECTAL CANCER SCREENING COLORECTAL CANCER SCREENING [facility] Start: [address] COLONOGRAPHY [facility] Start: 2007 DIABETES SCREEN DIABETES SCREEN [facility] Start: 2007 FECAL OCCULT BLOOD FECAL OCCULT BLOO D [facility] Start: 2007 LIPID SCREEN LIPID SCREEN [facility] Start: 2007 SIGMOIDOSCOPY SIGMOIDOSCOPY [facility] Start: 1992 HPV TESTING HPV TESTING [facility] Start: 1983 PAP TESTING PAP TESTING [facility] Start: 1981 Urine microalbumin profile DTAP,TDAP,TD (1 - Tdap) [facility] Start: 1980 Hepatitis C antibody , confirmatory test Hepatitis C Screening [facility] Start: 1980 Hepatitis C screening Hepatitis C [facility] Start: 1980 HEPATITIS C SCREENING HEPATITIS C [facility] Start: 1980 HIV SCREENING HIV SCREENING [facility] Start: 1977 HIV screening HIV Screening [facility] Start: 1974 Adolescent depressio n screening assessment Depression Screening (PHQ9) [facility] Start: 1974 Depression screening using PHQ-9 (Patient Health Questionnaire 9) score Depression Screening (PHQ9) [facility] Start: 1962 Hepatitis C antibody , confirmatory test HEPATITIS C SCREENING [facility] Start: 1962 Screening for malign ant neoplasm of colon Colorectal Cancer Screening: Colonoscopy [facility] Start: 1962 Colonoscopy COLONOSCOPY [facility] Work Phone: Start: 1962 HEPATITIS C SCREENING HEPATITIS C SC REENING [facility] Work Phone: Start: 1962 Screening colonoscopy COLONOSCOPY [facility] Start: 1962 TETANUS EVERY 10 YR TETANUS EVERY 10 YR [facility] Work Phone: Start: 1962 End: 1962 Tetanus vaccination [facility] Basic metabolic 2008 panel with ionized calcium - Serum or Plasma [place] Lipid 1996 panel - S addie or Plasma [place] Magnesium measurement [facility] End: 02-14-2022 MR Knee Right Without Contrast MR Knee Right Without Contrast Imaging Routine Primary osteoarthritis of right knee Chondromalacia of patellofemoral joint, right 1 Occurrences starting 02/14/2021 until 02/14/2022 [facility] Comment on above: 1 Occurrences starti ng 02/14/2021 until 02/14/2022 Patient referral [facility] Work Phone: SARS-CoV-2 (COVID-19 ) RdRp gene [Presence] in Respiratory specimen by MOINE with probe detection COVID-19, Molecular Microbiology Routine Sore throat 06/15/2021 6:45 PM EDT [facility] Work Phone: Thyroid stimulating hormone measurement [place] End: 05-26-2019 US Pelvic Transabdominal and Transvaginal US Pelvic Transabdominal and Transvaginal Imaging Routine Post-menopause bleeding Fibroids Once for 1 Occurrences starting 05/26/2019 until 05/26/2019 [facility] Comment on above: Once for 1 Occurrenc es starting 05/26/2019 until 05/26/2019 US Pelvic Transabdom inal and Transvaginal US Pelvic Transabdominal and Transvaginal Imaging Routine Post-menopause bleeding Fibroids 05/26/2019 4:50 PM EDT [facility] Immunizations Immunization Date Immunization Notes Care Provider Shelby gómez 12-08-2020 Moderna SARS-CoV-2 Vaccination Shana Guerra [facility] 11-09-2020 Moderna SARS-CoV-2 Vaccination Covid Oes Pcp [facility] Payers Date Payer Category Payer Private Health Insurance [id number] 2024 Unknown [id number] 2024 Self-pay [id number] 2021 Unknown ANTHEM BLUE CARD PPO OOS [id number] 2021-Present [phone] [address] [place] [address] PPO [id number] 2021 Unknown [id number] 2020 Unknown [id number] 1.2.840.134840.1.13.385.2. 7.3.340611.315 2020 Unknown [id number] 2014 Unknown [id number] 2.16.840.1.678108.3.249.13 2014 Unknown [id number] 2.16.840.1.001183.3.249.13 2014 Unknown [id number] 1.2.840.175123.1.13.385.2. 7.3.955214.315 1962 Unknown [id number] 2.16.840.1.199416.3.579.2. 900 1962 Unknown [id number] 2.16.840.1.404176.3.579.2. 900 1962 Unknown [id number] 2.16.840.1.234337.3.579.2. 900 1962 Unknown [id number] 2.16.840.1.001871.3.579.2. 903 1962 Unknown [id number] 2.16.840.1.934287.3.579.2. 903 1962 Unknown [id number] 2.16.840.1.950036.3.579.2. 903 1962 Unknown [id number] 2.16.840.1.889077.3.579.2. 903 1962 Unknown [id number] 2.16.840.1.500135.3.579.2. 903 1962 Unknown [id number] 2.16.840.1.824696.3.579.2. 903 1962 Unknown [id number] 2.16.840.1.514094.3.579.2. 1962 Unknown [id number] 2.16.840.1.300386.3.579.2. 1962 Unknown [id number] 2.16.840.1.869910.3.579.2. 1962 Unknown [id number] 2.16.840.1.888904.3.579.2. 1962 Unknown [id number] 2.16.840.1.198315.3.579.2. 1962 Unknown [id number] 2.16.840.1.284843.3.579.2. 1962 Unknown [id number] 2.16.840.1.781834.3.579.2. 1962 Unknown [id number] 2.16.840.1.832715.3.579.2. 1962 Unknown [id number] 2.16.840.1.125851.3.579.2. 1962 Unknown [id number] 2.16.840.1.492146.3.579.2. 1962 Unknown [id number] 2.16.840.1.573420.3.579.2. 627 1962 Unknown [id number] 2.16.840.1.233703.3.579.2. 627 Unknown [id number] 2.16.840.1.945573.3.579.2. 462 Unknown [id number] 2.16.840.1.098014.3.579.2. 462 Unknown [id number] 2.16.840.1.238253.3.579.2. 462 Unknown [id number] 2.16.840.1.239935.3.579.2. 462 Unknown [id number] 2.16.840.1.543499.3.579.2. 462 Unknown [id number] 2.16.840.1.408816.3.579.2. 462 Unknown [id number] 2.16.840.1.491179.3.579.2. 462 Unknown [id number] 2.16.840.1.244562.3.579.2. 462 Unknown [id number] 2.16.840.1.949865.3.579.2. 462 Unknown [id number] 2.16.840.1.180865.3.579.2. 462 Unknown [id number] 2.16.840.1.209906.3.579.2. 462 Unknown [id number] 2.16.840.1.470587.3.579.2. 462 Unknown [id number] 2.16.840.1.394271.3.579.2. 462 Social History Date Type Detail Facility Start: 01-07-2017 End: 06-22-2017 Tobacco smoking status ILIS Never smoker [facility] Start: 1960 Sex Assigned At Not on file [facility] Work Phone: Start: 01-07-2017 Alcohol Comment socially [facility] Start: 08-21-2020 End: 06-15-2021 Tobacco use and exposure Never used [facility] Start: 08-21-2020 End: 07-20-2021 Alcohol intake Current drinker of alcohol (finding) [facility] Exposure to SARS-CoV -2 (event) Not sure [facility] Start: 08-24-2020 End: 03-06-2021 History SDOH Alcohol Frequency 4 [facility] Start: 08-24-2020 End: 03-06-2021 History SDOH Alcohol Std Drinks 1 [facility] Exposure to SARS-CoV -2 (event) Yes [facility] Start: 06-15-2021 End: 09-13-2024 Tobacco smoking status ILIS Ex-smoker [facility] History of tobacco use Cigarette Smoker [facility] Start: 07-08-2021 End: 07-20-2021 Alcohol intake [facility] Start: 12-13-2021 End: 02-10-2024 Tobacco smoking status ILIS Unknown if ever smoked [facility] Start: 1960 Sex Assigned At Female W [facility] Start: 01-10-2025 End: 05-17-2025 Sex Female (finding) [place] Sexual Orientation Sherrill Delgado [place] NEGATED: Highlighted row Not [place] Medical Equipment Procedure Code Equipment Code Equipment Origin al Text Equipment Identifier Dates Colonoscopy Ligation clip, metallic [id number] FDA Start: 09-15-2024 Goals Date Patient Goal Desired Activity /State Mental Status Date Assessment Result Facility 09-15-2024 Cognitive function Voice/Name [facility] Work Phone: Clinical Notes 02-14-2021 to 01-26-2025 Note Date & Type Note Facility 01-26-2025 Discharge summary Note Date/Time January 26, 2025 7:00 pm [place] [facility] [address] [facility] [place] [address] / REHABILITATION SERVICES DISCHARGE SUMMARY MR#: [id number] Acct: [id number] Name: DAVID OROSCO Rep #: [id number] 15 : 1960 64 From: Cert. GURDEEP Francis, [facility] Referring Dr.: Dr. Michell Tirado MD Status: REG R Insurance: [facility] PACK[employer] PLAN Discharge Summary D/C summary: It has been my pleasure to treat DAVID OROSCO referred by Dr. Michell Tirado MD, with the diagnosis of KNEE PAIN for a total of 7 visit(s). Discharge Date: 01/26/25 Please see the following information for a summary of their discharge status. Subjective Subjective: Doing well with ex's Standing up from chair easier Patient able to do steps easier Pain Right Knee: Pain Intensity (Out of 10): 2 Left Knee: Pain Intensity (Out of 10): 2 Overall Improvement % Improvement: 75 Objective Objective/Function: POSTURE: bilateral mod knee valgus PALPATION:unremarkable GAIT: reciprocal pattern NEURO: denies paresthesia/tingling AROM: supine knee flexion 0-125 degrees ,0-125 degrees MMT: ( peak force) quads right 54.9 ,left 54.9 ,hamstrings right 49.8.8 ,left 48.9 ,hip flexion right 34.1 ,left 38.2 ,hip abduction right 28.9 , left hip abduction 29.1 STAIRS: one step at time with rail bilateral Goals Goal 1:: Patient to be I with HEP for knees Goal Progress: Goal Met Goal 2:: Patient to demonstrate 50 % improvement with less pain and improved function with gait Goal Progress: Goal Met Goal 3:: Patient to improve LFES score by 5 points to improve function with QOL Goal Progress: Goal Met Goal 4:: Patient to improve peak force hips by 5-10# to improve function and strength Goal Progress: Goal Met Plan Plan: D/C D/C Information Discharge Comments: HEP d/c sentence: If there are questions or concerns regarding this patient's physical therapy, please feel free to call me at [phone]. Thank you for the referral of thispatient. Sincerely, Doc Martin PT, Cert MDT, OCS Balance/Gait/Functional tests Balance/Special Test Scores Lower Extremity Functional Score: 41 Improvement % Improvement: 75 <Electronically signed by Cert. GURDEEP Cifuentes PT, OCS> 01/26/25 1526 CC: Dr. Michell Tirado MD ~ GABRIELLA Signed [place] Work Phone: 1(324) 197-498104-03-2025 Discharge summary [place] [facility] [address] [place] [address] [address] [place] [address] / REHABILITATION SERVICES DISCHARGE SUMMARY MR#: [id number] Acct: [id number] Name: DAVID OROSCO Rep #: [id number] : 1960 64 From: Cert. GURDEEP Francis, OCS Referring Dr.: Dr. Michell Tirado MD Status: REG RCR Insurance: [facility] PACKAGE PLAN Discharge Summary D/C summary: It has been my pleasure to treat DAVID OROSCO referred by Dr. Michell Tirado MD, with the diagnosis of KNEE PAIN for a total of 7 visit(s). Discharge Date: 01/26/25 Please see the following information for a summary of their discharge status. Subjective Subjective: Doing well with ex's Standing up from chair easier Patient able to do steps easier Pain Right Knee: Pain Intensity (Out of 10): 2 Left Knee: Pain Intensity (Out of 10): 2 Overall Improvement % Improvement: 75 Objective Objective/Function: POSTURE: bilateral mod knee valgus PALPATION:unremarkable GAIT: reciprocal pattern NEURO: denies paresthesia/tingling AROM: supine knee flexion 0-125 degrees ,0-125 degrees MMT: ( peak force) quads right 54.9 ,left 54.9 ,hamstrings right 49.8.8 ,left 48.9 ,hip flexion right 34.1 ,left 38.2 ,hip abduction right 28.9 , left hip abduction 29.1 STAIRS: one step at time with rail bilateral Goals Goal 1:: Patient to be I with HEP for knees Goal Progress: Goal Met Goal 2:: Patient to demonstrate 50 % improvement with less pain and improved function with gait Goal Progress: Goal Met Goal 3:: Patient to improve LFES score by 5 points to improve function with QOL Goal Progress: Goal Met Goal 4:: Patient to improve peak force hips by 5-10# to improve function and strength Goal Progress: Goal Met Plan Plan: D/C D/C Information Discharge Comments: HEP d/c sentence: If there are questions or concerns regarding this patient's physical therapy, please feel free to call me at [phone]. Thank you for the referral of thispatient. Sincerely, Doc Martin, PT, Cert MDT, OCS Balance/Gait/Functional tests Balance/Special Test Scores Lower Extremity Functional Score: 41 Improvement % Improvement: 75 01/26/25 1526 CC: Dr. Michell Tirado MD ~ JLA Signed [place]11-21-2024 Evaluation note* Diagnosis Onset Date Resolution Status Admit Date Encounter for screening for malignant neoplasm of colon acute Nove mbabdi 2023 9:[address] [place] [address] Work Phone: 1(343) 217-876811-21-2024 [facility] Medical Records Department [address] [place] [address] History Physical Exam 09/15/24 0951 MR#: [id number] Acct: [id number] Name: DAVID OROSCO Rep #: [id number] : 1960 64 From: Abilio Friend DO PCP: Dr. Michell Tirado MD Status:[facility] Location: [address] HPI - General General Date of Admission: 09/15/24 Date of Service: 09/15/24 Chief Complaint: Screening colonoscopy HPI Narrative DAVID OROSCO, is a 64 F who presents today for screening colonoscopy. She had a colonoscopy approximately 10 years ago that was normal. She denies any abdominal pain. She denies any chest pain or shortness of breath. Overall she is in very good health. [facility] Medical History (Updated 09/13/24 @ 09:46 by Flores Yeh) Wears glasses Post-menopausal Alcohol use Arthritis Former smoker History of edema History of Holter monitoring History of echocardiogram History of stress test Cardiology follow-up encounter History of irregular heartbeat Abnormal mammogram Near syncope Obstructive sleep apnea hypopnea, mild History of paroxysmal atrial tachycardia Premature ventricular contraction Leiomyoma of body of uterus Ventricular premature depolarization Nonsustained paroxysmal ventricular tachycardia Hypertension Hyperlipidemia Home Medications ???Medication ???Instructions ???Recorded ???Last Taken ???Type loratadine 10 mg tablet (Claritin) 10 mg PO QDAY PRN allergy symptoms 05/10/18 Unknown History calcium carbonate (Calcium 500) 500 mg PO DAILY 12/13/21 Unknown History omega-3 fatty acids 1,000 mg 1,000 mg PO DAILY 12/13/21 Unknown History capsule (Fish Oil Concentrate) multivitamin (Daily Multi-Vitamin 1 tab PO DAILY 08/06/22 Unknown History tablet) vvpshnvtreo-uld-uwykycrhs-hrb 1 tab PO BID 01/01/24 Unknown History 149-hyalur 500 mg-500 mg-66.7 mg tablet (Tzrpiogxyis-Oofutrlywdl-QXV (with antiox)) losartan 25 mg tablet 25 mg PO BID #180 tabs 01/11/24 Unknown Rx metoprolol succinate 25 mg 25 mg PO DAILY #90 tabs 01/11/24 Unknown Rx tablet,extended release 24 hr diltiazem HCl 360 mg 360 mg PO DAILY #90 caps 04/08/24 Unknown Rx capsule,extended release 24 hr evolocumab 140 mg/mL subcutaneous 140 mg subcut Q2W #2 mL 06/20/24 Unknown Rx pen injector (Mckenna Patel) Allergy/AdvReac Type Severity Reaction Status Date / Time pravastatin AdvReac Severe Severe Verified 09/13/24 09:37 myalgias simvastatin AdvReac Severe Severe Verified 09/13/24 09:37 myalgias ezetimibe (From Zetia) AdvReac Intermediate Myalgias Verified 09/13/24 09:37 Family History Brother Diabetes Hypertension Hyperlipidemia CAD (coronary artery disease) Stented coronary artery Sister Atrial fibrillation Alcoholism Mother Alcoholism Lung cancer Surgical History (Updated 09/13/24 @ 09:46 by Flores Yeh) History of cardiac catheterization Hx of colonoscopy History of arthroscopy of right knee (07/05/21) Social History (Updated 07/21/24 @ 08:57 by Olivia Birmingham) household members: spouse current occupational status: retired Smoking Status: Former smoker how long ago did patient quit smokin alcohol intake: current alcohol intake frequency: a few times a week substance use type: does not use caffeine: Yes Type: coffee Number of servings: 2 what type of physical activity do you participate in: swimming and other details: ski frequency: 3-4 times per week seatbelt use: always do you feel safe at home: Yes additional social history: -Adelaide ROS Review of Systems ROS Unobtainable: other Constitutional Constitutional: Denies fatigue, fever(s), poor appetite, weight gain or weight loss ENT HEENT: Denies mouth lesions Cardiovascular Cardiovascular: Denies abdominal bloating, abdominal edema or abdominal pain Respiratory/Chest Respiratory/Chest: Denies change in mental status, change in phlegm color, chest congestion or chest tightness Gastrointestinal Gastrointestinal: Denies belching, bloating, change in bowel habits, change in stool character, chewing difficulty, coffee ground emesis, constipation, cramping, diarrhea, dyspepsia, dysphagia, early satiety, excessive flatus, fecal incontinence, heartburn, hematemesis, hematochezia, hemorrhoids, loose stools, melena, nausea, odynophagia, rectal bleeding, tenesmus, vomiting or weight changes Genitourinary Genitourinary: Denies abdominal discomfort, burning urination or itching Musculoskeletal Musculoskeletal: Reports as per HPI; Denies muscle weakness or myalgias Integumentary Integumentary: Denies jaundice Neurologic Neurologic: Denies lack of coordination or weakness Psychiatric Psychiatric: Denies confusion, depression, memory loss, mood swings, paranoia or (more content not included)...[place]02-27-2023 NotePap Smear Specimen AdequacyFebruary 2022 11:17amComment.Satisfactory for evaluation. Endocervical component may not bedistinguished in cases of atrophy. [facility] INTERFACED A#[id number] Health MiamisburgComment on above: Satisfactory for evaluation. Endocervical component may not bedistinguished in cases of atrophy.10-31-2022 Miscellaneous Notes* Letter - Mammography Coordinator - 10/31/2022 4:07 PM EST November 03, 2022 PID: [id number] David Orosco [address] [place] [address] Dear Ms. Orosco, Your prior imaging studies [...] dense breast tissue in addition to other riskfactors. Early detection of cancer is very important. We also understand recommendations regarding breast cancer screening are controversial. Please discuss with your primary care provider which strategy is best for you and whether a mammogram is right for you. Your imaging studies and report will be kept on file at [facility] as part of your permanent medical record and are available for your continuing care. Thank you for allowing us to help in meeting your health care needs. Sincerely, Dr. Leonardo Interpreting Radiologist (Normal Old Films compared) documented in this encounterPark[facility]12-30-2022 Miscellaneous Notes* Letter - Mammography Coordinator - 10/24/2022 4:13 PM EST October 28, 2022 PID: [id number] David Rosa [address] [place] [address] Dear Ms. Larsenmaria del carmen, Your prior imaging studies have arrived and [...] dense breast tissue in addition to other riskfactors. Early detection of cancer is very important. We also understand recommendations regarding breast cancer screening are controversial. Please discuss with your primary care provider which strategy is best for you and whether a mammogram is right for you. Your imaging studies and report will be kept on file at [facility] as part of your permanent medical record and are available for your continuing care. Thank you for allowing us to help in meeting your health care needs. Sincerely, Dr. Leonardo Interpreting Radiologist (Normal Old Films compared) documented in this encounterParkview [facility]12-27-2022 Miscellaneous Notes* Letter - Mammography Coordinator - 10/21/2022 8:04 AM EST October 21, 2022 PID: [id number] David Orosco [address] [place] [address] Dear Ms. Larsenmaria del carmen, Your breast imaging exam 10/17/2022 showed a possible finding that may require additional imaging studies for a complete evaluation. However, we recognize you have prior imaging studies at facilitiesother than [facility], and would like the opportunity to [...] dense breast tissue in addition to other riskfactors. If/when your prior studies arrive, a final [...] are kept on file at [facility] as part of your permanent medical record, and are available for your continuing care. If you have any questions or concerns, please call [phone]. Thank you for choosing [facility] for your imaging needs. Sincerely, Dr. Leonardo Interpreting Radiologist (Old Films) documented in this encounterParkview Health [facility] Hospital12-23-2022 NoteHNO ID: [id number] Author: RT Barrett(R) Service: ? Author Type: Technologist Type: Progress Notes Filed: 10/17/2022 1:20 PM Note Text: Radiology Service Progress Note PATIENT NAME: David Orosco DATE OF SERVICE: October 17, 2022 [...] BY: RT Barrett(R) October 17, 2022 1:19 [facility]09-25-2021 History of Present illness Narrative* Kanu Phipps MD - 07/20/2021 10:23 AM EDT David Orosco comes in today for a followup [...] degrees short of full extension and 120 degreesof flexion. No DVT signs or symptoms. Calves [...] on a p.r.n. basis. documented in this [id number] History of Present illness Narrative* Kanu Phipps MD - 06/22/2021 7:01 AM EDT She comes in today for a preoperative consultation regarding her right knee. David is a patient who has had right knee pain and discomfort for quite some period of time. However, over the course of the last 6 months, it has really started to increase in its severity and its consistency. 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 Unfortunately, by the end of October, she tried a2nd shot and there was no relief whatsoever. [...] This patient went on to have x-ray exa mination. X-ray examination, 4 views of the right [...] fully vaccinated for COVID-19. documented in this [id number] History of Present illness Narrative* Herman Taylor MD - 06/15/2021 6:50 PM EDT PATIENT NAME: David Orosco [facility] [address] [facility] [address] : 1960 DATE OF VISIT: 06/15/2021 #: [id number] PROVIDER: Herman Taylor MD Chief Complaint [...] Friends and Family: Not on file Attends Evangelical Services: Not on file Active Member of [...] TABS losartan (COZAAR) 25 MG tablet omega 2-kma-tre-fish oil (FISH OIL) 300-1,000 mg CpDR Take by mouth . aspirin 81 MG EC tablet ASPIRIN EC 81 MG TBEC LISINOPRIL ORAL Take by mouth . No current facility-administered medications on file prior to visit. ALLERGIES/INTOLERANCES Allergies Allergen Reactions Pravastatin Simvastatin Gorxkck-Poi-Atw Reductase Inhibitors OBJECTIVE BP 130/84 Pulse 67 [...] TABS losartan (COZAAR) 25 MG tablet omega 0-rpq-klt-fish oil (FISH OIL) 300-1,000 mg CpDR Take by mouth . aspirin 81 MG EC tablet ASPIRIN EC 81 MG TBEC LISINOPRIL ORAL Take by mouth . No current facility-administered medications for this visit. Isolate pending result. documented in this [id number] Instructions* Patient Instructions* Herman Taylor MD - 06/15/2021 6:39 PM EDT [facility] COVID-19 Post-swabbing Instructions We will do our best to update you as soon as we receive your test results, but if we had to send your test to be run at the lab, you may see the results on MyChart or receive a call from [facility] before we are able to contact you. [...] meant to keep the infected person away fromall others, even in their own home. If [...] have decided together not to do asymptomatic COVID- 19 testing at this time (or your test [...] separate themselves from others, monitor their health, andfollow directions from their state or local health [...] Moderna vaccines) OR 2 weeks after a single- dose vaccine (such as [employer] Emerita [...] results. - If you have an active [employer]or[employer] account, and your COVID-19 test is negative (not detected), then you will be notified through your [employer] account. You should call the urgent care if you have any further questions. - If your COVID-19 test is positive (detected), you will receive a phone call to discuss your results and answer any questions you might have at that time. Please make sure [facility] has your updated phone number so we can contact you. [facility] will notify the [facility] of any positive results to comply with [...] they are not required to quarantine. If theyhave symptoms, they need a negative test to [...] and warm water and/or alcohol based hand meat hostess, scrubbing your hands for at least 20 [...] your way Other COVID Questions? CDC - https://www.cdc.gov/coronavirus/2019-ncov/index.html - https://www.cdc.gov/coronavirus/2019-ncov/th-ocs-jtz-sick/quarantine.html [facility] - Website: https://coronavirus.[place].gov/wps/portal/gov/covid-19/home - Hotline: 259-7-JYF-ODH (954-087-8106) [facility]: https://blog.AnchorFree.StyleSaint/series/zskhn-55-xsezdzohhvm-toolkit/ documented in this [id number] History of Present illness Narrative* Bibiana Dupree CNP - 04/24/2021 2:30 PM EDT [facility] [address] [facility] [address] [facility] [id number] No chief complaint on file. David Orosco returns to the office today for [...] the right knee pain. She denies any newinjuries or significant changes within the right knee. [...] further review. Allergies Allergen Reactions Pravastatin Simvastatin Qcljmxf-Pcm-Odl Reductase Inhibitors Current Outpatient Medications: aspirin 81 MG EC tablet, ASPIRIN EC 81 MG TBEC, Disp: , Rfl: diltiazem (CARDIZEM CD) 120 MG 24 hr capsule, , Disp: , Rfl: glucosamine sulfate 2KCl 1,000 mg Tab, GLUCOSAMINE HCL TABS, Disp: , Rfl: LISINOPRIL ORAL, Take by mouth ., Disp: , Rfl: omega 6-ack-rye-fish oil (FISH OIL) 300-1,000 mg CpDR, Take [...] Social Gatherings with Friends and Family: Attends Evangelical Services: Active Member of Clubs or Organizations: [...] utilizing conservative treatment measures, oral pain medications, injectionsas well as outpatient physical therapy without any [...] arthroscopy with meniscectomy and chondroplasty with Dr. Phipps. Unfortunately the patient feels as though this is the only way she can obtain some symptom and pain relief. She would like to move forward and have the knee arthroscopy with Dr. Phipps. I did explain that the office will contact her to schedule this. I am more than happy to see her back in the office as needed prior to her surgery. She does verbalize understanding and is in agreement with this treatment plan. documented in this [id number] History of Present illness Narrative* Isma Hunter, PT - 04/24/2021 1:00 PM EDT [facility] OUTPATIENT REHABILITATION DAILY TREATMENT NOTE Today's Date 04/24/2021 Patient Name: David Orosco Date of : 1960 Current Visit [...] Visit 5: 1:04 - 1:41 Therapeutic Exercise (73303) Intervention SciFit - x5 min Lvl 3 [...] Hold pending follow up with referring provider Isma Hunter PT State License, [id number] documented in this [id number] History of Present illness Narrative* RothAyush, CHIEF MEDICAL TECHNOLOGIST - 04/10/2021 7:45 AM EDT [facility] OUTPATIENT REHABILITATION DAILY TREATMENT NOTE Today's Date 04/10/2021 Patient Name: David Orosco Date of : 1960 Current Visit #: 4 Authorized Visits: 50 Case Name: Right Knee Pain History: Pre-Treatment Pain Scale: 2 Symptoms: stabilized Functional Diagnosis: 1. Primary osteoarthritis of right knee 2. Chondromalacia patellae of right knee Clinical Information: Subjective: Pt reports knee was hurting yesterday after hiking 2 miles and wokring around house. Pthas swelling today. Objective Treatments: Physical Therapy Exercise Log - 04/10/21 0750 OTHER Notes Visit 4: 7:50 - 8:30 Therapeutic Exercise (34993) Intervention SciFit - x5 min Lvl 3 [...] with focus on strengthening and VMO tracking Ayush Roth PTA STATE LICENSE, [id number] documented in this [id number] History of Present illness Narrative* Ayush Roth PTA - 04/05/2021 11:30 AM EDT [facility] OUTPATIENT REHABILITATION DAILY TREATMENT NOTE Today's Date 04/05/2021 Patient Name: David Orosco Date of : 1960 Current Visit [...] Visit 3: 11:27 - 12:03 Therapeutic Exercise (51703) Intervention SciFit - x5 min Lvl 3 [...] with focus on strengthening and patellar tracking Ayush Roth PTA STATE LICENSE, [id number] documented in this [id number] History of Present illness Narrative* Isma Hunter, PT - 02/27/2021 8:30 AM EDT [facility] OUTPATIENT REHABILITATION Evaluation Today's Date 02/27/2021 Patient Name: David Orosco Date of : 1960 Case Name: [...] fracture or dislocation identified bilaterally. There is cdva-pa-bkaqtvqj tricompartmental osteoarthritis involving the right knee, most significant the medial compartment. No joint effusion or layering lipohemarthrosis. There is xszv-ov-ekyeybmy bicompartmental osteoarthritis involving the left knee. 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 CPT Code 72850 Low 77162 Moderate 16772 High History 0 1-2 3+ Comorbidities: OA, [...] impairments result in the following functional limitations: supervisor rod placing, functional mobility, recreational activities, quality of life, [...] as well as swelling and pain control. Isma Hunter PT State License, [id number] documented in this [id number] History of Present illness Narrative* Bibiana Dupree CNP - 02/14/2021 3:21 PM EDT Associated Order(s): LG Jt Injection/Arthrocentesis: R knee Post-Procedure Diagnose(s): Primary osteoarthritis of right knee; Chondromalacia of patellofemoral joint, right LG Jt Injection/Arthrocentesis: R knee Performed by: Bibiana Dupree CNP Authorized by: Bibiana Dupree CNP CPT 53411 - Large Joint Arthrocentesis: Consent given by: [...] the procedure well with no immediate complications * Bibiana Dupree, COST ANALYST - 02/14/2021 3:04 PM EDT David Orosco 1960 CC: 60 y.o. is a [...] as well as uses ice which do calmthe knee down but it just continues to worsen. This swelling she has today started in Nov and really hasn't gone down since. She denies any instability in the knee but does have difficulty with up and down stairs. There is popping and cracking in the knee but not catching or locking up. PMH: Allergies Allergen Reactions Pravastatin Simvastatin Vmwqlhr-Qsx-Nyp Reductase Inhibitors Current Outpatient Medications: aspirin 81 MG EC tablet, ASPIRIN EC 81 MG TBEC, Disp: , Rfl: diltiazem (CARDIZEM CD) 120 MG 24 hr capsule, , Disp: , Rfl: glucosamine sulfate 2KCl 1,000 mg Tab, GLUCOSAMINE HCL TABS, Disp: , Rfl: LISINOPRIL ORAL, Take by mouth ., Disp: , Rfl: omega 3-kam-vqd-fish oil (FISH OIL) 300-1,000 mg CpDR, Take [...] file Gets together: Not on file Attends scientology service: Not on file Active member of [...] to person, place, and time. She appears well- developed and well-nourished. HENT: Head: Normocephalic. Eyes: Pupils [...] no effusion present Imaging:R Knee There is gzkc-qx-iwxwdpah tricompartmental osteoarthritis involving the right knee, most significant the medial compartment Assessment/Plan: After examination and reviewing of the patient x-ray images, we discussed treatment options. I did offer her another cortisone injection which she gladly accepted. I did this withoutcomplications and she tolerated this well. Given that she has been utilizing injections and oral otc pain medications with no improvement and worsening symptoms, I am going to start her in outpatientphysical therapy and get a MRI for further diagnostic evaluation. I will see her back for her results. She verbalizes understanding and is in agreement with the treatment plan. Diagnosis: Problem List Items Addressed This Visit None Follow Up: No follow-ups on file. Bibiana Dupree CNP documented in this encounterOhHealthEvaluation + Plan note Future Appointments [facility] Evaluation note* Diagnosis Chondromalacia of patellofemoral joint, right- Primary Primary osteoarthritis of right knee documented in this encounter [...] Other postprocedural status [facility] Diagnosis Onset Date Resolution Status History of paroxysmal atrial tachycardia chronic Hyperlipidemia chronic Hypertension chronic Nonsustained paroxysmal ventricular tachycardia chronic Obstructive sleep apnea hypopnea, mild chronic Premature ventricular contraction chronic Ventricular premature depolarization chronic [place] Work Phone: Evaluation note* Diagnosis Onset Date Resolution Status History of paroxysmal atrial tachycardia chronic Hyperlipidemia chronic Hypertension chronic Nonsustained paroxysmal ventricular tachycardia chronic Premature ventricular contraction chronic Ventricular premature depolarization chronic [place] Work Phone: Evaluation note* Diagnosis Onset Date Resolution Status Mixed stress and urge incontinence acute Encounter for routine gynecological examination noneactive [place] Work Phone: Evaluation noteNo assessment information available [place] Work Phone: Evaluation note* Diagnosis Onset Date Resolution Status History of paroxysmal atrial tachycardia chronic Hyperlipidemia chronic Hypertension chronic Nonsustained paroxysmal ventricular tachycardia chronic Premature ventricular contraction chronic Ventricular premature depolarization chronic Dense breast tissue acute Mixed stress and urge incontinence acute Encounter for routine gynecological examination noneactive [place] Work Phone: Evaluation note* Diagnosis Onset Date Resolution Status History of paroxysmal atrial tachycardia chronic Hyperlipidemia chronic Hypertension chronic Nonsustained paroxysmal ventricular tachycardia chronic Premature ventricular contraction chronic Ventricular premature depolarization chronic Dense breast tissue acute Mixed stress and urge incontinence acute Encounter for routine gynecological examination noneactive Left breast mass acute [place] Work Phone: Evaluation note* Diagnosis Onset Date Resolution Status Admit Date Preop cardiovascular exam acute June 06, 2025 8:58am History of paroxysmal atrial tachycardia chronic June 06 8:58am Hyperlipidemia chronic May 8:58am Hypertension chronic June 06, 2025 8:58am Nonsustained paroxysmal ventricular tachycardia chronic May [id number] 8:58am Premature ventricular contraction chronic June 06 8:58am Ventricular premature depolarization chronic June 06 8:58am [facility] Work Phone: Hospital course Narrative No data available for this section [facility] Hospital Discharge instructions No data available for this section [facility] Progress note No data available for this section [facility] Reason for referral (narrative)No reason for referral [facility] Work Phone: Assessments Diagnosis Postartificial menopausal sy ndrome - [...] Fibroids Leiomyoma of uterus, unspecified Advance Directives Documents on File Type Date Recorded Patient Classifier Tender Expl anation Advance Directives and Livin g Will 08/21/2020 3:39 PM Documents on File Type Date Recorded Patient Classifier Tender Expl anation Advance Directives and Livin g Will 08/21/2020 3:39 PM Documents on File Type Date Recorded Patient Classifier Tender Expl anation Advance Directives and Livin g Will 05/26/2019 3:39 PM Documents on File Type Date Recorded Patient Classifier Tender Expl anation Advance Directives and Livin g Will 04/02/2021 5:27 PM Documents on File Type Date Recorded Patient Classifier Tender Expl anation Advance Directives and Livin g Will 07/05/2021 5:30 AM Documents on File Type Date Recorded Patient Classifier Tender Expl anation Advance Directives and Livin g Will 07/09/2021 5:30 AM Advance Directive Response Recorded Date/ Time Living Will No September 13, 024 10:46am Power of Linker Up No September 13, 2024 10:46am Summary Purpose Family History Relationship Condition Age at Onset Recorded Date/T mirna brother Diabetes mellitus Unknown Hypertension Unknown Hyperlipidemia Unknown Coronary artery disease Unknown Presence of stent in coronary artery Unkn own sister Atrial fibrillation Unknown Alcoholism Unknown mother Alcoholism Unknown Malignant neoplasm of lung Unknown Reason for Referral Status Reason Specialty Diagnoses / Procedures Referre d By Contact Referred To Contact Closed Radiology Diagnoses Visit for screening mammogram Procedures Mammography Screening West Bilateral Mammography Screening Bilateral Ruba Jacobsen MD [address] [place], [place] [address] [address] Status Reason Specialty Diagnoses / Procedures Re ferred By Contact Referred To Contact Closed Central Scheduling Diagnoses Post-menopause bleeding Fibroids Procedures US Pelvic Transabdominal and Transvaginal Ruba Jacobsen MD [facility] [facility] [address] [address] Central Scheduling [address] [place] [address] Status Reason Specialty Diagnoses / Procedures Referred By Contact Referred To Contact Authorized Rehabilitation Diagnoses Primary osteoarthritis of right knee Chondromalacia of patellofemoral joint, right Bibiana Dupree, COST ANALYST [address] [place] [address] [facility] [place] [address] [place] [address] Status Reason Specialty Diagnoses / Procedures Re ferred By Contact Referred To Contact New Request Radiology Diagnoses Primary osteoarthritis of right knee Chondromalacia of patellofemoral joint, right Procedures MR Knee Right Without Contrast Bibiana Dupree, BERNY [address] [id number] Specialty Diagnoses / Procedures Referred By Contac t Referred To Contact Cardiology Diagnoses Acute medial meniscus tear of right knee, subsequent encounter S/P right knee arthroscopy Procedures Ultrasound duplex venous leg right Kanu Phipps MD [address] [id number] Referral ID Status Reason Start Date Expiration Date V isits Requested Visits Authorized [id number] New Request 07/10/2021 07/10/2022 1 1 Chief Complaint and Reason for Visit Chief Complaint E ORDER Irreg heartbeat L.Lorson ARRYTHMIA Reason for Visit History of paroxysma l atrial tachycardia Hyperlipidemia Hypertension Nonsustained paroxysmal ventricular tachycardia Obstructive sleep apnea hypopnea, mild Premature ventricular contraction Ventricular premature depolarization Chief Complaint 6 M FU Reason for Visit History of paroxysma l atrial tachycardia Hyperlipidemia Hypertension Nonsustained paroxysmal ventricular tachycardia Premature ventricular contraction Ventricular premature depolarization Chief Complaint 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) Reason for Visit Mixed stress and urg e incontinence Encounter for routine gynecological examination Chief Complaint PELVIC MASS EORDER Chief Complaint PELVIC MASS EORDER 1 Y FU/PREV PFM 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) Reason for Visit History of paroxysma l atrial tachycardia Hyperlipidemia Hypertension Nonsustained paroxysmal ventricular tachycardia Premature ventricular contraction Ventricular premature depolarization Dense breast tissue Mixed stress and urge incontinence Encounter for routine gynecological examination Chief Complaint PELVIC MASS EORDER 1 Y FU/PREV PFM 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) SCREEN LT BREAST ABN MAMM Reason for Visit History of paroxysma l atrial tachycardia Hyperlipidemia Hypertension Nonsustained paroxysmal ventricular tachycardia Premature ventricular contraction Ventricular premature depolarization Dense breast tissue Mixed stress and urge incontinence Encounter for routine gynecological examination Chief Complaint EORDER 1 Y FU/PREV PFM 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 RX HERE January 10, 2025 8:0 0am Reason for Visit Admit Date Encounter for screening for malignant ne oplasm of colon September 15, 2024 9:41am Chief Complaint Admit Date COUGHING / DRAINAGE / SINUS November 8:57am EORDER December 27, 2024 7:24 am KNEE PAIN. RX HERE January 26, 2025 3:00 pm Chief Complaint Admit Date COUGHING / DRAINAGE / SINUS November 8:57am EORDER December 27, 2024 7:24 am KNEE PAIN. RX HERE January 26, 2025 3:00 pm SCREENING March 14, 2025 2:44p m Chief Complaint Admit Date SCREENING March 14, 2025 2:44p m 1 Y FU June 06, 2025 8: 58am Reason for Visit Admit Date Preop cardiovascular exam June 06, 8:58am History of paroxysmal atrial tachycardia June 06, 2025 8:58am Hyperlipidemia June 06, 2025 8: 58am Hypertension June 06, 2025 8: 58am Nonsustained paroxysmal ventricular tach ycardia June 06, 2025 8:58am Premature ventricular contraction June 06, 2025 8:58am Ventricular premature depolarization May us2024 8:58am Additional Source Comments Reason for Visit (unrecogniz ed section and content) Status Reason Specialty Diagnoses / Procedures Referred By Contact Referred To Contact Pending Review Radiology Diagnoses Breast nodule Procedures US Breast Left Limited US Breast Left Complete Ines Ch CNP [address] [place] [address] [place] [address] Central Scheduling [address] [place] [address] Status Reason Specialty Diagnoses / Procedures Referre d By Contact Referred To Contact Closed Radiology Diagnoses Visit for screening mammogram Procedures Mammography Screening West Bilateral Mammography Screening Bilateral Ruba Jacobsen MD [facility] [address] [place] [address] Status Reason Specialty Diagnoses / Procedures Re ferred By Contact Referred To Contact Closed Central Scheduling Diagnoses Post-menopause bleeding Fibroids Procedures US Pelvic Transabdominal and Transvaginal Ruba Jacobsen MD [address] [facility] [address] [place] [address] Central Scheduling [address] [place] [address] Status Reason Specialty Diagnoses / Procedures Referred By Contact Referred To Contact Pending Review Radiology Diagnoses Breast nodule Procedures Mammography Diagnostic West Bilateral Mammography Diagnostic Bilateral Ines Ch CNP [address] [facility] [address] [place] [address] Central Scheduling [address] [place] [address] Reason Comments Pain Reason Comments Physical Therapy Status Reason Specialty Diagnoses / Procedures Referred By Contact Referred To Contact Authorized Rehabilitation Diagnoses Primary osteoarthritis of right knee Chondromalacia of patellofemoral joint, right Bibiana Dupree, COST ANALYST [address] [place] [address] [facility] [place] [facility] [place] [address] Reason Comments Results Reason Comments Covid-19 Screening headache, sore throa t, x this morning. fully vaccinated Reason Comments Pre-op Exam right knee Reason Comments Suture / Staple Removal Wound Check INFORMATION SOURCE (unrecogn ized section and content) DATE CREATED AUTHOR 06/18/2019 [facility] DATE CREATED AUTHOR AUTHOR'S ORGANIZ ATION 06/16/2021 [facility] Care DATE CREATED AUTHOR AUTHOR'S ORGANIZ ATION 07/20/2021 [facility] latory DATE CREATED AUTHOR AUTHOR'S ORGANIZ ATION 08/23/2021 [facility] DATE CREATED AUTHOR AUTHOR'S ORGANIZ ATION 11/05/2022 [facility] DATE CREATED AUTHOR AUTHOR'S ORGANIZ ATION 04/01/[address] [facility] DATE CREATED AUTHOR AUTHOR'S ORGANIZ ATION 06/06/2025 [facility] Care Teams (unrecognized sec tion and content) Reference Archivist Relationship Specialty Start Date End Date Gabe Weinberg MD [address] [place] [address] PCP - WADE Attributed Provider - [facility] 01/10/19 Michell Tirado MD [address] [place] [address] PCP - General Internal Medicine 05/26/19 Britta Weldon MD [address] [place] [address] 2 [place], [place] [address] 03/25/11 Ruba Jacobsen MD [address] [facility] [address] [place] [address] Track Production Engineer Obstetrics/Gynecolo gy 04/06/18 Ruba Jacobsen MD [address] [facility] [address] [place] [address] WADE Attributed Provider - [employer] Obstetrics/Gynecolo gy 09/01/17 [place] [facility] [place] [address] WADE Attributed Provider - Family Medicine Family Medicine 01/07/17 Reference Archivist Relationship Specialty Start Date End Date Gabe Weinberg MD [address] [place] [address] PCP - WADE Attributed Provider - [facility] 01/10/19 Michell Tirado MD [address] [place] [place] [address] PCP - General Internal Medicine 05/26/19 Britta Weldon MD [address] [place] [address] 2 [place], [place] [phone] 03/25/11 Ruba Jacobsen MD [address] [address] Track Production Engineer Obstetrics/Gynecolo gy 04/06/18 Ruba Jacobsen MD [address] [place] [address] [place] [address] WADE Attributed Provider - HOLIST[employer]SER Obstetrics/Gynecolo gy 09/01/17 Robert Hendricks MD [address] [place] [address] WADE Attributed Provider - Family Medicine Family Medicine 01/07/17 Reference Archivist Relationship Specialty Start Date End Date Gabe Weinberg MD [address] [facility] [place] [address] PCP - WADE Attributed Provider - [facility] 01/10/19 Michell Tirado MD [address] [place] [place] [address] PCP - General Internal Medicine 05/26/19 Britta Weldon MD [address] [facility] [address] [place] [address] 03/25/11 Ruba Jacobsen MD [address] [address] Track Production Engineer Obstetrics/Gynecolo gy 04/06/18 Ruba Jacobsen MD [facility] [address] [address] WADE Attributed Provider - HOLISTIC PULSER Obstetrics/Gynecolo gy 09/01/17 Robert Hendricks MD [address] [place] [address] WADE Attributed Provider - Family Medicine Family Medicine 01/07/17 Reference Archivist Relationship Specialty Start Date End Date Gabe Weinberg MD [address] [employer] [facility] [place] [address] PCP - WADE Attributed Provider - [facility] 01/10/19 Michell Tirado MD [address] [place] [place] [address] PCP - General Internal Medicine 05/26/19 Britta Weldon MD [facility] [address] [place] [address] 03/25/11 Ruba Jacobsen MD [facility] [facility] [address] [place] [address] Track Production Engineer Obstetrics/Gynecolo gy 04/06/18 Ruba Jacobsen MD 0[address] [facility] [address] [place] [address] WADE Attributed Provider - HOLISTIC PULSER Obstetrics/Gynecolo gy 09/01/17 Robert Hendricks MD [address] [place] [address] WADE Attributed Provider - Family Medicine Family Medicine 01/07/17 Reference Archivist Relationship Specialty Start Date End Date Gabe Weinberg MD [address] [employer] [facility] [place] [address] PCP - WADE Attributed Provider - [facility] 01/10/19 Michell Tirado MD [address] [place] [place] [address] PCP - General Internal Medicine 05/26/19 Britta Weldon MD [address] [facility] [address] [place] [address] 03/25/11 Ruba Jacobsen MD [address] [facility] [address] [place] [address] Track Production Engineer Obstetrics/Gynecolo gy 04/06/18 Ruba Jacobsen MD [address] [facility] [address] [place] [address] WADE Attributed Provider - HOLISTIC PULSER Obstetrics/Gynecolo gy 09/01/17 [place] [facility] [place] [address] WADE Attributed Provider - Family Medicine Family Medicine 01/07/17 Team Status: Active Member Role Status Dates Dr. Michell Tirado MD Family Provider Active Dr. Michell Tirado MD Primary Care Provider Active Team Status: Inactive Member Role Status Dates Dr. Michell Tirado MD Primary Care Provider, Referrin g Provider Active Pamela Marina CNM Attending Provider Active Team Status: Inactive Member Role Status Dates Dr. Michell Tirado MD Primary Care Provider Active Pamela Marina CNM Attending Provider Active Team Status: Inactive Member Role Status Dates Dr. Michell Tirado MD Primary Care Provider Active Dr. Janine Chavez MD Attending Provider, Referring P rovider Active Team Status: Inactive Member Role Status Dates Dr. Michell Tirado MD Primary Care Provider Active Sophie Acevedo GRANTS AND CONTRACTS ASSISTANT, GRANTS AND CONTRACTS ASSISTANT-C Attending Provider, Referring P rovider Active Team Status: Inactive Member Role Status Dates Dr. Michell Tirado MD Primary Care Provider, Referrin g Provider Active Sophie Acevedo GRANTS AND CONTRACTS ASSISTANT, GRANTS AND CONTRACTS ASSISTANT-C Attending Provider Active Team Status: Inactive Member Role Status Dates Dr. Michell Tirado MD Primary Care Prov ider, Attending Provider, Referring Provider Active Team Status: Active Member Role Status Dates Dr. Michell Tirado MD Primary Care Prov ider, Attending Provider, Referring Provider Active Team Status: Inactive Member Role Status Dates Dr. Michell Tirado MD Primary Care Provider, Referrin g Provider Active Dr. Julius Warren MD Attending Provider Active Team Status: Inactive Member Role Status Dates Dr. Michell Tirado MD Primary Care Provider Active Dr. Julius Warren MD Attending Provider, Referr ing Provider Active Team Status: Active Member Role Status Dates Dr. Michell Tirado MD Primary Care Provider Active Team Status: Inactive Member Role Status Dates Dr. Michell Tirado MD Primary Care Provider Active Start: September 15, 2024 End: September 15, 2024 Dr. Michell Tirado MD Referring Provider Active Start: September 15, 2024 End: September 15, 2024 Dr. Abilio Estevez DO Attending Provider Active Start: September 15, 2024 End: September 15, 2024 Team Status: Active Member Role Status Dates Dr. Michell Tirado MD Primary Care Provider Active Start: September 15, 2024 Dr. Michell Tirado MD Referring Provider Active Start: September 15, 2024 Dr. Abilio Estevez DO Attending Provider Active Start: September 15, 2024 Dr. Abilio Estevez DO Other Provider Active St art: September 15, 2024 Team Status: Inactive Member Role Status Dates Dr. Michell Tirado MD Primary Care Provider Active Start: December 20, 2024 End: December 20, 2024 Dr. Michell Tirado MD Referring Provider Active Start: December 20, 2024 End: December 20, 2024 Keith Collier PA, PA Attending Provider Active Start: December 20, 2024 End: December 20, 2024 Team Status: Inactive Member Role Status Dates Dr. Michell Tirado MD Primary Care Provider Active Start: December 27, 2024 End: December 27, 2024 Jazlyn Sen PA, PA Attending Provider Active Start: December 27, 2024 End: December 27, 2024 Jazlyn Sen PA, PA Referring Provider Active Start: December 27, 2024 End: December 27, 2024 Team Status: Active Member Role Status Dates Dr. Michell Tirado MD Primary Care Provider Active Start: January 10, 2025 Dr. Michell Tirado MD Attending Provider Active Start: January 10, 2025 Dr. Michell Tirado MD Referring Provider Active Start: January 10, 2025 Team Status: Inactive Member Role Status Dates Dr. Michell Tirado MD Primary Care Provider Active Start: January 26, 2025 End: January 26, 2025 Dr. Michell Tirado MD Attending Provider Active Start: January 26, 2025 End: January 26, 2025 Dr. Michell Tirado MD Referring Provider Active Start: January 26, 2025 End: January 26, 2025 Team Status: Inactive Member Role Status Dates Dr. Michell Tirado MD Primary Care Provider Active Start: March 14, 2025 End: March 14, 2025 Dr. Michell Tirado MD Attending Provider Active Start: March 14, 2025 End: March 14, 2025 Dr. Michell Tirado MD Referring Provider Active Start: March 14, 2025 End: March 14, 2025 Team Status: Active Member Role/Relationship Status Dates Dr. Michell Tirado MD Primary Care Provider Active Team Status: Inactive Member Role/Relationship Status Dates Dr. Michell Tirado MD Primary Care Provider Active Start: March 14, 2025 End: March 14, 2025 Dr. Michell Tirado MD Attending Provider Active Start: March 14, 2025 End: March 14, 2025 Dr. Michell Tirado MD Referring Provider Active Start: March 14, 2025 End: March 14, 2025 Team Status: Inactive Member Role/Relationship Status Dates Dr. Michell Tirado MD Primary Care Provider Active Start: April 25, 2025 Dr. Janine Chavez MD Attending Provider Active Start: April 25, 2025 Team Status: Inactive Member Role/Relationship Status Dates Dr. Michell Tirado MD Primary Care Provider Active Start: June 06, 2025 End: June 06, 2025 Dr. Mihcell Tirado MD Referring Provider Active Start: June 06, 2025 End: June 06, 2025 Jim Dyson NP, GRANTS AND CONTRACTS ASSISTANT-C Attending Provider Active S tart: June 06, 2025 End: June 06, 2025 Goals (unrecognized section and content) Goals may be documented in a n alternate sectionGoals may be documented in an alternate sectionGoals may be documented in an alternate sectionGoals may be documented in an alternate sectionGoals may be documented in an alternate sectionGoals may be documented in an alternate sectionGoals may be documented in an alternate sectionGoals may be documented in an alternate sectionGoals may be documented in an alternate sectionGoals may be documented in an alternate section No data available for this sectionGoals may be documented in an alternate section Source Comments (unrecognize d section and content) In the event this informatio n is protected by the Federal Confidentiality of Alcohol and Drug Abuse Patient Records regulations: The Federal rules restrict any use of the information to criminally investigate or prosecute any alcohol or drug abuse patient.[facility] HospitalIn the event this information is protected by the Federal Confidentiality of Alcohol and Drug Abuse Patient Records regulations: The Federal rules restrict any use of the information to criminally investigate or prosecute any alcohol or drug abuse patient.[facility] HospitalIn the event this information is protected by the Federal Confidentiality of Alcohol and Drug Abuse Patient Records regulations: The Federal rules restrict any use of the information to criminally investigate or prosecute any alcohol or drug abuse patient.[facility] FOR RECORDS PERTAINING TO PATIENTS WHO [...] BE BASED ON THE PRIMARY CLINICAL RECORDS. [facility] [employer] [facility]. provides no warranty or guarantee of the accuracy or completeness of information in this document.
[2025-06-12 10:56] LABS: Anion Gap 12 (5-15); BUN 13 mg/dL (4-19); BUN/Creat Ratio 19.3 RATIO (10-20); Calcium,Total 9.6 mg/dL (7.6-11.0); Carbon Dioxide 26.9 mmol/L (21.0-32.0); Chloride 104 mmol/L (98-108); Glucose 91 mg/dL (70-99); Magnesium 2.2 mg/dL (1.5-2.2); Potassium 4.0 mmol/L (3.3-5.1)
== END | disposition home or self-care (01) ==
LOC: MTLAB 07:04
PROVIDERS: Nurse Practitioner Family; PCP Family Medicine; Referring Provider Family Medicine; Visit Provider Family Medicine
DX: I10 Essential (primary) hypertension (principal); I49.3 Ventricular premature depolarization; Z86.79 Personal history of other diseases of the circulatory system
CPT/HCPCS: 36415; 80048; 83735; 84443

== ENCOUNTER → 2025-07-13 | Outpatient (CLI) | payer BC, SELFPAY ==
[2025-07-13 13:32] LABS: AST(SGOT) 28 U/L (<=31); Alanine Aminotransfer ALT/SGPT 28 U/L (<=34); Albumin, Serum 4.3 g/dL (3.4-4.8); Alkaline Phosphatase 92 U/L (35-104); Bilirubin, Direct 0.26 mg/dL (0.00-0.30); Cholesterol 167 mg/dL (<=200); Globulin 2.4 g/dL (2.2-4.2); Low Density Lipoprotein Calc. 59 mg/dL; Triglycerides 129 mg/dL; Very Low Density Lipoprotein 26 mg/dL (5-40); cholesterol:hdl ratio screen 2.02
== END | disposition home or self-care (01) ==
LOC: MTLAB 09:38
PROVIDERS: PCP Family Medicine; Referring Provider Physician Assistant Medical; Visit Provider Physician Assistant Medical
DX: E78.2 Mixed hyperlipidemia (principal)
CPT/HCPCS: 36415; 80061; 80076

== ENCOUNTER → 2025-07-25 | Outpatient (CLI) | payer BC, SELFPAY ==
--- OUTSIDE RECORDS SUMMARY | 2025-06-16 06:26 | XMS RPT_ITS ---
Author Name Auto Generated Organization [facility] Care Team Providers Care Heating And Ventilation Engineer Name Role Phone MALATHI CID Primary Care Unavailable CHRISTIANO PASTRANA DPM Attending Unavailable MALATHI CID Primary Care Unavailable CHRISTIANO PASTRANA DPM Attending Unavailable PROBLEMS No Problem Records Found PROCEDURES No Procedure Records Found RESULTS CBC Collected: 11:29 AM Status: F Source: [facility] Order Comment: Pre-Admission Testing TYPE CODE TESTS RESULT OUT OF RANGE REFERENCE UNITS LAB WBC(LOINC) WBC 4.1 Low 4.5-10.8 10 3/mcL LAB RBCCT(LOINC) RBC 4.50 4.10-5.30 10 6/mcL LAB HGB(LOINC) Hgb 14.3 12.0-16.0 G/dL LAB HCT(LOINC) Hct 41.8 34.0-46.0 % LAB MCV(LOINC) MCV 92.7 80.0-99.0 fL LAB MCH(LOINC) MCH 31.7 27.0-33.0 pg LAB MCHC(LOINC) MCHC 34.2 32.0-36.0 G/dL LAB RDW(LOINC) RDW 12.9 11.5-15.5 % LAB PLT(LOINC) Platelet 234 150-450 10 3/mcL LAB MPV(LOINC) MPV 8.7 6.6-10.5 fL Performed By: #### BMP, GFR, CBC, ANEU, ADIFF #### [facility] [address] [place], [place] [address] .AUTO DIFF Collected: 06/05/2025 11:29 AM Status: F Source: [facility] TYPE CODE TESTS RESULT OUT OF RANGE REFERENCE UNITS LAB EARL(LOINC) Neutrophil % 51.0 50.0-75.0 % LAB LYM(LOINC) Lymphocyte % 33.9 20.0-40.0 % LAB MON(LOINC) Monocyte % 7.8 2.0-13.0 % LAB EO(LOINC) Eosinophil % 6.1 High 0.0-6.0 % LAB BAS(LOINC) Basophil % 1.2 0.0-2.5 % LAB ABLYM(LOINC) Lymphocyte, Absolute 1.4 0.9-4.3 10 3/mcL LAB DANIELLA(LOINC) Monocyte, Absolute 0.3 0.1-1.4 10 3/mcL LAB AEOS(LOINC) Eosinophil, Absolute 0.2 0.0-0.7 10 3/mcL LAB ABAS(LOINC) Basophil, Absolute 0.0 0.0-0.3 10 3/mcL Performed By: #### BMP, GFR, CBC, ANEU, ADIFF #### [address] [address] .NEUABS Collected: 11:29 AM Status: F Source: [facility] TYPE CODE TESTS RESULT OUT OF RANGE REFERENCE UNITS LAB ANEU(LOINC) Neutrophil, Absolute 2.1 Low 2.3-8.1 10 3/mcL Performed By: #### BMP, GFR, CBC, ANEU, ADIFF #### [address] [address] BMP Collected: 06/05/2025 11:29 AM Status: F Source: [facility] TYPE CODE TESTS RESULT OUT OF RANGE REFERENCE UNITS LAB GLU(LOINC) Glucose Level 94 80-115 mg/dL LAB NA(LOINC) Sodium Level 144 136-145 mmol/L LAB K(LOINC) Potassium Level 4.2 3.5-5.1 mmol/L LAB CL(LOINC) Chloride 106 98-107 mmol/L LAB CO2(LOINC) CO2 32 High 23-31 mmol/L LAB EBAL(LOINC) Electrolyte Balance 6.0 4.0-15.0 mEq/L LAB BUN(LOINC) BUN 11 7-18 mg/dL LAB CRE(LOINC) Creatinine Lvl (s) 0.62 0.51-0.95 mg/dL LAB BC(LOINC) BUN/Creatinine Ratio 18 7-27 ratio LAB CA(LOINC) Calcium Lvl 9.5 8.4-10.2 mg/dL Performed By: #### BMP, GFR, CBC, ANEU, ADIFF #### [address] [place], [place] [address] .GFR Collected: 11:29 AM Status: F Source: [facility] TYPE CODE TESTS RESULT OUT OF RANGE REFERENCE UNITS LAB eGFR(LOINC) Estimated Glomerular Filtration Rate 100 ml/min/1. 73sqm Result Comment: Stages of Chronic Kidney Disease [...] calculate the eGFR results. Performed By: #### BMP, GFR, CBC, ANEU, ADIFF #### [address] [place], [place] [address] ALLERGIES No Allergies Records Found ENCOUNTERS ADMIT/DISCHARGE ACCOUNT NUMBER ADMITTING ENCOUNTER CLASS LOC ATION SOURCE 06/16/2025/ 5 [id number] Ambulatory [facility]: [place]oom: [address] [facility] 06/05/2025/ 5 [id number] Ambulatory [facility]: [facility] PAYERS ENCOUNTER GUARANTOR PAYER SUBSCRIBER SOURCE 06/16/2025 DAVID GLEASONOB: [id number] [address] [place], [place] [address]Lke: () Primary Insurance:[employer] [employer] [facility]ITAL[facility] Number: [id number] e Date:2816-14-51Cmok Name:ERA GIBBONS [id number], [place] [address]PJ: DAVID GLEASONOB: [id number] [place], [place] [address]Wnx: (HP) (WP) [facility] 06/05/2025 DAVID CHARLES: [place], [place] [address]Dxu: (HP) Primary Insurance:[employer] INSCOPolicy Number: [id number] e Date:[id number] Name:[place] [address]MK: DAVID CHARLES: [id number] [place], [place] [address]Hlt: (HP) (WP) [facility]
[2025-07-25 11:27] LABS: Free T3 3.2 pg/mL (2.18-3.98)
== END | disposition home or self-care (01) ==
LOC: MTLAB 08:27
PROVIDERS: PCP Family Medicine; Referring Provider Family Medicine; Visit Provider Family Medicine
DX: E03.9 Hypothyroidism, unspecified (principal)
CPT/HCPCS: 36415; 84439; 84443; 84481; 86376; 86800